=== PATIENT | female | born 1950 | race Caucasian/White ===

== ENCOUNTER 2019-01-09 13:30 | Inpatient (IN) | payer MEDICARE, MEDICAID ==
[~2019-01-09] VITALS: Ht 162.6 cm; Wt 91.2 kg
--- NOTE | ~2019-01-09 | PR ---
[place], [place] PROGRESS NOTE NAME: LEIGH MADDEN UNIT #: [id number] ROOM: 309 DOCTOR: BERTHA BETANCOURT MD BIRTHDATE: [birth year] DOS: 01/14/2019 INTERVAL NOTE CHIEF COMPLAINT: "I am okay." SUMMARY OF THE VISIT: The patient was interviewed as she was resting in a Homa chair. She did open her eyes and make eye contact and engaged in very brief superficial conversation. She voiced no complaints and tended to minimize everything and was rather dismissive. Nurses report she continues to have periods of paranoia and depression. MENTAL STATUS: She is alert and oriented to self, possibly place, but not to time. Mood does seem to be still depressed and still rather paranoid. Memory has gaps. PLAN: To simplify her regimen and to try to lessen the risk of tremors, I will discontinue the Depakote ER and the Invega. I will increase the Cogentin from 0.5 mg twice a day to 1 mg twice a day and substitute the Abilify for the Invega trying to lessen the risk of EPS. We will engage in individual and herbert milieu activity, returning to the least restrictive environment when psychiatrically stable. BERTHA BETANCOURT MD CM:PNTRANS [id number] BERTHA BETANCOURT MD 01/14/19 1123 interface
--- NOTE | ~2019-01-09 | PR ---
[place], [place] PROGRESS NOTE NAME: LEIGH MADDEN UNIT #: [id number] ROOM: 309 DOCTOR: BERTHA BETANCOURT MD BIRTHDATE: [birth year] DOS: 01/17/2019 CHIEF COMPLAINT: "I think I'm doing better, thank you. When can I go?" SUMMARY OF THE VISIT: The patient was interviewed in the dining room. She was sitting in a Homa chair. She smiled brightly as I approached and engaged readily in conversation, reporting that she has noticed that the tremors have become dramatically less. She also feels much better and is brighter and more spontaneous. She convincingly denies sedation, somnolence, or any other medication side effect. MENTAL STATUS: She is alert and oriented with minor time gaps. Mood does seem to be more euthymic. Affect is more appropriate. There is no baron, hypomania or gross psychosis. Short-term memory has mild gaps, otherwise she is intact. PLAN: I will increase her Mysoline from 25 mg at bedtime to 50 mg at bedtime trying to impact positively on the tremor. We will continue to engage in individual and herbert milieu activity, returning to the least restrictive environment when psychiatrically stable. BERTHA BETANCOURT MD CM:PNTRANS [id number] BERTHA BETANCOURT MD 01/17/19 2258 interface
--- NOTE | ~2019-01-09 | PR ---
[place], [place] PROGRESS NOTE NAME: LEIGH MADDEN UNIT #: [id number] ROOM: 309 DOCTOR: BERTHA BETANCOURT MD BIRTHDATE: [birth year] DOS: 01/18/2019 INTERVAL NOTE CHIEF COMPLAINT: "I feel better, but my tremors are not better." SUMMARY OF THE VISIT: The patient was interviewed in the dining area. As I approached, she said good morning honey, how are you. She was much more spontaneous and bright and much more able to converse. She reported that her tremors are not better, but she did seem to be better to me and I did not see significant upper body movement. She does report that her mood is improving and she is less depressed and she is sleeping and eating better. MENTAL STATUS: She is alert and oriented to person, place, approximate to time. Mood does seem to be strongly trending towards euthymia. Affect is much more appropriate. There are no auditory or visual hallucinations, delusions or paranoia. Short-term, intermediate, and long-term memory for the most part are intact. PLAN: I will go ahead and increase the Mysoline from 50 to 100 mg at bedtime. Continue to engage in individual and herbert milieu activity, returning to the least restrictive environment when psychiatrically stable. BERTHA BETANCOURT MD CM:PNTRANS 1 18 BERTHA BETANCOURT MD 01/18/192117 interface
--- NOTE | ~2019-01-09 | PR ---
[place], [place] PROGRESS NOTE NAME: LEIGH MADDEN UNIT #: [id number] ROOM: 309 DOCTOR: BERTHA BETANCOURT MD BIRTHDATE: [birth year] DOS: 01/21/2019 CHIEF COMPLAINT: "I am going home today, no I am going home today." SUMMARY OF THE VISIT: The patient was interviewed in the dining area where she was very adamant about returning back to [place] today. When I told her I did not know if this was possible because transportation might be an issue, she very angrily told me she was planning to leave one way or another. Outwardly prior to me approaching her, she was much calmer and there was no tremor of her upper extremities; however, as I approached her and began to engage her in conversation, the tremors intensify greatly. She is not exhibiting any sedation or somnolence or other side effects from the medications themselves. MENTAL STATUS: She is alert and oriented to person, place, approximate to time. Mood does seem to be more euthymic. Affect is more appropriate. There is no baron, hypomania or psychosis. Short, intermediate, and long-term memory for the most part are intact. PLAN: I will plan to increase her Mysoline from 100 mg at bedtime to 150 mg at bedtime targeting these tremors to see if we can help them dissipate completely. We will explore the possibility of obtaining transportation to [place]. If not, we will finalize transportation for tomorrow. BERTHA BETANCOURT MD CM:PNTRANS [id number] BERTHA BETANCOURT MD 01/21/19 2333 interface
--- NOTE | ~2019-01-09 | PR ---
[place], [place] PROGRESS NOTE NAME: LEIGH MADDEN UNIT #: [id number] ROOM: 309 DOCTOR: GERALD ARIZMENDI CNP BIRTHDATE: [birth year] DOS: 01/12/2019 CHIEF COMPLAINT: "Good." SUMMARY OF THE VISIT: The patient was interviewed as she sat in the dining room. The patient had her head resting on the table. The patient engages minimally in conversation with me, mostly one word answers. The patient does report that she had Sinhala toast and oatmeal, but did not eat the oatmeal. Staff reports that the patient did sleep well last night. She slept for 8 hours. The patient continues to overall displayed depressed mood. MENTAL STATUS EXAMINATION: The patient is alert and oriented. She was cooperative with me. There is no overt baron or hypomania noted. No delusions or paranoia noted. No psychotic symptoms noted. No auditory or visual hallucinations noted. The patient's mood is depressed. Her affect is flat and congruent with mood. PLAN: I will increase the patient's Remeron to 30 mg at bedtime. Plan is for that the Remeron will aid in alleviating depression symptoms. We will continue to encourage the patient to engage in individual and herbert milieu activity. Continue fall and safety precautions. Plan will be to return the patient to the least restrictive environment when she is considered psychiatrically stable. Gerald Arizmendi CNP CM:PNTRANS [phone] GERALD ARIZMENDI CNP 01/12/19 2244 interface
--- NOTE | ~2019-01-09 | PR ---
[place], [place] PROGRESS NOTE NAME: LEIGH MADDEN UNIT #: [id number] ROOM: 309 DOCTOR: GERALD ARIZMENDI CNP BIRTHDATE: [birth year] DOS: 01/13/2019 CHIEF COMPLAINT: "What did you have for breakfast." SUMMARY OF VISIT: The patient was interviewed as she sat in the dining room. The patient was sleeping when I entered; however, she did arouse easily whenever I called her name. The patient continues to have mostly one word answers. However, she did smile at me today and she reported that she feels that her mood is starting to improve. Staff reports that the patient did sleep 7 hours. Her appetite has been good. Taking medications as prescribed. MENTAL STATUS EXAMINATION: The patient is alert and oriented. The patient was pleasant and cooperative with me. No baron or hypomania noted. No delusions or paranoia noted. No psychotic symptoms noted. No auditory or visual hallucinations noted. Mood starting to trend towards euthymia. Affect congruent with mood. PLAN: We will continue the patient's medications as prescribed. The patient seems to be tolerating medications without side effects at this time. We will continue to monitor and support. Continue to encourage the patient to engage in individual and herbert milieu activity. Continue fall and safety precautions. Plan to return the patient to the least restrictive environment when she is considered psychiatrically stable. Gerald Arizmendi CNP CM:PNTRANS [phone] GERALD ARIZMENDI CNP 01/14/19 0031 interface
--- NOTE | ~2019-01-09 | WRIGHTHP ---
[place], [place] PATIENT HISTORY AND PHYSICAL EXAM NAME: LEIGH MADDEN UNIT #: [id number] ROOM: 309 DOCTOR: BERTHA BETANCOURT MD BIRTHDATE: [birth year] DOS: 01/10/2019 INITIAL PSYCHIATRIC EVALUATION CHIEF COMPLAINT: "Yes, I am okay." HISTORY OF PRESENT ILLNESS: This is a 68-year-old white female who is a resident of [facility] in [place], [place]. The patient was recently admitted there and has decompensated greatly with increased depression with poor sleep and appetite, poor ADLs. She also has become increasingly delusional and has been calling out to her brother, who was not present at the time. She has been responding to auditory hallucinations frequently. Complicating matters is recently the patient did fall and hit her head. However, an organic workup was negative. She is admitted now to rule out organic factors, to stabilize on medication and to engage in individual and herbert milieu activity. PAST MEDICAL HISTORY: Remarkable for a history of bipolar disorder, COPD, CVA, falls, debility, hyperlipidemia, hypertension, multiple sclerosis and spinal cord infarction. SOCIAL HISTORY: She is a former cigarette smoker, but does not drink alcohol or use drugs. ALLERGIES: She lists an allergy to SULFACET. STRENGTHS: Good verbal skills. WEAKNESSES: Chronic mental health issues, poor coping skills. MENTAL STATUS: The patient is alert and oriented to self. She was lying on her bed, appearing to be sleeping. She did respond only in one word responses and at no point in time did she ever open her eyes to look at me. She seemed to be somewhat depressed, paranoid. I could not test cognitive functions because of her lack of cooperation. DIAGNOSIS: Major depression, recurrent with psychotic features, rule out bipolar disorder with psychotic features. PLAN: I have discontinued her Risperdal 2 mg twice daily in lieu of Invega 6 mg a day. I have maintained her Depakote. She does have a history of seizure disorder. I have also maintained her p.r.n. hydroxyzine. I have added Remeron 15 mg at bedtime as an antidepressant. We will engage her in individual and herbert milieu activity, returning to the least restrictive environment when psychiatrically stable. [place], [place] PATIENT HISTORY AND PHYSICAL EXAM NAME: LEIGH MADDEN UNIT #: [id number] ROOM: 309 DOCTOR: BERTHA BETANCOURT MD BIRTHDATE: [birth year] BERTHA BETANCOURT MD CM:HISPHYS:PATIENT HISTORY AND PHYSICAL EXAMINATION [id number] BERTHA BETANCOURT MD 01/10/19 1250 interface
--- NOTE | ~2019-01-09 | PR ---
[place], [place] PROGRESS NOTE NAME: LEIGH MADDEN UNIT #: [id number] ROOM: 309 DOCTOR: BERTHA BETANCOURT MD BIRTHDATE: [birth year] DOS: 01/16/2019 CHIEF COMPLAINT: "Oh, how long have I been here." SUMMARY OF THE VISIT: The patient was interviewed in the dining area when I was talking to another patient. I noticed that she was resting comfortably and was not shaking at all. As I approached her, however, the tremors of her upper extremities worsened. Staff notes that this does tend to be a pattern and that it comes and goes. Overall though her mental status has cleared, and she is much more alert and conversant and spontaneous. She looks brighter and she smiles more readily. She reports an improved sleep and improved appetite. MENTAL STATUS: She is alert and oriented to person, place, very approximate to time, however. Mood does seem to be more euthymic. Affect is more appropriate. There is no baron, hypomania or psychosis. Short-term memory still is problematic. PLAN: I will go ahead and add Mysoline 25 mg at bedtime to see if this will impact positively on her tremor. We will engage her in individual and herbert milieu activity, returning to the least restrictive environment when psychiatrically stable. BERTHA BETANCOURT MD CM:PNTRANS 7 BERTHA BETANCOURT MD 01/16/1917 interface
--- NOTE | ~2019-01-09 | PR ---
[place], [place] PROGRESS NOTE NAME: LEIGH MADDEN UNIT #: [id number] ROOM: 309 DOCTOR: BERTHA BETANCOURT MD BIRTHDATE: [birth year] DOS: 01/15/2019 INTERVAL NOTE CHIEF COMPLAINT: "I feel better." Thank you. SUMMARY OF THE VISIT: The patient was interviewed as she was sitting in a Homa chair in the dining room. She had eaten most if not all of her breakfast. She was much more awake and conversant and able to make good eye contact. She still had bilateral upper extremity tremors, but states that she feels better with the new medication changes. MENTAL STATUS: She is alert and oriented to person, place, not time. Mood does seem to be improving. Affect is more appropriate. Speech is more normalized. There is no hypomania or baron. There is no gross psychosis. Short term memory has some gaps, otherwise she is intact. PLAN: I will increase her Cogentin from 1 mg b.i.d. to 1 mg t.i.d., hoping to suppress the tremor. We will monitor and support, engage in individual and herbert milieu activity, returning to the least restrictive environment when psychiatrically stable. BERTHA BETANCOURT MD CM:PNTRANS 4 [phone] BERTHA BETANCOURT MD 01/15/192226 interface
[2019-01-09] MEDS ORDERED: VISTARIL50 MG PO (13:31)
[2019-01-09] MEDS ORDERED: RISPERDAL2 M1 PO (13:32)
[2019-01-09] MEDS ORDERED: BACLOFEN20 M1 PO (13:33)
[2019-01-09] MEDS ORDERED: ASPIRIN81 M1 PO (13:33)
[2019-01-09] MEDS ORDERED: BENZTROPINE ME0.5 MG PO (13:34)
[2019-01-09] MEDS ORDERED: VITAMIN D31000 UNIT PO (13:36)
[2019-01-09] MEDS ORDERED: CLARITIN10 MG PO (13:37)
[2019-01-09] MEDS ORDERED: 'CLONIDINE0.1 MG PO (13:38)
[2019-01-09] MEDS ORDERED: DEPAKOTE SPRIN125 MG PO ×2 (13:39→13:40)
[2019-01-09] MEDS ORDERED: DOCUSATE SODIU100 M2 PO (13:41)
[2019-01-09] MEDS ORDERED: LAMOTRIGINE100 MG PO (13:42)
[2019-01-09] MEDS ORDERED: ZETIA10 MG PO (13:42)
[2019-01-09] MEDS ORDERED: MYRBETRIQ25 M1 PO (13:43)
[2019-01-09] MEDS ORDERED: LOSARTAN POTAS100 M1 PO (13:43)
[2019-01-09] MEDS ORDERED: NORVASC5 MG PO (13:44)
[2019-01-09] MEDS ORDERED: NYSTOP60 GM T (13:46)
[2019-01-09] MEDS ORDERED: OMEGA 3 1,0001 EACH PO (13:47)
[2019-01-09 21:41] VITALS: BP 131/68
--- NOTE | 2019-01-09 21:41 | NUR ---
[facility] 68[facility] under the services of BERTHA Sheriff MD with a diagnosis of MAJOR DEPRESSION RECURRENT WITH PSYCHOTIC FEATURES. Chief complaint is INCREASED DELUSIONS. Patient arrived via wheel chair from [facility] ER. Initial assessment completed. Vital signs taken and recorded. BERTHA SHERIFF MD notified of admission to the unit. Orders received. See assessment for past medical history, medications and allergies. Patient oriented to unit. [facility]. Clothing/patient valuable form completed. ARACELI DAVIS
--- NOTE | 2019-01-09 22:29 | NUR ---
DR CHEATHAM NOTIFIED OF ADMISSION. MED REC READY. HE IS COVERING FOR DR HOPKINS HOSPITALIST
--- NOTE | 2019-01-09 23:08 | NUR ---
ON UNIT TO SEE PATIENT AT THIS TIME, UPDATE PROVIDED. NO NEW ORDERS RECIEVED.
--- NOTE | 2019-01-09 23:56 | NUR ---
PT UNABLE TO PARTICIPATE IN ADMISSION PROCESS, AGITATED UPON AWAKENING. INFORMATION FOR ADMISSION PROVIDED FROM FACILITY. SKIN ASSESSMENT COMPLETE, NO OPEN AREAS OBSERVED. PT HAS "L" SHAPED SCABBING NOTED ON RIGHT CALF APPROX 5CM X 5CM, SCAB ON RIGHT HIP APPROX 1CM X .5CM, MULTIPLE SCABS ON LEFT KNEE AREA AND BRUISING ON BILATERAL LEGS. PER PREVIOUS FACILITY PT HAS HX OF DROPPING LIT CIGARETTES ON SELF DUE TO NOT BEING ABLE TO HOLD THEM. PT ALSO HAS 2+ NON PITTING EDEMA IN LEFT FOOT, 2-3+ PITTING EDEMA IN RIGHT FOOT, NO ERYTHEMA NOTED. PT ASSIST X3, INCONTINENT OF BOWEL AND BLADDER. MEDICATION COMPLIANT WITH MINIMAL DIFFICULTY, REFUSED TO PARTICIPATE IN EDUCATION. PT CURRENTLY LAYING DOWN WITH EYES CLOSED, RESPIRATIONS EASY AND REGULAR, NO SIGNS OR SYMPTOMS OF DISTRESS NOTED.
--- NOTE | 2019-01-10 05:54 | NUR ---
PATIENT OBSERVED ON Q 15 MIN CHECKS TO HAVE SLEPT APPROX 6 HOURS THROUGHOUT THE NIGHT WITH NO AWAKENINGS OR SIGNS AND SYMPTOMS OF DISTRESS NOTED.
[2019-01-10 06:19] LABS: BASO % 0.5 % (0.0-1.0); EOS # 0.2 10*3/uL (0.0-0.4); EOS % 3.1 % (1.0-4.0); HEMATOCRIT 41.6 % (37.0-47.0); LYMPH % 33.1 % (27.0-41.0); MEAN CELL VOLUME 95.2 fl (81.0-99.0); MEAN CORPUSCULAR HGB 29.7 pg (27.0-31.0); MEAN CORPUSCULAR HGB CONC 31.3 g/dl (33.0-37.0); MEAN PLATELET VOLUME 12.7 fl (9.6-12.3); MONO # 0.7 10*3/uL (0.1-1.0); NEUT # 3.2 10*3/uL (2.3-7.9); NEUT % 51.6 % (47.0-73.0); PLATELET COUNT AUTOMATED 117 10*3/uL (130-400); RED BLOOD COUNT 4.37 10*6/uL (4.10-5.10); RED CELL DISTRI WIDTH 15.3 % (0-14.5); WHITE BLOOD COUNT 6.1 10*3/uL (4.8-10.8)
--- NOTE | 2019-01-10 06:34 | NUR ---
PATIENT IRRITABLE THIS AM, REFUSED TO GET OUT OF BED STATING SHE IS STILL TIRED. PT ALSO REFUSED AM MEDICATIONS AFTER X3 ATTEMPTS, WILL NOT PARTICIPATE IN MEDICATION EDCUATION AT THIS TIME. NO SIGNS OR SYMPTOMS OF DISTRESS NOTED.
[2019-01-10 06:47] LABS: ALBUMIN 2.6 gm/dl (3.1-4.5); ALKALINE PHOSPHATASE 78 U/L (45-117); BUN 17 mg/dl (7-24); CHLORIDE 111 mmol/L (98-107); CHOLESTEROL 134 mg/dL (<200); CREATININE 0.81 mg/dL (0.55-1.02); POTASSIUM 3.9 mmol/L (3.5-5.1); SGOT/AST 10 IU/L (3-35); SGPT/ALT 14 U/L (12-78); SODIUM 144 mmol/L (136-145); TOTAL PROTEIN 5.4 gm/dL (6.4-8.2); TRIGLYCERIDES 85 mg/dl (<150); VLDL CHOLESTEROL 17 mg/dL (6-40)
[2019-01-10 06:57] LABS: HDL CHOLESTEROL 50 mg/dl (40-60); LDL CHOLESTEROL 67 mg/dL (9-159)
[2019-01-10 07:30] VITALS: BP 127/68
--- NOTE | 2019-01-10 07:33 | NUR ---
PHYSICAL THERAPY Nursing screen received. PT orders also received. Thank you. Maricruz Dumont,PT
--- NOTE | 2019-01-10 08:15 | NUR ---
Treatment Plan meeting with Dr. Baeza, RN, AT, SW and Violin Repairer. Plan for discharge Next week. Pt. will return to [facility].
--- NOTE | 2019-01-10 08:40 | NUR ---
PHYSICAL THERAPY PAtient in bed, soundly sleeping. PAtient would mumble a few words but unable to speak coherently and keep eyes open or stay awake. Staff aware. Will attempt at a later time or date. Thank you for this referral. Maricruz Dumont,PT
--- NOTE | 2019-01-10 08:49 | NUR ---
Patient in bed and did not get up for breakfast. When asked if she wanted to participate in therapy she shook her head yes but was unable to open her eyes or be alert to cooperate for OT eval. OTR will attempt at a later date. Winter Carias OTR/Fadia
[2019-01-10 10:08] LABS: VITAMIN D, 25-HYDROXY 39.9 ng/mL (30-100)
--- NOTE | 2019-01-10 11:39 | NUR ---
AM GROUP/STRESS REDUCTION PT ATTENDED GROUP AND PARTICIPATED BY LISTENING TO RELAXING MUSIC. PT EXHIBITED NO AGITATION DURING GROUP, WAS PLEASANT AND COOPERATIVE AND REQUESTED SOMETHING TO EAT. PT EXPRESSED NO DELUSIONS DURING GROUP.
--- NOTE | 2019-01-10 11:40 | NUR ---
DR. HOPKINS ON UNIT TO ASSESS PATIENT.
--- NOTE | 2019-01-10 14:19 | NUR ---
Nursing screen received and Occupational Therapy referral received. Thank you. Winter Carias OTR/l
--- NOTE | 2019-01-10 15:33 | NUR ---
PM GROUP PT DID NOT ATTEND AFTERNOON GROUP THERAPY. PT WAS IN BED NAPPING
--- NOTE | 2019-01-10 15:39 | NUR ---
P: DEPRESSED MOOD, FLAT AFFECT, DELUSIONAL THOUGHTS. I: ONE ON ONE TO EXPRESS EMOTIONAL FEELINGS, ENCOURAGE PATIENT TO BE OUT OF ROOM AND PARTICIPATE IN GROUP SESSIONS. R: PATIENT WAS UP IN WHEELCHAIR ALL MORNING UNTIL AFTER LUNCH. PATIENT SLEPT DURING GROUP SESSION. PATIENT IS ALERT AND ORIENTED TO PERSON, AWARE OF BEING IN HOSPITAL, DATE AND SITUATION. PATIENT BELIEVES SHE IS IN [facility]. MOOD IS DEPRESSED WITH FLAT AFFECT AND HOPELESS/HELPLESS. SLOW TO THOUGHT PROCESS DURING INTERVIEW. PATIENT TALKED TO NURSE WITH EYES CLOSED. DENIES ANY HALLUCINATIONS, DELUSIONS, HI/SI OR PAIN. PATIENT REPORTED HAVING SOME CRAZY THOUGHTS THAT GOT HER IN HERE BUT IS NOT HAPPENING NOW. ONLY ONE SINGLE EPISODES. 2 PERSON ASSIST WITH ACTIVITIES OF DAILY LIVING, INCONTINENT OF BOWEL AND BLADDER. 2 PERSON MECHANICAL LIFT FOR TRANSFERS. SET UP FOR MEALS. 1 ASSIST WITH MEALS DUE TO UPPER EXTREMITIES TREMORS. MEDICATION COMPLAINT WITH EDUCATION PROVIDED. Q 15 MINUTE SAFETY CHECKS MAINTAINED P: CONTINUE TO MONITOR FOR MOOD CHANGES, DELUSIONAL THOUGHTS AND GROUP PARTICIPATION. ENCOURAGE PATIENT PATIENT IN GROUP, PROVIDE ONE ON ONE AND REDIRECTION NEEDED.
[2019-01-10 20:00] VITALS: BP 114/97
--- NOTE | 2019-01-11 05:23 | NUR ---
P: WITHDRAWN I: ENCOURAGED PATIENT TO INTERACT WITH STAFF AND PEERS, ENCOURAGED MEDICATION COMPLIANCE. MONITORED BEHAVIORS WITH Q15 MINUTE SAFETY CHECKS. R: PT REMAINED WITHDRAWN AND QUIET P: CONTINUE TO ENCOURAGE MEDICATION COMPLIANCE, INTERACTIONS WITH STAFF AND PEERS, AND CONTINUE TO MONITOR BEHAVIORS WITH Q15 MINUTE SAFETY CHECKS.
--- NOTE | 2019-01-11 05:35 | NUR ---
PT SLEPT APPROXIMATELY 6 HOURS THIS SHIFT. Q15 MINUTE SAFETY CHECKS MAINTAINED.
--- NOTE | 2019-01-11 08:30 | NUR ---
Treatment Plan meeting with Monica CHAHAL, RN, AT, SW and Esthetic Dermatologist. Plan for discharge next week. Pt. will return to [facility].
[2019-01-11 08:51] VITALS: BP 140/74
--- NOTE | 2019-01-11 09:22 | NUR ---
Spoke with Milady at [facility] and Advised of plans to discharge next week. Clinical Updates faxed to [facility] Attn: Milady.
--- NOTE | 2019-01-11 11:30 | NUR ---
DR. HOPKINS ON UNIT TO ASSESS PATIENT.
--- NOTE | 2019-01-11 11:37 | NUR ---
AM GROUP/ART AND MUSIC PT WAS PRESENT FOR MORNING GROUP THERAPY BUT IS UNABLE TO PARTICIPATE AT THIS TIME DUE TO COGNITION AND HAND TREMORS. PT DID ENGAGE IN CONVERSATION WITH THIS HEEL BUILDER MACHINE AND EXPRESSED NO DELUSIONAL IDEATIONS DURING GROUP.
--- NOTE | 2019-01-11 11:38 | NUR ---
PHYSICAL THERAPY Spoke in length with staffing/nurse. PAtient is chornic earl and terminologist care. PAtient with no PT skills/needs. Will D/c PT orders at this time. RecommenD daily ROM with nursing care. Thank you for this referral. Maricruz Dumont,PT
--- NOTE | 2019-01-11 14:08 | NUR ---
Kacie Santacruz was evaluated by occupational therapy on 01/11/19. She has intention tremors of bilateral UE. Her bilateral UE AROM and strength were grossly evaluated secondary to her declining to participate with MMT. Her UE strength and ROM are impaired. She uses weighted silverware at the ECF but declines to attempt self-feeding during her evaluation. Patient has all necessary adaptive equipment at the ECF to complete self-feeding. No further acute OT at this time. Recommend return to ECF when patient is discharged. Sierra Contreras OTR/L
--- NOTE | 2019-01-11 15:34 | NUR ---
PM GROUP/LEISURE INTERESTS PT WAS IN DAYROOM AT START OF GROUP BUT WAS TAKEN TO BE TOILETED AND TO ROOM TO REST.
--- NOTE | 2019-01-11 18:53 | NUR ---
P: DEPRESSED MOOD, INTENTION UPPER BODY TREMORS AT WILL. HAND TREMORS WHILE EATING CHIP AND DROPPING BAG ON FLOOR, INTENTION HAND TREMORS TO FACE. I: ONE ON ONE AND REDIRECTION PROVIDED R: AFTER REDIRECTION, PATIENT'S HAND TREMORS STOPPED. PATIENT IS ALERT TO PERSON, PLACE, AND SITUATION; ABLE TO RECALL IN HOSPITAL, MONTH AND YEAR. PATIENT HAS INTERMITTANT CONFUSION. DENIES ANY HALLUCINATIONS, DELUSION, HI/SI OR PAIN. INTERACTIVE WITH STAFF AND PARTICIPATES IN GROUP SESSION. 1-2 PERSON ASSIST WITH ACTIVITIES OF DAILY LIVING, INCONTINENT OF BOWEL AND BLADDER, SET UP FOR MEALS, WITH ASSIST NEEDED. INTAKES ARE GOOD WITH ADEQUATE FLUIDS. TRANSFERS VIA MECHANICAL LIFT, 2 ASSIST. MEDICATION COMPLAINT WITH EDUCATION PROVIDED. Q 15 MINUTE SAFETY CHECKS MAINTAINED. P: CONTINUE TO MONITOR CONFUSION, TREMORS, MEDICATION COMPLIANCE; PROVIDE ONE ON ONE AND REDIRECTION NEEDED.
[2019-01-11 19:59] VITALS: BP 115/75
--- NOTE | 2019-01-11 21:34 | NUR ---
PT REQUESTED TYLENOL FOR A HEADACHE WITH A PAIN LEVEL OF 8 OUT 10. WHEN PATIENT WAS ASKED IF SHE GETS A LOT OF HEADACHES PT STATED YES. WHEN ASKED WHAT TRIGGERS HER HEADACHES PATIENT STATED STRESS. PT UNABLE TO ELABORATE ON WHAT THE STRESS IS THAT TRIGGERS HEADACHES. PT STATED JUST EVERYTHING. PRN TYLENOL 650 MG GIVEN AT THIS TIME.
--- NOTE | 2019-01-11 22:30 | NUR ---
PRN TYLENOL EFFECTIVE. PT RESTING QUIETLY IN BED AT THIS TIME. WILL CONTINUE TO MONITOR EFFECTIVENESS OF MEDICATION.
--- NOTE | 2019-01-12 04:44 | NUR ---
P: WITHDRAWN I: ENCOURAGED PATIENT TO INTERACT WITH STAFF AND PEERS, ENCOURAGED MEDICATION COMPLIANCE. MONITORED BEHAVIORS WITH Q15 MINUTE SAFETY CHECKS. R: PT REMAINED WITHDRAWN AND QUIET P: CONTINUE TO ENCOURAGE MEDICATION COMPLIANCE, INTERACTIONS WITH STAFF AND PEERS, AND CONTINUE TO MONITOR BEHAVIORS WITH Q15 MINUTE SAFETY CHECKS. SEE [facility] FLOWS[facility]ET FOR SPECIFIC MONITORING.
--- NOTE | 2019-01-12 05:21 | NUR ---
24 HR chart check completed.
--- NOTE | 2019-01-12 05:21 | NUR ---
PT SLEPT APPROXIMATELY 8 HOURS THIS SHIFT. Q15 MINUTE SAFETY CHECKS MAINTAINED.
[2019-01-12 07:33] VITALS: BP 138/82
--- NOTE | 2019-01-12 08:30 | NUR ---
Patient resting quietly with no c/o discomfort. Respirations easy and regular. Vital signs stable. No overt distress. MARIANO HALL
--- NOTE | 2019-01-12 10:00 | NUR ---
DR HOPKINS ON UNIT TO SEE PT
--- NOTE | 2019-01-12 11:45 | NUR ---
AM GROUP/MUSIC/LEISURE SKILLS PT ATTENDED AND PARTICIPATED SPORADICALLY IN DISCUSSION. PT HAD HEAD LAYING ON TABLE MOST OF GROUP. PT SUDDENLY STARTS SHAKING HAND BACK AND FORTH TOWARDS FACE ALMOST HITTING HERSELF, THIS STAFF HAS PT TAKE A DEEP BREATH AND PT STOPPED. PT DID NOT EXPRESS ANY DELUSIONS OR AGITATION AT THIS TIME. PT WILL CONTINUE TO ATTEND AND PARTICIPATE TO BEST OF ABILITY IN FUTURE GROUP SESSIONS.
--- NOTE | 2019-01-12 16:21 | NUR ---
PM GROUP/KELVIN PT ATTENDED AND PARTICIPATED DURING GROUP. PT SPORADICALLY MOVING ARM BACK AND FORTH IN RUBBING MOTION ON TABLE. PT DID NOT EXPRESS ANY DELUSIONS OR AGITATION AT THIS TIME. PT WILL CONTINUE TO ATTEND AND PARTICIPATE IN FUTURE GROUP SESSIONS.
--- NOTE | 2019-01-12 17:04 | NUR ---
P: LACK OF PARTICIPATION OR INTERACTION WITH PEERS OR STAFF, NOT ASSISTING WITH CARE I:ENCOURAGE MILIEU ACTIVITIES, GROUP PARTICIPATION, MEDICATION COMPLIANCE R: PT DID START TO REACT MORE THIS AFTERNOON WITH STAFF AND PEERS, OBSERVING AND KEEPING HEAD OFF OF TABLE, SHE HAS BEEN MEDICATION COMPLIANCE, WHEN ATTEMPTING 1:1 WITH PT SHE WOULD NOT RESPOND WITH MORE THEN A YES OR NO P: CONITNUE TO MONITOR WITH 15 MIN CHECKS AND ENCOURAGE INTERACTION, MEDICATION COMPLIANCE, PT HAS NO SI/HI OR DELUSIONS NOTED AT THIS TIME.
[2019-01-12 20:11] VITALS: BP 107/84
--- NOTE | 2019-01-12 22:00 | NUR ---
Medicated with Tylenol po prn for c/o headache. Will monitor effectiveness.
--- NOTE | 2019-01-12 22:33 | NUR ---
Patient alert and oriented x3. No SI/HI noted. No signs of any hallucinations/delusions noted at this time. Patient withdrawn/isolative when among other patients. Patient compliant with medications without any difficulty. Encouraged patient to participate in activities with other patients. Provided 1:1 with patient for emotional support. Plan to encourage medication compliance and plan to continue to encourage group participation. Plan to continue to provide 1:1 for emotional support. Q 15 minute safety checks continued and maintained. See [facility] flowsheet for further documentation.
--- NOTE | 2019-01-13 00:38 | NUR ---
24 HR chart check completed.
--- NOTE | 2019-01-13 05:29 | NUR ---
Patient slept approx. 7 hours throughout shift. Q 15 minute safety checks continued and maintained.
[2019-01-13 07:35] VITALS: BP 124/72
--- NOTE | 2019-01-13 08:00 | NUR ---
Patient does not want to feed self for breakfast this amRespirations easy and regular. laying head on table, will arouse when spoken to and turn head away from staff continue to encourage pt to be independant at this time. Vital signs stable. No overt distress. MARIANO HALL
--- NOTE | 2019-01-13 11:57 | NUR ---
AM GROUP/MUSIC/LEISURE SKILLS PT ATTENDED BUT SLEPT IN RECLINER ENTIRE TIME TO NOT WAKE UNTIL LUNCH. PT WILL CONTINUW TO ATTEND GROUP AND BE ENCOURAGED TO PARTICIPATE TO BEST OF PT ABILITY.
--- NOTE | 2019-01-13 17:43 | NUR ---
P: WITHDRAWN, NON REACTIVE WITH STAFF, SLEEPING FREQUENTLY I: SPOKE WITH GERALD CEDENO CNP, NEW ORDERS FOR LABS, AND MEDICATIONS ADJUSTMENTS, PT PLACED IN BARBARA CHAIR FOR POSITIONING DUE TO LEANING ON TABLE FREQUENTLY, 1:1 WITH PT TO ASSIST WITH STIMULATION DIRECTLY R: PT MORE ALERT THIS AFTERNOON, SPOKE WITH THIS NURSE JESSICA ABOUT WHAT THE SCHEDULE FOR THE DAY INCLUDED. AT THIS TIME PT TOLERATING WELL P:CONTINUE TO ENGAGE IN MILEU ACTIVITES, ENGAGE PATIENT WITH INTERACTION MONITOR 15 MIN CHECKS
[2019-01-13 19:49] VITALS: BP 127/67
--- NOTE | 2019-01-13 21:43 | NUR ---
SLEEPING IN CHAIR. ANSWERS QUESTIONS BUT NOT INTERESTED IN PROLONGED CONVERSATIONS. MEDICATION COMPLIANT. BILAT PEDAL EDEMA NOTED. PULSES DISTANT BUT PRESENT. REMINDED CLIENT I AM AVAILABLE AT ANYTIME TO TALK. MOVING SELF AROUND IN GERICHAIR. TAKING FLUIDS WELL
--- NOTE | 2019-01-14 02:20 | NUR ---
24 HR chart check completed.
--- NOTE | 2019-01-14 05:47 | NUR ---
INTERMITTENT SLEEP. 7 BROKEN HOURS. CLIENTS MOVING ALL EXTREMETIES. PUTTING LEGS OVER RAILS. DRESSING AND UNDRESSING SELF
[2019-01-14 07:27] VITALS: BP 124/65
--- NOTE | 2019-01-14 07:44 | NUR ---
PT AWAKE, ALERT, RESPS EASY AND EVEN ON ROOM AIR, EATING BREAKFAST IN DINING ROOM WITH PEERS.
--- NOTE | 2019-01-14 08:00 | NUR ---
Treatment Plan meeting with Dr. Baeza, RN, AT, SW and Wound Care Coordinator. Plan for discharge Next week. Pt. will return to [facility].
--- NOTE | 2019-01-14 08:06 | NUR ---
ON UNIT TO SEE PT AT THIS TIME, UPDATE GIVEN.
--- NOTE | 2019-01-14 10:27 | NUR ---
BRETT HEATING AND VENTILATING DRAFTER ON UNIT TO SEE PT AT THIS TIME, UPDATE GIVEN, MADE AWARE OF URINE CULTURE RESULTS, FOSFOMYCIN NOT GIVEN OR ORDERED PER CHART AND PHARMACY. BRETT TO REVIEW AND ENTER NEW ORDERS APPROPRIATE.
--- NOTE | 2019-01-14 11:53 | NUR ---
AM GROUP/EXERCISE PT WAS PRESENT FOR GROUP BUT IS UNABLE TO PARTICIPATE AT THIS TIME. PT WAS RECLINED IN A BARBARA CHAIR SLEEPING FOR MOST OF GROUP.
--- NOTE | 2019-01-14 13:30 | NUR ---
PT'S IN FOR VISITATION, UPDATE GIVEN. ALL QUESTIONS ANSWERED.
--- NOTE | 2019-01-14 14:51 | NUR ---
Met with pt's Bony briefly. Bony shared that he notices some improvement in pt. Discussed pt's possible MS diagnosis. Discharge plan remains for pt to return to [facility].
--- NOTE | 2019-01-14 15:10 | NUR ---
PT SPOKE WITH HER SISTER OMAR ON THE PHONE, OMAR REQUESTED UPDATES FROM NURSING REGARDING PT. PT GAVE VERBAL CONSENT FOR THIS RN TO SPEAK WITH AND UPDATE SISTER.
--- NOTE | 2019-01-14 15:30 | NUR ---
PT SIGNED AUTHORIZATION FOR RELEASE OF INFORMATION ALLOWING THIS RN TO CONTACT [facility]'S NEUROLOGY DEPARTMENT REQUESTING INFORMATION/TEST RESULTS REGARDING RECENT TESTING FOR POSSIBLE MULTIPLE SCLEROSIS DIAGNOSIS WHICH PT'S STATES THEY HAVE NOT YET RECIEVED. FAXED REQUEST SENT TO [facility] PER INSTRUCTIONS RECIEVED FROM [facility]'S MEDICAL RECORDS DEPARTMENT. FAX CONFIRMATION RECIEVED.
--- NOTE | 2019-01-14 15:38 | NUR ---
PM GROUP/LEISURE INTERESTS PT WAS PRESENT FOR GROUP BUT DID NOT PARTICIPATE. PT WAS SLEEPING IN A BARBARA CHAIR AND DID NOT AWAKEN.
--- NOTE | 2019-01-14 16:29 | NUR ---
P- NAPPING INTERMITTENTLY T/O SHIFT. EASILY AROUSABLE VIA VERBAL/TACTILE STIMULI. MEDICATION COMPLIANT WITHOUT DIFFICULTY. SIGNIFICANT TREMOR NOTED TO RIGHT UPPER EXTREMITY AT TIMES, PT WAS ABLE TO TO CONTROL TREMOR TO SIGN NAME. I- ORIENTATION, MOOD AND BEHAVIOR ASSESSED. ASSESSED PT FOR SI/HI, INTENT OR PLAN. ASSESSED PT FOR S/S HALLUCINATIONS, PARANOIA AND/OR DELUSIONS. MEDICATIONS ADMINISTERED PER PHYSICIAN'S ORDERS. ASSISTANCE WITH ADL CARE PROVIDED NEEDED. ENCOURAGED PT TO ATTEND AND PARTICIPATE IN [employer] [facility] GROUPS AND ACTIVITIES. R- PT IS ALERT AND ORIENTED TO PERSON, APPROXIMATE PLACE AND TIME, PT STATED SHE BELIEVED SHE WAS IN "[facility]". PT STATED THE DATE "JANUARY 07, 2019" EASILY REORIENTED, PT STATES "OH YEAH, THAT'S RIGHT, I WAS CLOSE". MOOD APPEARS STABLE THIS SHIFT, AFFECT BLUNTED. SPEECH IS SOFT, COHERENT, ABLE TO MAKE NEEDS KNOWN WITHOUT DIFFICULTY. PT DENIES SI/HI, INTENT OR PLAN. PT DENIES HALLUCINATIONS, NO RESPONSE TO INTERNAL STIMULI NOTED. NO PARANOIA OR DELUSIONS NOTED. PT IS MEDICATION COMPLIANT WITHOUT DIFFICULTY. GRISEL LIFT FOR TRANSFERS, INCONTINENCE CARE PROVIDED BY STAFF. PT IS MED COMPLIANT WITHOUT DIFFICULTY. NO DISTRESS NOTED. P- PLAN TO CONTINUE CURRENT TREATMENT, CONTINUE TO MONITOR MOOD AND BEHAVIORS, PROVIDE APPROPRIATE REORIENTATION, REDIRECTION AND 1:1 NEEDED. CONTINUE TO ENCOURAGE MEDICATION COMPLIANCE WELL GROUP ATTENDANCE AND PARTICIPATION.
--- NOTE | 2019-01-14 17:05 | NUR ---
PRN TYLENOL 650MG PO GIVEN AT THIS TIME PER PT REQUEST FOR C/O GENERALIZED DISCOMFORT, NOT RATED ON PAIN SCALE. UNRELIEVED BY REPOSITIONING/NONPHARMALOGICAL MEASURES. WILL MONITOR FOR MEDICATION EFFECTIVENESS.
--- NOTE | 2019-01-14 18:31 | NUR ---
SHIFT CHART CHECK COMPLETED.
[2019-01-14 20:00] VITALS: BP 132/69
--- NOTE | 2019-01-14 20:38 | NUR ---
EVENING/RELAXTION/AROMATHERAPY PT ATTENDED AND SLEPT HALF OF GROUP THEN WOKE FOR SNACK. PT DID NOT BECOME DELUSIONAL AT THIS TIME. PT WILL ATTEND FUTURE GROUP SESSIONS AND BE ENCOURAGED TO PARTICIPATE TO BEST OF ABILITY.
--- NOTE | 2019-01-14 21:34 | NUR ---
INTERACTIVE WHEN SPOKE TO. MEDICATION COMPLIANT. UP IN GERICHAIR WHILE EATING SNACK. MOVING ALL EXTREMETIES. NO TREMORS NOTED UNTIL I SPOKE TO HER ABOUT MEDICATIONS. TREMORS STOPPED AFTER STAFF WALKED AWAY. CONTINUES TO ASSIST STAFF TO STANDING AND PIVOTING TO BED, CONTINUING TO USE GRISEL
--- NOTE | 2019-01-15 02:49 | NUR ---
24 HR chart check completed.
--- NOTE | 2019-01-15 05:34 | NUR ---
SLEPT WELL PAST 2215PM WITH FEW AWAKENINGS
[2019-01-15 07:22] VITALS: BP 115/62
--- NOTE | 2019-01-15 08:00 | NUR ---
Treatment Plan meeting with Dr. Baeza, RN, AT, SW and Disaster Recovery Analyst. Plan for discharge next week. Dr. Baeza working on Medication Changes.
--- NOTE | 2019-01-15 08:24 | NUR ---
RM AGRAWAL ON UNIT TO SEE PT
[2019-01-15 08:56] VITALS: BP 130/78
--- NOTE | 2019-01-15 10:21 | NUR ---
Received a voicemail msg from pt's requesting a return call to discuss Dr Baeza's findings and treatment plan. This senior technical writer spoke with Dr Baeza during treatment team and then phoned pt's Bony. Explained to Bony the med changes that Dr Baeza has made and the reasoning behind the changes. Informed Bony that the release was sent to [facility] to obtain the results of MS testing but the results have not yet been received.
--- NOTE | 2019-01-15 11:34 | NUR ---
AM GROUP/EXERCISE AND POSITIVITY PT ATTENDED GROUP AND PARTICIPATED TO THE BEST OF HER ABILITY WITH THE EXERCISES. PT EXPRESSED NO DELUSIONAL IDEATIONS DURING GROUP.
--- NOTE | 2019-01-15 15:40 | NUR ---
PM GROUP PT WAS PRESENT FOR AFTERNOON GROUP THERAPY BUT IS UNABLE TO PARTICIPATE DUE TO HAND TREMORS. PT LISTENS AND WILL JOIN IN ON GROUP CONVERSATION. PT DID EXPRESS A DELUSIONAL IDEATION WHILE OUT IN THE [place]ERS THAT WAS WITNESSED BY NURSE.
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
[2019-01-15 20:00] VITALS: BP 119/66
--- NOTE | 2019-01-15 20:45 | NUR ---
PLEASENT AND INTERACTIVE. LARGE SMILE ON FACE. ANSWERS QUESTIONS APPROPRIATE. NO C/O EXCEPT SHE IS READY FOR BED. MEDICATION COMPLIANT BILAT LOWER EXTREMTY EDEMA SHOWS NO CHANGE. WILL CONTINUE TO MONITOR
--- NOTE | 2019-01-16 06:08 | NUR ---
SLEPT WELL PAST 2300
--- NOTE | 2019-01-16 06:09 | NUR ---
24 HR chart check completed.
[2019-01-16 07:43] VITALS: BP 134/70
--- NOTE | 2019-01-16 08:30 | NUR ---
Treatment Plan meeting with Dr. Baeza, RN, AT, SW and Commercial Glazier. Plan for discharge next week with return to [place].
--- NOTE | 2019-01-16 11:36 | NUR ---
AM GROUP/MUSIC THERAPY PT WAS PRESENT FOR MORNING GROUP THERAPY AND PARTICIPATED BY READING ALONG AND LISTENING TO MUSIC LYRICS. PT BECAME TEARFUL AT THE SONG AND WAS ABLE TO EXPRESS HER FEELINGS ABOUT IT. PT EXPRESSED NO DELUSIONAL IDEATIONS DURING GROUP
--- NOTE | 2019-01-16 14:36 | NUR ---
PATIENT IS ALERT TO PERSON, PLACE, SITUATION, ALONG WITH MONTH AND YEAR. ABLE TO VOICE NEEDS. PATIENT STRAIGHT CATHED FOR UA/C&S, TOLERATED WELL. MOOD IS STABLE. DENIES ANY HALLUCINATIONS, DELUSIONS, HI/SI OR PAIN. MEDICATION COMPLAINT WITH EDUCATION PROVIDED. Q 15 MINUTE SAFETY CHECKS. 1 PERSON ASSIST WITH ACTIVITIES OF DAILY LIVING, MIXED CONTINENCE OF BLADDER, CONTINENT OF BOWEL. SET UP FOR MEALS, INTAKES ARE GOODS WITH ADEQUATE FLUIDS. PATIENT ASSISTS WITH DAILY CARE. INTERACTIVE WITH STAFF AND PARTICIPATES IN GROUP SESSIONS. PATIENT STATES TREMORS ARE LESS. CONTINUE TO MONITOR FOR HALLUCINATIONS, DELUSIONS, HI/SI OR PAIN. PROVIDE ONE ON ONE AND REDIRECTION/ORIENTATION NEEDED.
--- NOTE | 2019-01-16 14:57 | NUR ---
Clinical Updates faxed to [facility].
[2019-01-16 14:58] LABS: BILIRUBIN NEGATIVE (NEGATIVE); BLOOD NEGATIVE (NEGATIVE); CLARITY SL CLOUDY (CLEAR); COLOR YELLOW (YELLOW); GLUCOSE NEGATIVE (NEGATIVE); KETONE NEGATIVE (NEGATIVE); LEUKO ESTERASE TRACE (NEGATIVE); NITRITE POSITIVE (NEGATIVE); PH 7.5 (5.0-9.0); SPECIFIC GRAVITY 1.015 (1.005-1.030)
[2019-01-16 15:07] LABS: BACTERIA 4+
--- NOTE | 2019-01-16 15:24 | NUR ---
Shift chart check completed.
--- NOTE | 2019-01-16 15:38 | NUR ---
PM GROUP/WRITING THERAPY PT WAS PRESENT AT THE START OF GROUP AND WAS VERY AGITATED. PT STATED, "HEY, YOU NEED TO GET ME CLEANED UP AND CHANGE MY SHIRT." NURSE WAS NOTIFIED AND PT WAS REMOVED FROM GROUP TO BE SHOWERED AND CHANGED.
[2019-01-16 20:00] VITALS: BP 133/75
--- NOTE | 2019-01-16 21:47 | NUR ---
Patient alert and oriented x3. No SI/HI noted. No signs of any hallucinations/delusions noted at this time. Patient withdrawn/isolative when among other patients. Patient compliant with medications without any difficulty. Encouraged patient to participate in activities with other patients. Provided 1:1 with patient for emotional support. Plan to encourage medication compliance and plan to continue to encourage group participation. Plan to continue to provide 1:1 for emotional support. Q 15 minute safety checks continued and maintained. See [facility] flowsheet for further documentation.
--- NOTE | 2019-01-17 00:11 | NUR ---
24 HR chart check completed.
--- NOTE | 2019-01-17 05:36 | NUR ---
Patient slept approx. 5 1/2 hours with multiple awakenings throughout shift. Q 15 minute safety checks continued and maintained.
[2019-01-17 07:48] VITALS: BP 121/67
[2019-01-17 08:00] VITALS: BP 121/67
--- NOTE | 2019-01-17 10:30 | NUR ---
Treatment Plan meeting with Dr. Baeza, RN, AT, SW and Senior Clinical Study Manager. Plan for discharge next week. Pt. will return to [facility].
--- NOTE | 2019-01-17 11:35 | NUR ---
AM GROUP/EXERCISE PT WAS PRESENT FOR MORNING GROUP THERAPY RECLINED IN A BARBARA CHAIR SLEEPING. PT DID NOT PARTICIPATE IN EXERCISE.
--- NOTE | 2019-01-17 15:27 | NUR ---
PM GROUP/LEISURE INTERESTS PT WAS PRESENT FOR AFTERNOON GROUP AND ASKED TO WATCH A MOVIE. PT SOON FELL ASLEEP AND ASKED IF SHE COULD BE TAKEN TO HER ROOM? NURSE TOOK PT TO NAP. PT EXPRESSED NO DELUSIONAL IDEATIONS DURING GROUP
--- NOTE | 2019-01-17 17:04 | NUR ---
PATIENT IS ALERT TO PERSON, DATE AND SITUATION; ABLE TO VOICE NEEDS. MOOD IS STABLE WITH PLEASANT DEMEANOR. SLIGHT CONFUSION NOTED-SHORT TERM MEMORY DEFICITS. DENIES ANY HALLUCINATIONS, DELUSIONS, HI/SI OR PAIN. PRUNE JUICE PROVIDED FOR COMPLAINTS OF CONSTIPATION WITH EFFECTIVE RESULTS. PATIENT IS INTERACTIVE WITH STAFF AND OTHER PATIENTS. PATIENT UP IN BARBARA CHAIR, RECLINED FOR COMFORT. 1-2 PERSON ASSIST WITH ACTIVITIES OF DAILY LIVING, BOTH CONTINENT AND INCONTINENT OF BOWEL AND BLADDER. SET UP FOR MEALS, INTAKES ARE GOOD WITH ADEQUATE FLUIDS. HAND TREMORS HAVE LESSENED. Q 15 MINUTE SAFETY CHECKS MAINTAINED. MEDICATION COMPLIANT WITH EDUCATION PROVIDED. CONTINENT TO MONITOR FOR HALLUCINATIONS AND PROVIDE ONE ON ONE FOR EMOTIONAL SUPPORT. PATIENT ASSIST WITH ADL'S, IMPROVEMENT NOTED.
[2019-01-17 20:00] VITALS: BP 117/69
--- NOTE | 2019-01-18 01:51 | NUR ---
P: WITHDRAWN TO SELF I: ENCOURAGED PT TO INCREASE INTERACTIONS WITH PEERS AND STAFF. ENCOURAGED MEDICATION COMPLIANCE. EDUCATED ON MEDICATIONS. PROVIDED 1:1 FOR THERAPEUTIC COMMUNICATION. MONITORED PT BEHAVIORS WITH Q15 MINUTE SAFETY CHECKS. R: PT REMAINED WITHDRAWN TO SELF. ONLY SPOKE WHEN SPOKEN TO BY STAFF MEMBER. MEDICATION COMPLAINT WITHOUT DIFFICULTY. VERBALIZED UNDERSTANDING OF MEDICATIONS. PT WOULDNT SPEAK TO THIS NURSE ABOUT HER DAY OR HOW SHE WAS FEELING. P: CONTINUE TO ENCOURAGE MEDICATION COMPLIANCE, INCREASED INTERACTIONS WITH PEERS AND STAFF, PROVIDE 1:1 FOR THERAPEUTIC COMMUNICATION. CONTINUE TO EDUCATE ON CURRENT AND NEW MEDICATIONS. CONTINUE TO MONITOR BEHAVIORS WITH Q15 MINUTE SAFETY CHECKS. SEE [facility] FLOWSHEET FOR SPECIFIC MONITORING.
--- NOTE | 2019-01-18 05:16 | NUR ---
PT SLEPT APPROXIMATELY 7 HOURS THIS SHIFT. Q15 MINUTE SAFETY CHECKS MAINTAINED. SEE [facility] [[email or web address] FLOWSHEET FOR SPECIFIC MONITORING.
[2019-01-18 07:49] VITALS: BP 118/69; BP 130/80
--- NOTE | 2019-01-18 08:03 | NUR ---
PT AWAKE, ALERT, VERBAL AND PLEASANT, EATING BREAKFAST AND INTERACTING WITH PEERS. RESPS EASY AND EVEN ON ROOM AIR. NO DISTRESS NOTED.
--- NOTE | 2019-01-18 08:30 | NUR ---
Treatment Plan meeting with Dr. Baeza, RN, AT, and Grid Molder. Plan for discharge Monday/Monday. Pt. will return to [facility].
--- NOTE | 2019-01-18 11:00 | NUR ---
BRETT CAKE WASHER ON UNIT TO SEE PT AT THIS TIME.
--- NOTE | 2019-01-18 11:48 | NUR ---
AM GROUP/EXERCISE AND ART THERAPY PT WAS LATE TO GROUP AND DID NOT PARTICIPATE IN EXERCISE. PT DID SIT WITH GROUP DURING ART AND SOCIALIZE. PT EXPRESSED NO DELUSIONS DURING GROUP. PT WAS PLEASANT AND ON TOPIC.
--- NOTE | 2019-01-18 13:07 | NUR ---
PRN TYLENOL 650MG PO GIVEN AT THIS TIME PER PT REQUEST FOR C/O HEADACHE, NOT RATED ON PAIN SCALE. WILL MONITOR FOR EFFECTIVENESS OF MEDICATION.
--- NOTE | 2019-01-18 14:04 | NUR ---
Call to [facility]. Left Message for Jaclyn in Admissions to notify of plans to discharge Monday or Monday.
--- NOTE | 2019-01-18 14:56 | NUR ---
Clinical Updates faxed to [facility].
--- NOTE | 2019-01-18 15:34 | NUR ---
PM GROUP PT ATTENDED AND PARTICIPATED IN AFTERNOON GROUP THERAPY BY WATCHING A MOVIE AND SOCIALIZING WITH PEERS. PT EXPRESSED NO PARANOID DELUSIONS DURING GROUP AND WAS FOCUSED AND ON TOPIC.
--- NOTE | 2019-01-18 16:51 | NUR ---
P- STABLE MOOD, APPROPRIATE AFFECT. PT IS CALM, PLEASANT AND COOPERATIVE. NAPS INTERMITTENTLY T/O DAY, EASILY AROUSABLE. TREMORS CONTINUE TO RIGHT UPPER EXTREMITY ALTHOUGH TREMORS HAVE DECRASED IN FREQUENCY AND INTENSITY. I- ORIENTATION, MOOD AND BEHAVIOR ASSESSED. ASSESSED PT FOR SI/HI, INTENT OR PLAN. ASSESSED PT FOR S/S HALLUCINATIONS, PARANOIA AND/OR DELUSIONS. MEDICATIONS ADMINISTERED PER PHYSICIAN'S ORDERS. ASSISTANCE WITH ADL CARE PROVIDED. GRISEL LIFT FOR TRANFERS. ENCOURAGED PT TO ATTEND AND PARTICIPATE IN [employer] [facility] GROUPS AND ACTIVITIES. R- PT IS ALERT AND ORIENTED TO PERSON, APPROXIMATE PLACE AND TIME. RESPS EASY AND EVEN ON ROOM AIR. MOOD IS STABLE, AFFECT APPROPRIATE. SPEECH IS WNL AND COHERENT, ABLE TO MAKE NEEDS KNOWN WITHOUT DIFFICULTY. PT DENIES SI/HI, INTENT OR PLAN. PT DENIES HALLUCINATIONS, NO RESPONSE TO INTERNAL STIMULI NOTED. NO PARANOIA OR DELUSIONS NOTED. PT IS CALM, PLEASANT AND COOPERATIVE. NO AGGRESSIVE BEHAVIORS. NO DISTRESS NOTED. P- PLAN TO CONTINUE CURRENT TREATMENT, CONTINUE TO MONITOR MOOD AND BEHAVIORS, PROVIDE APPROPRIATE REORIENTATION, REDIRECTION AND 1:1 NEEDED. CONTINUE TO ENCOURAGE MEDICATION COMPLIANCE WELL GROUP ATTENDANCE AND PARTICIPATION.
[2019-01-18 18:48] VITALS: BP 110/63
--- NOTE | 2019-01-18 23:44 | NUR ---
A&O TO PERSON, PLACE, AND SITUATION. STABLE MOOD. NO HALLUCINATIONS OR DELUSIONS NOTED. CALM AND INTERACTIVE. MEDICATION COMPLAINT WITHOUT DIFFICULTY. MEDICATION EDUCATION PROVIDED AND PT VERBALIZED UNDERSTANDING. Q15 MINUTE SAFETY CHECKS MAINTAINED. SEE [facility] FLOWSHEET FOR SPECIFIC MONITORING.
--- NOTE | 2019-01-19 05:31 | NUR ---
PT SLEPT APPROXIMATELY 8 HOURS THIS SHIFT. SEE [facility] FLOWSHEET FOR SPECIFIC MONITORING. Q15 MINUTE SAFETY CHECKS MAINTAINED.
[2019-01-19 07:20] VITALS: BP 137/71
--- NOTE | 2019-01-19 08:10 | NUR ---
PT ALERT, PLEASANT, EATING BREAFKAST AT THIS TIME IN THE DINING ROOM. INTERACTIVE. RESPIRATIONS EVEN AND UNLABORED ON ROOM AIR. NO S/S OF DISTRESS NOTED.
--- NOTE | 2019-01-19 10:03 | NUR ---
DR. DE LA CRUZ ON FLOOR TO ASSESS PT, UPDATE PROVIDED.
--- NOTE | 2019-01-19 11:48 | NUR ---
AM GROUP/EXERCISE/MUSIC/COPING SKILLS KELVIN PT ATTENDED AND PARTICIPATED. PT PLEASANT AND ON TASK. PT DID NOT EXPRESS ANY DELUSIONS AT THIS TIME AND WILL CONTINUE TO ATTEND AND PARTICIPATE IN FUTURE GROUP SESSIONS TO BEST OF ABILITY.
--- NOTE | 2019-01-19 12:21 | NUR ---
PT ALERT AND ORIENTED TO PERSON, PLACE, AND SITUATION. MOOD STABLE AND PLEASANT. INTERACTIVE WITH PEERS AND STAFF, LAUGHING AND SMILING. ATTENDING AND PARTICIPATING INTERMITTENTLY IN GROUP THERAPIES. MEDICATION COMPLIANT WITH NO DIFFICULTIES; EDUCATION PROVIDED ON EACH MED. DENIES HALLUCINATIONS, SI/HI, INTENT OR PLAN, OR PAIN. NO S/S OF INTERACTING WITH INTERNAL STIMULI. NO DELUISONAL THOUGHT PROCESS NOTED. EATING AND DRINKING ADEQUATELY. INCONTINENT. ABLE TO VOICE NEEDS. TWO ASSIST WITH CARE/ADLS, GRISEL WITH TRANSFERING; ASSIST WITH CARE/ADLS FREQUENTLY. FREQUENT TURNING WHILE UP IN CHAIR AND IN BED. VITAL SIGNS STABLE. RESPIRATIONS EVEN AND UNLABORED ON ROOM AIR. NO S/S OF DISTRESS NOTED. SEIZURE PRECAUTIONS MAINTAINED DUE TO HISTORY. FALLING STAR PROGRAM MAINTAINED. Q15 MINUTE CHECKS MAINTAINED FOR SAFETY.
--- NOTE | 2019-01-19 14:00 | NUR ---
Shift chart check completed.
--- NOTE | 2019-01-19 14:55 | NUR ---
PM GROUP/MEDITATION/MOVIE PT WENT TO BATHROOM TO NOT RETURN. PT CHOSE TO TAKE AN AFTERNOON NAP.
[2019-01-19 20:00] VITALS: BP 111/70
--- NOTE | 2019-01-20 00:35 | NUR ---
A&O TO PERSON, PLACE, AND SITUATION. STABLE MOOD. NO HALLUCINATIONS OR DELUSIONS NOTED. CALM AND INTERACTIVE. MEDICATION COMPLAINT WITHOUT DIFFICULTY. MEDICATION EDUCATION PROVIDED AND PT VERBALIZED UNDERSTANDING. Q15 MINUTE SAFETY CHECKS MAINTAINED. SEE [facility] FLOWSHEET FOR SPECIFIC MONITORING.
--- NOTE | 2019-01-20 03:45 | NUR ---
24 HR chart check completed.
--- NOTE | 2019-01-20 05:54 | NUR ---
PT SLEPT APPROXIMATELY 7 HOURS THIS SHIFT. Q15 MINUTE SAFETY CHECKS MAINTAINED. SEE [facility] FLOWSHEET FOR SPECIFIC MONITORING.
[2019-01-20 07:52] VITALS: BP 129/70
--- NOTE | 2019-01-20 08:47 | NUR ---
DR. DE LA CRUZ ON UNIT TO ASSESS PATIENT.
--- NOTE | 2019-01-20 09:53 | NUR ---
PATIENT IS ALERT AND ORIENT TO PERSON, TIME AND SITUATION, WITH CONFUSION ON PLACE. MOOD IS STABLE, BRIGHT AFFECT. DENIES ANY HALLUCINATIONS, DELUSIONS, HI/SI OR PAIN. MEDICATION COMPLAINT. INTERACTIVE WITH STAFF. UP IN BARBARA CHAIR FOR COMFORT. 1-2 PERSON ASSIST WITH ACTIVITES OF DAILY LIVING, MIXED CONTINENT WITH BOWEL AND BLADDER. ABLE TO FEED SELF, WITH ASSISTANCE NEEDED. INTAKES ARE GOOD WITH ADEQUATE FLUIDS. PATIENT ASSIST WITH CARE MUCH SHE CAN, IMPROVEMENT NOTED. 2 PERSON WITH TRANSFER USING MECHANICAL LIFT. Q 15 MINUTES SAFETY CHECKS. NO TREMORS NOTED DURING MORNING INTERACTIONS. CONTINUE TO MONITOR FOR HALLUCINATIONS; PROVIDE ONE ON ONE FOR EMOTIONAL SUPPORT NEEDED.
[2019-01-20 19:53] VITALS: BP 127/86
--- NOTE | 2019-01-21 00:42 | NUR ---
PATIENT IS ALEERT AND ORIENTED X3. IS TALKATIVE WITH STAFF AND OTHER PATIENTS BUT ONLY WHEN ADDRESSED FIRST. IS QUIET AND WITHDRAWN OTHERWISE. IS MED COMPLIANT. PROVIDED 1:1 WITH PATIENT FOR EMOTIONAL SUPPORT. PLAN IS TO CONTINUE MED COMPLIANCE AND ENCOURAGE VERBALIZATION OF FEELINGS WITH STAFF. CONTINUE MED COMPLIANCE. SEE [facility] FLOWSHEET FOR FURTHER DOCUMENTATION.
--- NOTE | 2019-01-21 05:38 | NUR ---
PT SLEPT ABOUT 7 HOURS LAST NIGHT.
--- NOTE | 2019-01-21 07:58 | NUR ---
Shift chart check completed.
[2019-01-21 08:00] VITALS: BP 103/66; BP 118/80
--- NOTE | 2019-01-21 09:00 | NUR ---
Treatment Plan meeting with Dr. Baeza, RN, AT, and Legal Assistant. Plan for discharge Today. Pt. to return to [facility]. Call Placed to Patient Bony and Left message concerning discharge and that Patient was requesting that Dr. Baeza Discharge today instead of tommorow. Call Placed to [facility] and spoke with Jaclyn, notified of discharge today. Transportation arranged with [facility] to Transport with pickling machine operator time 12:30 p.m.
--- NOTE | 2019-01-21 09:35 | NUR ---
DR DE LA CRUZ ON UNIT TO ASSESS PT.
--- NOTE | 2019-01-21 11:35 | NUR ---
AM GROUP PT ATTENDED MORNING GROUP THERAPY AND PARTICIPATED BY WATCHING A MOVIE. PT DOZED OFF AND ON THROUGHOUT. PT EXPRESSED NO PARANOID DELUSIONS DURING GROUP.
--- NOTE | 2019-01-21 12:50 | NUR ---
PT OFF UNIT AT THIS TIME WITH SECURITY AND 2 RENTAL BOATS CARETAKER. STABLE MOOD. ALERT TO PERSON, PLACE, AND SITUATION. NO HALLUCINATIONS OR DELUSIONS NOTED. PT CONSUMED 50% OF BREAKFAST AND LUNCH. CALM. INTERACTIVE. PARTICIPATING. MEDICATION COMPLIANT WITHOUT DIFFICULTY. MEDICATION EDUCATION PROVIDED. PT VERBALIZED UNDERSTANDING. PT C/O HEADACHE. PRN TLENOL GIVEN AT 1232. NURSE TO NURSE GIVEN TO RN AT [facility] AT 1243. PT INCONTINENT OF BOWEL AND BLADDER. CONCEPCIÓN CARE PROVIDED. PASSIVE ROM COMPLETED ON LOWER EXTREMITIES. SKIN INTACT. BRUISING REMAINS TO BILATERAL LEGS. SCABS REMAINS TO RIGHT CALF, RIGHT HIP, AND LEFT KNEE. Q15 MINUTE SAFETY CHECKS MAINTAINED. SEE [facility] FLOWSHEET FOR SPECIFIC MONITORING.
--- NOTE | 2019-01-21 14:19 | NUR ---
Discharge Paperwork Faxed to [facility].
--- NOTE | 2019-01-21 14:33 | NUR ---
Pt discharged to [facility] today. Follow-up will be with Dr Baeza, visiting psychiatrist. While at [facility], pt's behaviors improved. Pt was not voicing paranoid delusions. She did engage in conversation with staff and peers when encouraged to do so.
== END 2019-01-21 12:50 | disposition other institution (70) | DRG 885 ==
LOC: 3N 13:30
PROVIDERS: Registered Nurse; ADMIT Psychiatry & Neurology Psychiatry
DX: F33.3 Major depressive disorder, recurrent, severe with psychotic symptoms (principal); E43 Unspecified severe protein-calorie malnutrition; N39.0 Urinary tract infection, site not specified; G35 Multiple sclerosis; N32.81 Overactive bladder; J44.9 Chronic obstructive pulmonary disease, unspecified; F17.200 Nicotine dependence, unspecified, uncomplicated; E78.5 Hyperlipidemia, unspecified; I10 Essential (primary) hypertension; E66.9 Obesity, unspecified; D69.6 Thrombocytopenia, unspecified; Z90.49 Acquired absence of other specified parts of digestive tract; Z98.891 History of uterine scar from previous surgery; Z82.49 Family history of ischemic heart disease and other diseases of the circulatory system; Z79.899 Other long term (current) drug therapy; Z86.73 Personal history of transient ischemic attack (TIA), and cerebral infarction without residual deficits; Z88.2 Allergy status to sulfonamides; Z79.82 Long term (current) use of aspirin

== ENCOUNTER 2019-02-24 11:17 | Inpatient (IN) | payer MEDICARE, MEDICAID ==
[~2019-02-24] VITALS: Ht 162.5 cm; Wt 96.6 kg
--- NOTE | ~2019-02-24 | PR ---
[place], [place] PROGRESS NOTE NAME: LEIGH MADDEN UNIT #: [id number] ROOM: 311 DOCTOR: XAVI ALVAREZ MD BIRTHDATE: [birth year] DOS: 03/05/2019 PSYCHIATRIC PROGRESS NOTE SUBJECTIVE: The patient seen and spoke with the nursing staff. Per staff, the patient is doing better, "back to baseline." Medication compliant, slept well last night. No behavior problems or issues. The patient was pleasant and cooperative. She was in the day area. She reports doing "good." She said that she is sleeping well and her appetite is good. She was not in any acute distress. MENTAL STATUS EXAMINATION: The patient was pleasant and cooperative. She described her mood as "good." Affect was euthymic. Thought process is with confabulation. She denied auditory or visual hallucination. No delusion or paranoia noted. She denied suicidal ideation, intent or plan. She also denied homicidal ideation, intent or plan. PLAN: 1. Continue current medication and care. 2. Continue redirection. 3. Supportive care. 4. Discharge planning. XAVI ALVAREZ MD CM:PNTRANS [phone] XAVI ALVAREZ MD 03/06/198 interface
--- NOTE | ~2019-02-24 | PR ---
[place], [place] PROGRESS NOTE NAME: LEIGH MADDEN UNIT #: [id number] ROOM: 311 DOCTOR: AXVI ALVAREZ MD BIRTHDATE: [birth year] DOS: 03/04/2019 PSYCHIATRIC PROGRESS NOTE SUBJECTIVE: The patient seen and spoke with the nursing staff. Per staff, the patient slept well and continued to have auditory hallucination, but denied when asked. She is taking her medication. No problems or issues. The patient was pleasant and cooperative. She reports doing better. She denied any auditory or visual hallucination. She said the medication is helping her. No other psychotic symptoms noted. She denied depressed mood or hopelessness. She vehemently denied any thoughts of harming herself or anyone else. PLAN: 1. Continue current medication and care. 2. Continue redirection. 3. Supportive care. XAVI ALVAREZ MD CM:PNTRANS [id number] XAVI ALVAREZ MD 03/05/19 0156 interface
--- NOTE | ~2019-02-24 | PR ---
[place], [place] PROGRESS NOTE NAME: LEIGH MADDEN UNIT #: [id number] ROOM: 311 DOCTOR: XAVI ALVAREZ MD BIRTHDATE: [birth year] DOS: 02/28/2019 PSYCHIATRIC PROGRESS NOTE SUBJECTIVE: The patient seen and spoke with nursing staff. Per staff, the patient is doing well. No behavioral problems or issues. Took her medication, but she only slept 3 hours. The patient was pleasant and cooperative. She was in the day area. She said that the voices are gone. Acknowledges that she did not sleep well. She is taking all of her medication regularly. Denied any side effect. MENTAL STATUS EXAMINATION: The patient was pleasant and cooperative. Described her mood as "okay." Affect euthymic. She denied auditory or visual hallucination. No delusion or paranoia noted. She denied suicidal ideation, intent or plan. She also denied homicidal ideation, intent or plan. PLAN: 1. Start her on trazodone 50 mg at night. 2. Continue other medications. 3. Continue redirection. 4. Supportive care. 5. Encourage activities in groups. XAVI ALVAREZ MD CM:PNTAMI [phone] [id number] XAVI ALVAREZ MD 03/01/19 0112 interface
--- NOTE | ~2019-02-24 | PR ---
[place], [place] PROGRESS NOTE NAME: LEIGH MADDEN UNIT #: [id number] ROOM: 311 DOCTOR: GERALD ARIZMENDI CNP BIRTHDATE: [birth year] DOS: 03/03/2019 CHIEF COMPLAINT: "I am doing good." SUMMARY OF THE VISIT: The patient was interviewed as she sat in the dining room in a wheelchair, eating her breakfast. The patient reports that she slept well and that her appetite is good. She reports that she feels happy. Staff reports that the patient has been more alert. She was noted to have hallucinations once yesterday; however, nothing so far today. The patient has been compliant with medications. She did sleep well last night. No behaviors noted by staff. The patient does appear to be more alert and is participating more in her activities of daily living. MENTAL STATUS EXAMINATION: The patient is alert and oriented to person and self. She was pleasant and cooperative with me. No baron or hypomania noted. No delusions or paranoia noted. No psychotic symptoms noted. No auditory or visual hallucinations noted. The patient's mood was calm. Her affect is congruent with mood. No agitation or aggression noted. PLAN: The patient's ammonia level this morning was 16. She has been compliant with medications and appears to be tolerating them without any side effects. They appear to be effective. Plan is to discharge the patient Monday. In the meantime, continue to encourage the patient to engage in individual and herbert milieu activity. Continue fall and safety precautions. Plan is to return the patient to the least restrictive environment once considered psychiatrically stable. Gerald Arizmendi CNP CM:PNTRANS GERALD ARIZMENDI CNP 03/03/1954 interface
--- NOTE | ~2019-02-24 | WRIGHTHP ---
[place], [place] PATIENT HISTORY AND PHYSICAL EXAM NAME: LEIGH MADDEN UNIT #: [id number] ROOM: 311 DOCTOR: BERTHA BETANCOURT MD BIRTHDATE: [birth year] DOS: 02/25/2019 INITIAL PSYCHIATRIC EVALUATION CHIEF COMPLAINT: "I feel okay now, thanks for asking." HISTORY OF PRESENT ILLNESS: This is a 68-year-old white female who is a resident of [facility]. The patient has a lengthy history of bipolar disorder with psychotic features. Most recently, she was making comments at the [facility] that she wanted to commit suicide and no longer wish to live. Additionally, she was responding to internal stimuli, hearing voices telling her to hurt herself. The patient is admitted now to rule out lethality, to stabilize on medication, returning then to [place]. PAST MEDICAL HISTORY: Remarkable for a long history of bipolar disorder, history of COPD, CVA, falls, hyperlipidemia, hypertension, multiple sclerosis, overactive bladder, spinal cord infarction, and thrombocytopenia. SOCIAL HISTORY: The patient is a smoker. She does not use illicit drugs nor does she drink alcohol. ALLERGIES: She lists allergies to SULFACET. STRENGTHS: Good verbal skills, supportive living environment. WEAKNESSES: Chronic mental health issues, poor coping skills. MENTAL STATUS: She is alert and oriented with time gaps. Mood is overwhelmingly depressed with the presence of neurovegetative symptoms. She also endorses significant auditory hallucinations. There is no baron present at this time. Memory does have mild gaps, but for the most part is intact. DIAGNOSIS: Bipolar type 1, depressed. PLAN: I have maintained her Remeron 15 mg at bedtime, added Abilify 10 mg at bedtime, which I will now increase to 15 mg at bedtime to augment the effectiveness of the antidepressant and also to combat psychotic symptoms. I will check a Lamictal level in the a.m. to ensure that it is therapeutic. Her vitamin D level is low at 29.5. I will increase her vitamin D from 1000 IUs daily to 5000 IUs daily. We will engage in individual and herbert milieu activity, returning to the least restrictive environment when psychiatrically stable. [place], [place] PATIENT HISTORY AND PHYSICAL EXAM NAME: LEIGH MADDEN UNIT #: [id number] ROOM: [facility] DOCTOR: BERTHA BETANCOURT MD BIRTHDATE: [birth year] BERTHA BETANCOURT MD CM:HISPHYS:PATIENT HISTORY AND PHYSICAL EXAMINATION 6 9 BERTHA BETACNOURT MD 02/25/19 0939 interface
--- NOTE | ~2019-02-24 | PR ---
[place], [place] PROGRESS NOTE NAME: LEIGH MADDEN UNIT #: [id number] ROOM: 311 DOCTOR: GERALD ARIZMENDI CNP BIRTHDATE: [birth year] DOS: 03/02/2019 CHIEF COMPLAINT: "Who are you honey." SUMMARY OF VISIT: The patient was interviewed as she sat in the dining room, eating her breakfast. Staff reports that the patient did sleep well last night. They did notice some visual hallucinations. The patient denies any auditory or visual hallucinations. She has been taking her medications as prescribed. No overt behaviors noted. MENTAL STATUS EXAMINATION: The patient is alert and oriented to person and self. She was pleasant and cooperative with me. No baron or hypomania noted. No delusions or paranoia noted. No psychotic symptoms noted. No auditory or visual hallucinations noted at this time. The patient's mood was calm. Her affect was congruent with mood. PLAN: We will increase the patient's Abilify to 25 mg at bedtime since she has been exhibiting hallucinations that have been noted by the staff. Hopefully, the increase in the Abilify will cause these symptoms to diminish. We will monitor the patient for side effects. We will continue to monitor for effectiveness of medication. Continue to encourage the patient to engage in individual and herbert milieu activity. Continue fall and safety precautions. Plan is to return the patient to the least restrictive environment when she is considered psychiatrically stable. Gerald Arizmendi CNP CM:PNTRANS [id number] GERALD ARIZMENDI CNP 03/02/19 1243 interface
--- NOTE | ~2019-02-24 | PR ---
[place], [place] [facility]GR[id number] #: [id number] ROOM: 311 DOCTOR: XAVI ALVAREZ MD BIRTHDATE: [birth year] DOS: 02/25/2019 PSYCHIATRIC PROGRESS NOTE HISTORY OF PRESENT ILLNESS: The patient seen and I spoke with staff. Per staff, the patient is doing better, but is still internally stimulated. She is taking her medication. No behavioral problems or issues. Easily redirectable. The patient was pleasant and cooperative. She was in the day area. She was watching TV. She reports doing "good." She reported good sleep and appetite. She said that the medication is helping her. She acknowledges auditory hallucination, but mentioned that they are not command type. She did not express any other problems or concerns. MENTAL STATUS EXAMINATION: The patient was pleasant and cooperative. She described her mood as "better." Affect was euthymic. Thought process goal directed. No flight of ideas, loosening of association. She reports auditory hallucinations, not command type. Denied visual hallucination or any other psychotic symptoms. She denies suicidal ideation, intent or plan. She also denied homicidal ideation, intent or plan. PLAN: 1. Continue current medication. 2. Continue redirection. 3. Supportive care. 4. Encourage activities in groups. XAVI ALVAREZ MD CM:PNTRANS 22 04 XAVI ALVAREZ MD 02/26/192203 interface
--- NOTE | ~2019-02-24 | PR ---
[place], [place] PROGRESS NOTE NAME: LEIGH MADDEN UNIT #: [id number] ROOM: 311 DOCTOR: XAVI ALVAREZ MD BIRTHDATE: [birth year] DOS: 02/27/2019 SUBJECTIVE: The patient seen and spoke with nursing staff. Per staff, the patient is taking her medication regularly. No p.r.n. No behavioral problems or issues. Per nursing, the patient wanted to go home. The patient was pleasant and cooperative. She was in the dining area. She told me that she wants to go home. She said that her mood is good. She acknowledges that she still hear some voices, but says "they are okay." She is taking her medication regularly and denied any side effect. MENTAL STATUS EXAMINATION: The patient was pleasant, verbal, cooperative. Described her mood as "good." Affect was euthymic. Thought process goal directed. No flight of ideas, loosening of association. She reports auditory hallucination, denied any visual hallucination. No other overt delusion or paranoia noted. She denied suicidal ideation, intent or plan. She also denied homicidal ideation, intent or plan. PLAN: 1. Continue current medications and care. 2. Continue redirection. 3. Supportive care. XAVI ALVAREZ MD CM:PNTRANS 1831 XAVI ALVAREZ MD 02/28/194 interface
--- NOTE | ~2019-02-24 | PR ---
[place], [place] PROGRESS NOTE NAME: LEIGH MADDEN UNIT #: [id number] ROOM: 311 DOCTOR: XAVI ALVAREZ MD BIRTHDATE: [birth year] DOS: 03/01/2019 PSYCHIATRIC PROGRESS NOTE SUBJECTIVE: The patient seen and spoke with the staff. Per staff, the patient has been denying any auditory or visual hallucination, but per family, she was hearing voices. She also demanded to go home when her came to see her. She slept well last night with trazodone. The patient was in the dining area in a chair. She reports doing well. She kept on focusing on going home. She tried to minimize the auditory hallucination situation, but seems like she was responding to stimuli. She is taking her medication regularly and did not have any side effect from the medication. MENTAL STATUS EXAMINATION: The patient was pleasant and cooperative. She described her mood as "fine." Affect was somewhat constricted. Thought process goal directed. No flight of ideas, loosening of association. She denied auditory hallucination, but seems responding to stimuli. Denied any visual hallucination. No delusion or paranoia noted. She denied suicidal ideation, intent or plan. She also denied homicidal ideation, intent or plan. PLAN: 1. Continue current medication and care. 2. Continue redirection and supportive care. 3. Encourage activity and groups. XAVI ALVAREZ MD CM:PNTRANS [phone] XAVI ALVAREZ MD 03/02/194 interface
[~2019-02-24 11:17] MED LIST: 'CLONIDINE0.1 MG PO; ASPIRIN81 M1 PO; BACLOFEN20 M1 PO; BENZTROPINE ME0.5 MG PO; CLARITIN10 MG PO; DEPAKOTE SPRIN125 MG PO; DOCUSATE SODIU100 M2 PO; LAMOTRIGINE100 MG PO; LOSARTAN POTAS100 M1 PO; MYRBETRIQ25 M1 PO; NORVASC5 MG PO; NYSTOP60 GM T; OMEGA 3 1,0001 EACH PO; RISPERDAL2 M1 PO; VISTARIL50 MG PO; VITAMIN D31000 UNIT PO; ZETIA10 MG PO
[2019-02-24] MEDS ORDERED: REMERON15 M2 PO (11:23)
--- NOTE | 2019-02-24 13:45 | NUR ---
SPOKE WITH DR. LOAIZA AT [phone] RE: PT ADMISSIONA AND BP READINGS. PER DR. LOAIZA PLACE CONSULT UNDER DR. LOAIZA.
[2019-02-24 13:48] VITALS: BP 200/118
[2019-02-24 13:49] VITALS: BP 200/18
--- NOTE | 2019-02-24 14:00 | NUR ---
DR TINSLEY CALLED AND ADVISED TO GIVE PT COZAAR 100 MG NOW AND RECEHCK BP IN 1 HOUR. NO FURTHER ORDERS AT THIS TIME.
--- NOTE | 2019-02-24 14:34 | NUR ---
LEIGH MADDEN a 68 year old F admitted via stretcher from [facility] as a emergency 72 hr. hold admission. Arrived on unit at 1327 . ALLERGIES: SULFA . Vital signs are: 97.3-72-19 200/118. The client DID NOT SIGN the following forms with stated understanding: Authorization For The Release of Medical Information, Clothing List, Consent to Voluntary Admission and Hospitalization, Consent and Release Forms/Receipt of Rights, Acknowledgement of Advance Directive Information, Behavioral Health Consent Form, and Informed Consent of Medications. Admitted under the services of Dr. ASIA GRAY,[facility]. A search was conducted and hazardous articles were PT PINK SLIPPED TO UNIT. PT REFUSED TO PARTICIPATE IN U ADMISSION, SUICIDE RISK SCREEN AND GERIATRIC DEPRESSION SCREEN. removed. Client was oriented to the unit. KEIRA FOUNTAIN
[2019-02-24 15:24] VITALS: BP 170/108
--- NOTE | 2019-02-24 17:31 | NUR ---
PT ALERT TO PERSON, PLACE(KNOWS SHE IS IN THE HOSPITAL) AND TIME. PT CLAM. PT OBSERVED TO BE RESPONDING TO UNSEEN OTHERS THROUGHOUT THE SHIFT. NO SUICIDAL THOUGHTS OR BEHAVIORS NOTED THIS SHIFT. PT CONTINUES TO REFUSE SKIN ASSESSMENT. PT UP TO GERICHAIR D/T INABILITY TO BEAR WEIGHT, REQUIRES A GRISEL LIFT FOR TRANSFERS. PT INCONTINENT OF BOWEL AND BLADDER, CARE PROVIDED NEEDED. PLAN IS TO PRESENT REALITY, PROVIDE EMOTIONAL SUPPORT AND 1:1 FOR PT TO VOICE FEELINGS, ENCOURAGE MED COMPLIANCE, MONITOR PT BEHAVIORS ON Q15 MIN SAFETY CHECKS.
[2019-02-24 19:49] VITALS: BP 138/97
--- NOTE | 2019-02-24 22:45 | NUR ---
Patient alert to person,place,and time. No signs of any SI/HI at this time. Patient seen several times talking to unseen others. Patient compliant with medications without any difficulty. Attempted to provide 1:1 with patient for emotional support but continues to talk to unseen others. Plan to continue to encourage medication compliance and to continue to provide 1:1 for emotional support. Q 15 minute safety checks continued and maintained. See [facility] flowsheet for further documentation.
--- NOTE | 2019-02-24 23:34 | NUR ---
Patient had call light on. Staff entered room. Patient verbally threatening to staff saying " you will turn me and change me or I will turn you in ". Staff x2 with all interactions with patient at all times due to past accusatory behaviors.
--- NOTE | 2019-02-25 00:22 | NUR ---
24 HR chart check completed.
--- NOTE | 2019-02-25 05:22 | NUR ---
Patient slept approx. 7 hours throughout shift with a few awakenings. Q 15 minute safety checks continued and maintained.
[2019-02-25 07:04] LABS: BASO % 0.6 % (0.0-1.0); EOS # 0.1 10*3/uL (0.0-0.4); EOS % 2.3 % (1.0-4.0); HEMATOCRIT 44.1 % (37.0-47.0); HEMOGLOBIN 14.1 g/dl (12.0-16.0); LYMPH # 1.9 10*3/uL (1.3-4.4); LYMPH % 36.7 % (27.0-41.0); MEAN CELL VOLUME 95.2 fl (81.0-99.0); MEAN CORPUSCULAR HGB 30.5 pg (27.0-31.0); MEAN PLATELET VOLUME 12.4 fl (9.6-12.3); MONO # 0.6 10*3/uL (0.1-1.0); NEUT # 2.5 10*3/uL (2.3-7.9); NEUT % 48.2 % (47.0-73.0); PLATELET COUNT AUTOMATED 158 10*3/uL (130-400); RED BLOOD COUNT 4.63 10*6/uL (4.10-5.10); RED CELL DISTRI WIDTH 15.1 % (0-14.5); WHITE BLOOD COUNT 5.2 10*3/uL (4.8-10.8)
[2019-02-25 07:29] LABS: ALBUMIN 3.2 gm/dl (3.1-4.5); ALKALINE PHOSPHATASE 115 U/L (45-117); BUN 18 mg/dl (7-24); CHLORIDE 107 mmol/L (98-107); CHOLESTEROL 192 mg/dL (<200); CREATININE 0.87 mg/dL (0.55-1.02); HDL CHOLESTEROL 56 mg/dl (40-60); LDL CHOLESTEROL 117 mg/dL (9-159); POTASSIUM 3.8 mmol/L (3.5-5.1); SGOT/AST 15 IU/L (3-35); SGPT/ALT 19 U/L (12-78); SODIUM 140 mmol/L (136-145); TOTAL PROTEIN 6.5 gm/dL (6.4-8.2); TRIGLYCERIDES 93 mg/dl (<150); VLDL CHOLESTEROL 19 mg/dL (6-40)
[2019-02-25 07:36] VITALS: BP 109/82
[2019-02-25 07:50] LABS: VITAMIN D, 25-HYDROXY 29.5 ng/mL (30-100)
--- NOTE | 2019-02-25 08:00 | NUR ---
Treatment Plan meeting with Dr. Baeza, RN, AT, SW and [employer]. Plan for discharge Next week. Pt. Came to [facility] from [facility]. Will reach out to facility to discuss discharge Planning.
--- NOTE | 2019-02-25 08:34 | NUR ---
DR. LOAIZA CALLED FOR UPDATE ON PT BP, ADVISED OF BP READING 109/82, ADSVISED THAT PER NURSING JUDGEMENT WE WERE HOLDING BP MED THIS AM, AND PT IS ASYMPTOMATIC. [facility].
--- NOTE | 2019-02-25 09:44 | NUR ---
DR. LOAIZA ON UNIT TO ASSESS PT, UPDATE PROVIDED.
--- NOTE | 2019-02-25 11:30 | NUR ---
Spoke with Jaclyn Radiologist at [facility]. Pt. is Short Term at facility and family is undecided on Long-Term Placement at this time. Advised Jaclyn of Plans to discharge Next week. Clinical Updates faxed to facility .
--- NOTE | 2019-02-25 11:58 | NUR ---
AM GROUP PT WAS PRESENT FOR MORNING GROUP THERAPY RECLINED IN A BARBARA CHAIR SLEEPING. PT DID NOT AWAKE DURING GROUP
--- NOTE | 2019-02-25 12:26 | NUR ---
P- PT EXPERIENCING AUDITORY/VISUAL HALLUCINATIONS, STAFF OBSERVED PT TALKING TO UNSEEN OTHERS, EYE DOMINIC NOTED I- PRESENT REALITY, PROVIDE RE-ORIENTATION R- PT ALERT TO PERSON, KNOWS SHE IS IN THE HOSPITAL, AND TIME. CONFUSION AND SHORT TERM MEMORY DEFICITS NOTED AT TIMES. RE-ORIENTATION AND PRESENTATION OF REALTIY INEFFECTIVE, PT CONTINUES TO RESPOND TO UNSEEN OTHERS. PT MED COMPLIANT WITHOUT DIFFICULTY. PT UP TO A GERICHAIR, REQUIRES A GRISEL LIFT FOR TRANSFERS DUE TO INABILITY TO BEAR WEIGHT. PT INCONTINENT OF BOWEL AND BLADDER. P- MONITOR PT BEHAVIORS ON Q15 MIN SAFETY CHECKS, ENCOURAGE MED COMPLIANCE, PROVIDE EMOTIONAL SUPPORT AND 1:1 FOR PT TO VOICE FEELINGS, CONTINUE TO PRESENT REALITY AND PROVIDE RE-ORIENTATION.
--- NOTE | 2019-02-25 15:47 | NUR ---
PM GROUP/ART AND MUSIC PT ATTENDED AFTERNOON GROUP AND PARTICIPATED BY COLORING AND LISTENING TO MUSIC. PT EXPRESSED NO A.V. HALLUCINATIONS OR AGITATION DURING GROUP.
[2019-02-25 16:41] VITALS: BP 125/65
--- NOTE | 2019-02-25 20:36 | NUR ---
EVENING/MUSIC/BIRDHOUSES PT ATTENDED AND PARTICIPATED IN ALL GROUP ACTIVITY'S. PT PLEASANT AND ON TASK WITH NO A.V. HALLUCINATIONS OR AGITATION EXPRESSED. PT WILL CONTINUE TO BE ENCOURAGED TO ATTEND AN DPARTICIPATE IN FUTURE GROUP SESSIONS.
--- NOTE | 2019-02-25 20:45 | NUR ---
P-CONFUSION--AGGRESSIVE I--REORIENT TO PLACE AND TIME. DISCUSSED MEDICATIONS PRIOR TO GIVING THEM TO HER. STATES SHE HAD A GOOD DAY. STARTED LAUGHING WHEN ASKED WHERE SHE WAS AND DATE. EMOTIONAL SUPPORT PROVIDED R--IT WAS OK TODAY. I AM TIRED. MEDICATION COMPLIANT. MOVING AROUND IN CHAIR P--MONITOR FOR CHANGES IN BEHAVIOR/MOOD. EMOTIONAL SUPPORT.
--- NOTE | 2019-02-25 21:13 | NUR ---
TYLENOL GIVEN FOR C/O 01/30 HEADACHE. CLIENT REQUESTING NICOTINE PATCH WILL CHECK INTO CLIENTS CHART NO NOTES OF SMOKING FOUND
--- NOTE | 2019-02-25 21:21 | NUR ---
TALKED TO DR BAHENA. ADALGISA CRENSHAW. [place]STATIN ORDERED.
--- NOTE | 2019-02-25 21:33 | NUR ---
CLIENT IS A SMOKER. SMOKING INTERVENTION COMPLETED. WILL PASS ON TO GET ORDERED
--- NOTE | 2019-02-26 05:15 | NUR ---
24 HR chart check completed.
--- NOTE | 2019-02-26 05:27 | NUR ---
SLEPT PAST 2315PM. SLEEP INTERUPTED. APPROX 6.5 HOURS
--- NOTE | 2019-02-26 08:00 | NUR ---
Treatment Plan meeting with Dr. Toscano, RN, AT, SW and [employer] Diagnostic Support Specialist. Plan for discharge next week. Pt. will return to [facility].
[2019-02-26 08:05] VITALS: BP 101/65
--- NOTE | 2019-02-26 12:03 | NUR ---
AM GROUP/HORSESLEWISES PT WAS PRESENT FOR MORNING GROUP THERAPY AND PARTICIPATED BY OBSERVING THE GAME AND HELPING TO KEEP SCORE. PT WAS ENGAGED AND ALERT. PT EXPRESSED NO A.V. HALLUCINATIONS DURING GROUP
--- NOTE | 2019-02-26 13:27 | NUR ---
P: PT OBSERVED TO BE TALKING TO UNSEEN OTHERS, EYE DARTING NOTED. I: ENCOURAGE PT TO VOICE HALLUCINATIONS AND PRESENT REALTIY, PROVIDED EMOTIONAL SUPPORT AND 1:l FOR PT TO VOICE FEELINGS, PROVIDE MED EDUCATION R: PT UNRECEPTIVE TO PRESENTATION OF REALITY, WILL NOT ELABORTAE ON WHAT SHE IS HEARING OR SEEING. PT IS ALERT TO PERSON, KNOWS SHE IS IN THE HOSPITAL, AND TIME. PT MED COMPLIANT WITHOUT DIFFICULTY, PT CAN BE DEMANDING AT TIMES. PT UP TO A GERICHAIR REQUIRES A GRISEL LIFT FOR TRANSFERS. PT CONTINENT OF BOWEL AND BLADDER, EPISODES OF INCONTINENCE NOTED, CARE PROVIDED NEEDED. P: MONITOR PT BEHAVIORS ON Q15 MIN SAFETY CHECKS, ENCOURAGE MED COMPLIANCE, PROVIDE EMOTIONAL SUPPORT AND 1:1 FOR PT TO VOICE FEELINGS, ENCOURAGE PT TO VOICE HALLUCINATIONS TO STAFF AND PRESENT REALITY
--- NOTE | 2019-02-26 13:56 | NUR ---
PHYSICAL THERAPY Physical therapy evaluation attempted. Patient is in a Group Session at this time. Will try again at a later date. Thank you. Marianna Florez,PT,DPT.
--- NOTE | 2019-02-26 14:10 | NUR ---
Patient not available as she is in group session. Winter Carias OTR/l
--- NOTE | 2019-02-26 15:40 | NUR ---
PM GROUP/LEISURE INTERESTS PT ATTENDED AFTERNOON GROUP THERAPY AND PARTICIPATED BY COLORING WITH COLORED PENCILS. PT EXPRESSED NO A. V. HALLUCINATIONS DURING GROUP. PT ENGAGED IN APPROPRIATE CONVERSATION WITH PEERS AND STAFF. PT WILL CONTINUE TO ATTEND AND PARTICIPATE IN GROUP THERAPY
--- NOTE | 2019-02-26 15:44 | NUR ---
Brief family meeting with pt's Bony. Bony spoke of pt's behaviors since her last [facility] stay. He also stated that he now realizes that he can no longer care for pt at home and is working with [facility] to transition pt to LTC.
--- NOTE | 2019-02-26 18:15 | NUR ---
PT C/O HEADACHE 01/30. PT MEDICATED WITH TYLENOL 650 MG PO PRN PER ORDERS.
[2019-02-26 20:00] VITALS: BP 113/57
--- NOTE | 2019-02-26 21:00 | NUR ---
TYLENOL GIVEN EARLIER EFFECTIVE
--- NOTE | 2019-02-26 21:36 | NUR ---
P---AGGITATION/CONFUSION I--DISCUSSED CURRENT EVENING MEDICATIONS. ASKED IF NICOTINE HELPED. DISCUSSED TODAYS EVENTS. OFFERED EMOTIONAL SUPPORT. ORIENTED TO SELF AND DATE R--THE NICOTINE PATCH REALLY HELPED. I HAD A GOOD DAY. NOTHING EXCITING. DENIES ANY ISSUES AT THIS TIME. STATE FEELS GOOD. MEDICATION COMPLIANT P-MONITOR FOR SAFETY Q 15 MINS AND PRN. MONITOR FOR BEHAVIOR AND MOOD CHANGES. EMOTIONAL SUPPORT PROVIDED.
--- NOTE | 2019-02-26 21:45 | NUR ---
CURRENTLY LAYING QUIET IN BED
--- NOTE | 2019-02-27 03:21 | NUR ---
PT AWAKE AND ANGRY. CALLED TO ROOM. MENTAL HEALTH WORKERS IN PROGRESS OF CHANGING CLIENT DEPENDS. CLIENT STATES SHE WANTS TO GO HOME NOW BECAUSE SHE WAS BROUGHT HERE AGAINST HER WILL. REDIRECTED THAT SHE HAS BEEN HERE SINCE THE FOURTH TO GET HER MEDICATIONS ADJUSTED. SHE DEMANDED A PHONE NOW OR SHE WOULD CALL THE TIMEKEEPING SUPERVISOR DOWN ON MY HEAD. SHE THEN REFUSED TO SPEAK OR ANSWER ANY QUESTIONS. INFORMED HER THE DOCTOR WOULD BE HERE THIS MORNING AND SHE CAN DISCUSS HER ISSUES WITH HIM. WILL CONTINUE TO MONITOR
--- NOTE | 2019-02-27 05:31 | NUR ---
24 HR chart check completed.
--- NOTE | 2019-02-27 05:57 | NUR ---
SLEPT WELL PAST 2215PM TILL 3AM. SLEPT INTERMITTENTLY 5 HOURS. NUMEROUS AWAKINGS AFTER 3AM WANTING TO GET UP. REDIRECTED TO TIME AND EMOTIONAL SUPPORT GIVEN
--- NOTE | 2019-02-27 07:58 | NUR ---
PT AWAKE, ALERT. VERBAL AND PLEASANT. FEEDING SELF BREAKFAST AT THIS TIME. RESPS EASY AND EVEN ON ROOM AIR. NO DISTRESS NOTED.
[2019-02-27 08:10] VITALS: BP 142/84
--- NOTE | 2019-02-27 09:18 | NUR ---
PHYSICAL THERAPY Physical therapy screen complete. Patient requires chronic Wilmre lift for increased safety with transfers. Recommend daily LE ROM with nursing and discharge to LTC facility. Thank you. aMrianna Florez,PT,DPT.
--- NOTE | 2019-02-27 09:31 | NUR ---
Occupational Therapy evaluation completed on 3 with full eval to follow. Precautions include fall risk,,earl lift, tremors BUE, impaired cognition, high complexity level 53958 via chart review, testing and evalaution.Patient admits to using weighted utensils and w/c at LTC facility as well as ambulating with LLE AFO brace ( where pT has been earl lift for since last admission to [facility]). Her memory and insight are impaired. Recommend no further OT at this time, earl for transfers and return to LTC upon d/c at prior level of function. Winter Carias OTR/L
--- NOTE | 2019-02-27 10:06 | NUR ---
AND TEAM ON UNIT TO SEE PT AT THIS TIME.
--- NOTE | 2019-02-27 10:30 | NUR ---
Discharge Plan per Dr. Toscnao this a.m. is for Monday with Return to [facility].
--- NOTE | 2019-02-27 10:39 | NUR ---
ON UNIT TO SEE PT AT THIS TIME, UPDATE GIVEN.
--- NOTE | 2019-02-27 11:42 | NUR ---
AM GROUP/EXERCISE AND PARACHUTE PT ATTENDED MORNING GROUP THERAPY AND PARTICIPATED BY OBSERVING AND LAUGHING. PT WAS FOCUSED ON "GETTING OUT OF HERE" AND REPEATEDLY ASKED, "WHERE IS THE DOCTOR? HE NEEDS TO SIGN MY PAPERS SO I CAN GO HOME TODAY!" PT EXPRESSED NO A.V. HALLUCINATIONS DURING GROUP
--- NOTE | 2019-02-27 14:10 | NUR ---
PRN TYLENOL 650MG PO GIVEN AT THIS TIME PER PT REQUEST FOR C/O HEADACHE NOT RATED ON PAIN SCALE. WILL MONITOR FOR MEDICATION EFFECTIVENESS.
--- NOTE | 2019-02-27 14:59 | NUR ---
Met with pt this AM to discuss her admission status. Educated pt about signing in voluntary vs the probate process through the court, as Dr Toscano voiced that this process was to begin for pt. Answered all of pt's questions. Per pt's request, attempted to reach her by phone but was unable to do so. Pt then decided that she would sign the voluntary admission form. Pt was pleasant with this check writer salesperson throughout this process. No inappropriate behavior nor voiced delusions/hallucinations were noted in pt during interaction. When asked by this check writer salesperson, pt denies suicidal ideations.
--- NOTE | 2019-02-27 15:30 | NUR ---
TYLENOL EFFECTIVE. PT VOICES NO FURTHER COMPLAINTS OF HEADACHE PAIN AT THIS TIME.
--- NOTE | 2019-02-27 15:47 | NUR ---
PM GROUP/LEISURE INTERESTS PT ATTENDED GROUP AND PARTICIPATED BY FINISHING HER BIRDHOUSE. PT WAS SOCIABLE AND PLEASANT. PT EXPRESSED NO A.V. HALLUCINATIONS DURING GROUP.
--- NOTE | 2019-02-27 16:38 | NUR ---
P- MILDLY CONFUSED, ST MEMORY GAPS. MOOD APPEARS STABLE. AFFECT APPROPRIATE. PT DENIES SI/HI, INTENT OR PLAN. PT DENIES HALLUCINATIONS. PT DENIES EVER HAVING HALLUCINATIONS TELLING HER TO HARM HERSELF. I- ORIENTATION, MOOD AND BEHAVIOR ASSESSED. ASSESSED PT FOR SI/HI, INTENT OR PLAN. ASSESSED PT FOR S/S HALLUCINATIONS, PARANOIA AND/OR DELUSIONS. MEDICATIONS ADMINISTERED PER PHYSICIAN'S ORDERS. ASSISTANCE WITH ADL CARE PROVIDED NEEDED. ENCOURAGED PT TO ATTEND AND PARTICIPATE IN [employer] [facility] GROUPS AND ACTIVITIES. R- PT IS ALERT AND ORIENTED TO PERSON, STATES SHE IS IN THE HOSPITAL, UNABLE TO STATE WHICH ONE. ORIENTED TO YEAR. APPEARS CONFUSED TO SITUATION. PT DENIES EVER CLAIMING SHE WISHED TO HARM HERSELF OR REPORTING THAT SHE WAS HEARING VOICES TELLING HER TO HARM HERSELF. MOOD APPEARS STABLE WITH APPROPRIATE AFFECT. PT SMILING AND INTERACTING APPROPRIATELY WITH THIS RN, OTHER STAFF AND PEERS. PT DENIES SI/HI, INTENT OR PLAN. PT DENIES HALLUCINATIONS, NO RESPONSE TO INTERNAL STIMULI NOTED. NO PARANOIA OR DELUSIONS NOTED. PT IS MEDICATION COMPLIANT WITHOUT DIFFICULTY. COMPLIANT WITH HANDS ON CARE, NO AGGRESSIVE BEHAVIORS NOTED. NO DISTRESS NOTED. PT ATTENDS AND PARTICIPATES IN GROUPS AND ACTIVITIES. P- PLAN TO CONTINUE CURRENT TREATMENT, CONTINUE TO MONITOR MOOD AND BEHAVIORS, PROVIDE APPROPRIATE REORIENTATION, REDIRECTION AND 1:1 NEEDED. CONTINUE TO ENCOURAGE MEDICATION COMPLIANCE WELL GROUP ATTENDANCE AND PARTICIPATION.
--- NOTE | 2019-02-27 18:13 | NUR ---
SHIFT CHART CHECK COMPLETED.
[2019-02-27 19:17] VITALS: BP 124/76
--- NOTE | 2019-02-27 21:20 | NUR ---
NO ADVERSE MOOD OR BEHAVIORS NOTED THIS SHIFT. PT ALERT TO PERSON AND TIME, UNSURE OF PLACE. REORIENTATION EFFECTIVE. MOOD STABLE, PLEASANT, INTERACTIVE. DENIES HALLUCINATIONS; NO S/S OF INTERACTING WITH INTERNAL STIMULI. NO DELUSIONAL THOUGHT PROCESS NOTED. DENIES SI/HI, INTENT OR PLAN, OR PAIN. NO S/S OF DISTRESS NOTED. RESPS EVEN AND UNLABORED ON ROOM AIR. ATE HS SNACK, DRANK ADEQUATELY. MEDICATION COMPLIANT. PT STATED "I AM JUST READY TO GET OUT OF HERE, I SHOULDNT HAVE BEEN HERE IN THE FIRST PLACE". PT IS A GRISEL, 2 ASSIST WITH TRANSFERING/ADLS/CARE/REPOSITION FOR COMFORT AND FREQUENTLY. PT ABLE TO SHIFT WEIGHT FOR COMFORT, ENCOURAGED TO DO SO. ABLE TO VOICE NEEDS. FALLING STAR PROGRAM IN PLACE. Q15 MINUTE CHECKS MAINTAINED FOR SAFETY.
--- NOTE | 2019-02-27 22:32 | NUR ---
24 HR chart check completed.
--- NOTE | 2019-02-28 06:04 | NUR ---
PT MONITORED ON Q15 MINUTE CHECKS THROUGHOUT THE NIGHT, NOTED TO HAVE SLEPT APPROXIMATELY 2.5 HOURS INTERMITTENTLY.
[2019-02-28 07:47] VITALS: BP 143/76
--- NOTE | 2019-02-28 10:30 | NUR ---
Discharge Plan has been changed. Plan to discharge patient next week. Pt. will return to [facility].
--- NOTE | 2019-02-28 11:45 | NUR ---
AM GROUP PT ATTENDED AND PARTICIPATED IN MORNING GROUP THERAPY BY COLORING AND SOCIALIZING. PT WAS ON TASK AND PLEASANT. PT EXPRESSED NO A. V. HALLUCINATIONS DURING GROUP.
--- NOTE | 2019-02-28 15:37 | NUR ---
PM GROUP/SOCIAL INTERACTIONS PT WAS PRESENT AT THE START OF GROUP AND ASKED TO BE ASSISTED TO THE RESTROOM. PT WAS TAKEN AND DID NOT RETURN.
--- NOTE | 2019-02-28 16:53 | NUR ---
PT VISITING WITH FAMILY WHEN FAMILY NOTIFIED THIS NURSE THAT PT WAS SPEAKING TO UNSEEN OTHERS, STATES "GO GET HER ANNE" PT ENCOURAGED TO VERBALIZE INTERNAL THOUGHT PROCESS. PT PROVIDED 1:1 FOR EMOTIONAL SUPPORT. PT DENIES HALLUCINATIONS OR DELUSIONS. STATES "NO, I TOLD YOU, I DON'T. I TOLD THEM THAT ANNE HAS BEEN IN TO VISIT ME". EYE CONTACT MINIMAL DURING ASSESSMENT, PT STARING OUT OF WINDOW, DELAYED RESPONSE TIME TO VERBAL CUES. NO OTHER SS OF ATTENDING TO INTERNAL STIMULI AT THIS TIME WILL CONTINUE TO ASSESS PT FOR SI/HI, HALLUCINATIONS AND DELUSIONS. WILL CONTINUE TO ENCOURAGE CONTINUED MEDICATION COMPLIANCE. Q15 MIN MONITORING PER POLICY
[2019-02-28 20:00] VITALS: BP 127/90
--- NOTE | 2019-02-28 22:27 | NUR ---
NO ADVERSE MOODS OR BEHAVIORS NOTED THIS SHIFT. PT ALERT TO SELF AND APPROXIMATE PLACE AND TIME. ST/LT MEMORY DEFICITS NOTED. MOOD STABLE. DENIES HALLUCINATIONS, SI/HI, OR PAIN. PT STATES THAT SHE FEELS JUST FINE TODAY. NO S/S OF INTERACTING WITH INTERNAL STIMULI. NO DELUSIONAL THOUGHT PROCESS NOTED. MAINTAINS EYE CONTACT WHILE TALKING, SMILING WITH CONVERSATION. NO S/S OF DISTRESS NOTED. RESPS EVEN AND UNLABORED ON ROOM AIR. ATE HS SNACK, DRANK ADEQUATELY. ABLE TO VOICE NEEDS. MEDICATION COMPLIANT. UTILIZE WHEELCHAIR DUE TO UNSTEADY GAIT. 2 ASSIST WITH GRISEL FOR TRANSFER. ENCOURAGE TO SHIFT WEIGHT FREQUENTLY, TWO ASSIST WITH SHIFTING WEIGHT FREQUENTLY. INCONTINENT OF URINE. FALLING STAR PROGRAM IN PLACE. Q15 MINUTE CHECKS MAINTAINED FOR SAFETY.
--- NOTE | 2019-03-01 05:15 | NUR ---
PT MONITORED ON Q15 MINUTE CHECKS THROUGHOUT THE NIGHT. PT NOTED TO HAVE SLEPT APPROXIMATELY 6 HOURS UNINTERRUPTED.
[2019-03-01 07:24] VITALS: BP 148/73
--- NOTE | 2019-03-01 07:53 | NUR ---
PT AWAKE, ALERT, RESPS EASY AND EVEN ON ROOM AIR. STAFF ASSISTING PT WITH HYGIENE CARE/TOLIETING NEEDS. NO DISTRESS NOTED.
--- NOTE | 2019-03-01 10:25 | NUR ---
AND TEAM ON UNIT TO SEE PT AT THIS TIME.
--- NOTE | 2019-03-01 11:19 | NUR ---
P- MILDLY CONFUSED, ST/LT MEMORY GAPS. MOOD APPEARS DEPRESSED WITH FLAT AFFECT. PT APPEARS GUARDED. I- ORIENTATION, MOOD AND BEHAVIOR ASSESSED. ASSESSED PT FOR SI/HI, INTENT OR PLAN. ASSESSED PT FOR S/S HALLUCINATIONS, PARANOIA AND/OR DELUSIONS. MEDICATIONS ADMINISTERED PER PHYSICIAN'S ORDERS. ASSISTANCE WITH ADL CARE PROVIDED, GRISEL LIFT FOR TRANSFERS. ENCOURAGED PT TO ATTEND AND PARTICIPATE IN [employer] [facility] GROUPS AND ACTIVITIES. R- PT IS ALERT AND ORIENTED TO PERSON, APPROXIMATE PLACE, STATES SHE IS IN THE HOSPITAL BUT UNABLE TO STATE WHICH ONE. MILDY CONFUSED. ST/LT MEMORY GAPS NOTED. PT DENIES SI/HI, INTENT OR PLAN. PT DENIES HALLUCINATIONS, NO RESPONSE TO INTERNAL STIMULI NOTED. MOOD APPEARS DEPRESSED WITH FLAT AFFECT. PT APPEARS GUARDED, PROVIDES SHORT ANSWERS TO QUESTIONS. PT IS MEDICATION COMPLIANT WITHOUT DIFFICULTY. RELIANT ON STAFF FOR ASSISTANCE WITH ADL CARE, GRISEL LIFT FOR TRANSFERS. NO AGGRESSIVE BEHAVIORS NOTED. NO DISTRESS NOTED. P- PLAN TO CONTINUE CURRENT TREATMENT, CONTINUE TO MONITOR MOOD AND BEHAVIORS, PROVIDE APPROPRIATE REORIENTATION, REDIRECTION AND 1:1 NEEDED. CONTINUE TO ENCOURAGE MEDICATION COMPLIANCE WELL GROUP ATTENDANCE AND PARTICIPATION.
--- NOTE | 2019-03-01 11:34 | NUR ---
AM GROUP/EXERCISE PT WAS PRESENT FOR MORNING GROUP THERAPY RECLINED IN A BARBARA CHAIR. PT STATED AT THE START OF GROUP THAT SHE MISSED BREAKFAST AND WANTED A SNACK. PT CONSUMED SNACK IN ADDITION TO A BREAKFAST TRAY THAT WAS BROUGHT IN. PT WAS NOTED TO BE TALKING TO HERSELF AND BECAME TEARFUL, WHEN QUESTIONED, "WHAT'S WRONG?" PT STOPPED AND SAID, "OH, NOTHING" PT WAS OBSERVED TO BE DOING THIS SEVERAL TIMES DURING GROUP THERAPY
--- NOTE | 2019-03-01 15:35 | NUR ---
ON UNIT TO SEE PT AT THIS TIME, UPDATE GIVEN.
--- NOTE | 2019-03-01 15:35 | NUR ---
ON UNIT TO SEE PT AT THIS TIME.
--- NOTE | 2019-03-01 15:38 | NUR ---
PM GROUP PT ATTENDED AFTERNOON GROUP THERAPY AND PARTICIPATED BY GETTING A MANICURE. WHEN FINISHED, PT FELL ASLEEP RECLINED IN A BARBARA CHAIR. PT EXPRESSED NO A. V. HALLUCINATIONS DURING GROUP
--- NOTE | 2019-03-01 15:38 | NUR ---
Treatment Plan meeting with Dr. Toscano, RN, SW and Welding Foreman. Plan for Discharge Next week. Pt. will return to [place].
--- NOTE | 2019-03-01 15:49 | NUR ---
Spoke with Jaclyn from [facility]. Notified of Plans to discharge Next week. Clinical Updates faxed to Facility.
[2019-03-01 20:00] VITALS: BP 127/70
--- NOTE | 2019-03-01 23:12 | NUR ---
24 HR chart check completed.
--- NOTE | 2019-03-02 02:50 | NUR ---
P- ALERT TO PERSON AND KNOWS THAT SHE IS IN A HOSPITAL. CONFUSION AND ST/LT MEMORY DEFICITS NOTED. MOOD LABILE. AUDITORY AND VISUAL HALLUCINATIONS. ISOLATIVE TO SELF. DELAYED RESPONSE WHEN TALKING WITH PT, MINIMAL EYE CONTACT. I- REORIENT FREQUENTLY WHEN CONFUSION IS NOTED. ASSESS MOOD, ORIENTATION, HALLUCINATIONS, DELUSIONS, SI/HI, OR PAIN. PROVIDE MEDICATIONS ON TIME WITH EDUCATION ON EACH. ASSESS/MONITOR HALLUCINATINOS FOR COMMAND HALLUCINATIONS. ENCOURAGE CONVERSATION WITH PT. 1:1 INTERACTION WITH EMOTIONAL SUPPORT AND VENTILATION OF FEELINGS PROVIDED. 2 ASSIST WITH GRISEL PROVIDED WHEN TRANSFERING. 2 ASSIST WITH ADLS AND CARE. TURN AND REPOSITION PT FREQUENTLY AND FOR COMFORT. R- REMAINS AT BASELINE CONFUSION, EVEN WITH REORIENTATION PROVIDED. MOOD REMAINS LABILE. 1:1 INTERACTION INEFFECTIVE, PT WILL CONVERSE WITH STAFF WHEN SPOKEN TO FIRST, WILL NOT HOLD UP AN ENTIRE CONVERSATION. MINIMAL EYE CONTACT AND DELAYED REPONSE. PT LOOKING IN ANOTHER DIRECTION AND WHEN SPEAKING PT WILL GO "OH", LOOK IN THE STAFFS DIRECTION AND THEN RESPOND TO STAFF. PT DENIES HALLUCINATIONS, SI/HI OR PAIN. ATE HS SNACK. MED COMPLIANT. NO DELUSIONAL THOUGHT PROCESS NOTED. NO S/S OF DISTRESS NOTED. RESPS EVEN AND UNLABORED ON ROOM AIR. NOTED THAT PT WAS WHISPERING TO HERSELF AND PATTING THE TABLE NEXT TO HER SNACK. PT STATED "OKAY BABY, IT IS NOW BED TIME, YOU GET SOME REST NOW", THEN PATTED NEXT TO HER SNACK ON THE TABLE AT THIS TIME. WHEN ASSESSING HALLUCINATIONS, PT QUICKLY DENIED ANY HALLUCINATIONS, SEEING ANYTHING OR HEARING ANYTHING, DENIED SEEING A BABY. ONCE STAFF WALKED AWAY, NOTED PT TO CONTINUE WHISPERING AND GESTURING TO UNSEEN OBJECTS. INCONTINENT OF BLADDER. P- REORIENT FREQUENTLY WHEN CONFUSION IS NOTED. 1:1 INTERACTION PROVIDED WHEN NECESSARY. PROVIDE MEDICATIONS ON TIME WITH EDUCTION ON EACH. ASSESS MOOD, ORIENTATION, HALLUCINATIONS, DELUSIONS, SI/HI OR PAIN. MONITOR/ASSESS HALLUCINATIONS AND ASSESS FOR COMMAND HALLUCINATIONS. 2 ASSIST WITH GRISEL FOR TRANSFER, ADLS, AND CARE. TURN AND ROTATE POSITIONS FREQUENTLY AND FOR COMFORT. ENCOURAGE CONVERSATION. FALLING STAR PROGRAM IN PLACE. Q15 MINUTE CHECKS MAINTAINED FOR SAFETY.
--- NOTE | 2019-03-02 05:14 | NUR ---
PT MONITORED ON Q15 MINUTE CHECKS THROUGHOUT THE NIGHT. NOTED PT HAVE SLEPT APPROXIMATELY 7 HOURS UNINTERRUPTED.
--- NOTE | 2019-03-02 08:05 | NUR ---
PT AWAKE AND ALERT, RESPS EASY AND EVEN ON ROOM AIR. PT FEEDING SELF BREAKFAST IN DINING ROOM WITH PEERS. NO DISTRESS NOTED. Q15 MIN SAFETY CHECKS CONTINUE. LEXUS HOME ENERGY RATER ON UNIT TO SEE PT AT THIS TIME, UPDATE GIVEN.
[2019-03-02 08:12] VITALS: BP 122/84
--- NOTE | 2019-03-02 08:30 | NUR ---
ON UNIT TO SEE PT AT THIS TIME.
--- NOTE | 2019-03-02 11:15 | NUR ---
RECIEVED CALL FROM PT'S SANTIAGO HERBERT REQUESTING UPDATES. PT GAVE PERMISSION FOR THIS NURSE TO SPEAK WITH AND RELEASE INFORMATION REGARDING TREATMENT TO PT'S SANTIAGO HERBERT. UPDATES PROVIDED. ALL QUESTIONS ANSWERED.
--- NOTE | 2019-03-02 12:30 | NUR ---
RECIEVED CALL THIS AFTERNOON FROM PT'S SISTER OMAR REQUESTING UPDATES. PT GAVE THIS NURSE PERMISSION TO UPDATE AND RELEASE INFORMATION REGARDING HER TREATMENT TO PT'S SISTER. UPDATE PROVIDED. QUESTIONS ANSWERED. SISTER VOICED THAT PT USUALLY SITS IN A WHEELCHAIR AT LONG-TERM AND SELF PROPELS AROUND AND WONDERED IF THAT WAS A POSSIBILITY HERE. MADE AWARE WE CAN ATTEMPT THIS HERE LONG IT IS SAFE FOR PT AND STAFF D/T GRISEL LIFT. SISTER VOICED UNDERSTANDING.
--- NOTE | 2019-03-02 16:00 | NUR ---
PM GROUP/LEISURE SKILLS PT ATTENDED AND PARTICIPATED IN GROUP. PT DID NOT EXPRESS ANY A.V. HALLUCINATIONS AT THIS TIME AND WILL CONTINUE TO ATTEND AND PARTICIPATE IN FUTURE GROUP SESSIONS.
--- NOTE | 2019-03-02 16:50 | NUR ---
PT IN BED AT THIS TIME FOR HYGIENE CARE AND COLLECTION OF URINE SAMPLE. ASSISTED OUT OF BED VIA GRISEL LIFT FOR DINNER. OFFERED TO PT TO SIT IN REGULAR WHEELCHAIR INSTEAD OF GERICHAIR PER CONVERSATION WITH SISTER. PT DECLINED, STATES SHE PREFERS THE GERICHAIR IT RECLINES.
[2019-03-02 16:52] LABS: BILIRUBIN NEGATIVE (NEGATIVE); BLOOD NEGATIVE (NEGATIVE); CLARITY SL CLOUDY (CLEAR); COLOR YELLOW (YELLOW); GLUCOSE NEGATIVE (NEGATIVE); KETONE NEGATIVE (NEGATIVE); LEUKO ESTERASE 1+ (NEGATIVE); NITRITE NEGATIVE (NEGATIVE); PH 6.5 (5.0-9.0); SPECIFIC GRAVITY <= 1.005 (1.005-1.030); UROBILINOGEN 0.2 E.U./dl (0.2-1.0)
[2019-03-02 16:59] LABS: BACTERIA 4+
--- NOTE | 2019-03-02 18:20 | NUR ---
P- MILD CONFUSION. ST MEMORY GAPS. PT CONTINUES TO BE NOTED BY STAFF WITH POSSIBLE RESPONSE TO INTERNAL AUDITORY STIMULI ALTHOUGH SHE DENIES SENSORY DISTURBANCES WHEN ASKED BY STAFF. PT NOTED AT TIMES WITH DELAYED RESPONSES, MINIMAL EYE CONTACT AND SEEN WHISPERING TO UNSEEN OTHERS. I- ORIENTATION, MOOD AND BEHAVIOR ASSESSED. ASSESSED PT FOR SI/HI, INTENT OR PLAN. ASSESSED PT FOR S/S HALLUCINATIONS, PARANOIA AND/OR DELUSIONS. MEDICATIONS ADMINISTERED PER PHYSICIAN'S ORDERS. ASSISTANCE WITH ADL CARE PROVIDED NEEDED. GRISEL LIFT FOR TRANSFERS. APPROPRIATE REORIENTATION, REDIRECTION AND 1:1 PROVIDED NEEDED. ENCOURAGED PT TO ATTEND AND PARTICIPATE IN [employer] [facility] GROUPS AND ACTIVITIES. R- PT IS ALERT AND ORIENTED TO PERSON, APPROXIMATE PLACE AND TIME. STATES SHE IS IN A HOSPITAL BUT UNABLE TO STATE WHICH ONE. MOOD APPEARS TO BE STABLE, AFFECT IS BLUNTED. SPEECH IS COHERENT, ABLE TO ANSWER QUESTIONS APPROPRIATELY AND MAKE NEEDS KNOWN WITHOUT DIFFICULTY. DELAYED RESPONSES NOTED AT TIMES. MINIMAL EYE CONTACT AT TIMES. PT DENIES SI/HI, INTENT OR PLAN. PT DENIES HALLUCINATIONS, HOWEVER; NOTED ABOVE EVIDENCE OF POSSIBLE INTERNAL AUDITORY STIMULI HAS BEEN OBSERVED AT TIMES BY STAFF T/O SHIFT. PT IS MEDICATION COMPLIANT WITHOUT DIFFICULTY. NO AGGRESSIVE BEHAVIORS DISPLAYED. NO DISTRESS NOTED. P- PLAN TO CONTINUE CURRENT TREATMENT, CONTINUE TO MONITOR MOOD AND BEHAVIORS, PROVIDE APPROPRIATE REORIENTATION, REDIRECTION AND 1:1 NEEDED. CONTINUE TO ENCOURAGE MEDICATION COMPLIANCE WELL GROUP ATTENDANCE AND PARTICIPATION.
--- NOTE | 2019-03-02 18:56 | NUR ---
SHIFT CHART CHECK COMPLETED.
[2019-03-02 19:38] VITALS: BP 132/78
--- NOTE | 2019-03-02 20:02 | NUR ---
P--HALLUCINATIONS I--REVIEWED FAMILY REQUEST THAT SHE BE IN A WHEELCHAIR AND NOT A BARBARA CHAIR. DISCUSSED EVENING MEDICATIONS AND DAYS ACTIVITIES. ENCOURAGED CLIENT TO THINK ABOUT SITTING IN WHEELCHAIR FOR AT LEAST A LITTLE BIT EVERYDAY. REORIENTED TO PLACE DATE AND TIME R--I'M NOT SITTING IN A WHEELCHAIR. I CAN'T GET COMFORTABLE, IN THIS CHAIR AT LEAST I CAN LAY BACK AND REST. THE DAY WAS FINE. I WATCHED MOVIES.
--- NOTE | 2019-03-03 03:45 | NUR ---
24 HR chart check completed.
--- NOTE | 2019-03-03 06:32 | NUR ---
SLEPT WELL PAST 2200PM
[2019-03-03 06:55] LABS: ALBUMIN 3.2 gm/dl (3.1-4.5); ALKALINE PHOSPHATASE 125 U/L (45-117); BUN 21 mg/dl (7-24); CHLORIDE 107 mmol/L (98-107); CREATININE 0.93 mg/dL (0.55-1.02); POTASSIUM 4.3 mmol/L (3.5-5.1); SGOT/AST 16 IU/L (3-35); SGPT/ALT 22 U/L (12-78); SODIUM 139 mmol/L (136-145); TOTAL PROTEIN 6.3 gm/dL (6.4-8.2)
--- NOTE | 2019-03-03 07:35 | NUR ---
ON UNIT TO SEE PT AT THIS TIME, MADE AWARE OF URINALYSIS RESULT.
[2019-03-03 08:00] VITALS: BP 126/80
--- NOTE | 2019-03-03 08:29 | NUR ---
LEXUS METAL SLITTER ON UNIT TO SEE PT AT THIS TIME. UPDATE GIVEN.
--- NOTE | 2019-03-03 14:22 | NUR ---
P- MILD CONFUSION AND SHORT TERM MEMORY GAPS. MOOD APPEARS STABLE WITH APPROPRIATE AFFECT. PT DENIES HALLUCINATIONS, CONTINUES WITH DELAYED RESPONSES TO SOME QUESTIONS ASKED BY STAFF. NO AGGRESSIVE BEHAVIORS. PT NOTED WITH POSITIVE PEER AND STAFF INTERACTIONS, ENJOYING PLAYING CARDS AND BOARD GAMES WITH PEERS/STAFF THIS AFTERNOON. I- ORIENTATION, MOOD AND BEHAVIOR ASSESSED. ASSESSED PT FOR SI/HI, INTENT OR PLAN. ASSESSED PT FOR S/S HALLUCINATIONS, PARANOIA AND DELUSIONS. MEDICATIONS ADMINISTERED PER PHYSICIAN'S ORDERS. ASSISTANCE WITH ADL CARE PROVIDED NEEDED. GRISEL LIFT FOR TRANFERS. ENCOURAGED PT TO ATTEND AND PARTICIPATE IN [employer] [facility] GROUPS AND ACTIVITIES. R- PT IS ALERT AND ORIENTED TO PERSON, APPROXIMATE PLACE AND TIME. MILD CONFUSION, STATES SHE IS IN THE HOSPITAL BUT UNABLE TO STATE WHICH ONE. ST MEMORY GAPS NOTED. RESPS EASY AND EVEN ON ROOM AIR. MOOD APPEARS STABLE THIS SHIFT WITH APPROPRIATE AFFECT. SPEECH IS WNL AND COHERENT, ABLE TO MAKE NEEDS KNOWN WITHOUT DIFFICULTY. PT DENIES SI/HI, INTENT OR PLAN. PT DENIES HALLUCINATIONS, CONTINUES WITH DELAYED RESPONSES AT TIMES, ESPECIALLY IN RESPONSE TO QUESTIONS BY STAFF REGARDING THE PRESENCE OF HALLUCINATIONS. NO WHISPERING TO UNSEEN OTHERS NOTED. NO PARANOIA OR DELUSIONS NOTED. PT IS CALM AND COOPERATIVE. POSITIVE INTERACTIONS NOTED WITH STAFF AND PEERS. NO AGGRESSIVE BEHAVIORS. PT IS MEDICATION COMPLIANT WITHOUT DIFFICULTY. NO DISTRESS NOTED. P- PLAN TO CONTINUE CURRENT TREATMENT, CONTINUE TO MONITOR MOOD AND BEHAVIORS, PROVIDE APPROPRIATE REORIENTATION, REDIRECTION AND 1:1 NEEDED. CONTINUE TO ENCOURAGE MEDICATION COMPLIANCE WELL GROUP ATTENDANCE AND PARTICIPATION.
--- NOTE | 2019-03-03 17:36 | NUR ---
SHIFT CHART CHECK COMPLETED.
[2019-03-03 19:36] VITALS: BP 119/78
--- NOTE | 2019-03-03 21:26 | NUR ---
P--CONFUSION I--ORIENTED TO PLACE AND TIME. DISCUSSED DAYS EVENTS. OFFERED EMOTIONAL SUPPORT. PRAISED HER FOR INTERACTING WITH STAFF AND PEERS SO WELL TODAY. DISCUSSED EVENING MEDICATIONS R--ORIENTED TO SELF AND PLACE. FLAT AFFECT. INTERMITTENT EYE CONTACT DURING TALKING. PERIODS OF EYE DARTING NOTED BUT DENIES HALLUCINATIONS. P--WILL CONTINUE TO MONITOR FOR CHANGES IN MOOD/BEHAVIOR. MONITOR Q 15 MINS AND PRN FOR SAFETY.
--- NOTE | 2019-03-04 05:02 | NUR ---
TYLENOL GIVEN FOR C/O BILAT LEG PAIN 01/30
--- NOTE | 2019-03-04 05:07 | NUR ---
24 HR chart check completed.
--- NOTE | 2019-03-04 05:39 | NUR ---
SLEPT FAIR. HEARD HER TALKING TO SOMEONE ABOUT GETTING THE BABY. NOT UPSET OR ANXIOUS JUST HAVING A ONE SIDED CONVERSATION. UNSURE IF SHE IS RESPONDING TO INTERNAL STIMULI OR MISTAKING ROOMMATE FOR LENY. EYES CLOSED, APPEARS TYLENOL EFFECTIVE
[2019-03-04 07:52] VITALS: BP 119/71
--- NOTE | 2019-03-04 10:36 | NUR ---
KATY AGRAWAL NP ON UNIT AT THIS TIME TO ASSESS PT.
--- NOTE | 2019-03-04 11:18 | NUR ---
Clinical updates faxed to [place] Attn: Jaclyn.
--- NOTE | 2019-03-04 11:21 | NUR ---
P- ALERT TO PERSON AND APPROXIMATE PLACE, KNOWS THAT SHE IS IN THE HOSPITAL. CONFUSION AND ST/LT MEMORY DEFICITS NOTED. MOOD HOPELESS/HELPESS, PLESANT. NOTED INTERACTING WITH INTERNAL STIMULI. I- REORIENT FREQUENTLY WHEN CONFUSION IS NOTED. 1:1 INTERACTION WITH EMOTIONAL SUPPORT, VENTILATION OF FEELINGS, AND SOCIALIZATION PROVIDED. ASSESS MOOD, ORIENTATION, HALLUCINATIONS, DELUSIONS, SI/HI OR PAIN. MONITOR FOR COMMAND HALLUCINATIONS. PROVIDE MEDICATIONS ON TIME WITH EDUCATION ON EACH. ENCOURAGE TO ATTEND/PARTICIPATE IN GROUP THERAPIES FOR SOCIALIZTION AND EMOTIONAL SUPPORT. ENCOURAGE TO INTERACT WITH PEERS AND STAFF. 2 ASSIST WITH TRANSFER, GRISEL, AND SHIFTING WEIGHT FREQUENTLY. R- REMAINS AT BASELINE CONFUSION EVEN WITH REORIENTATION PROVIDED. MEDICATION COMPLIANT. PT NOTED TO BE WHISPERING TO UNSEEN OTHER, ONLY AUDBILE WORD HEARD WAS "BABY". PT DENIES HALLUCINATIONS, SI/HI OR PAIN. PT DENIES SAYING ANYTHING ABOUT A "BABY" AND REFUSES TO ELLABORATE. NO S/S OF DISTRESS NOTED. RESPS EVEN AND UNLABORED ON ROOM AIR. PT ATTENDING IN GROUP THERAPY. ATE BREAKFAST. PT PLESANT WITH CONVERSATION. PT STATED "I JUST REALLY WANT TO GO HOME". UTILIZING WHEELCHAIR DUE TO UNSTEADY GAIT. ABLE TO VOICE NEEDS. P- REORIENT FREQUENTLY WHEN CONFUSION IS NOTED. 1:1 INTERACTION WITH EMTIONAL SUPPORT PROVIDED WHEN NECESSARY. PROVIDE MEDICATIONS ON TIME WITH EDUCATION ON EACH. MONITOR HALLUCINATIONS, ASSESS FOR COMMAND. ASSESS MOOD, ORIENTATION, HALLUCINATIONS, DELUSIONS, SI/HI OR PAIN EVERY SHIFT. FALLING STAR PROGRAM IN PLACE. 2 ASSIST WITH TRANSFER, GRISEL, SHIFT WEIGHT FREQUENTLY. Q15 MINUTE CHECKS MAINTAINED FOR SAFETY.
--- NOTE | 2019-03-04 11:45 | NUR ---
AM GROUP PT ATTENDED AND PARTICIPATED IN ALL GROUP ACTIVITES. PT WAS QUIET AND ON TASK. PT EXPRESSED NO A. V. HALLUCINATIONS DURING GROUP. PT WAS ENGAGED IN THE PROJECT AND MET THE OBJECTIVES OF THE WORK.
--- NOTE | 2019-03-04 11:50 | NUR ---
Shift chart check completed.
--- NOTE | 2019-03-04 15:27 | NUR ---
Pt was very pleasant today when interacting with this typewriter tester. Pt was smiling and appropriate in conversation. No hallucinations/delusions noted during interaction.
--- NOTE | 2019-03-04 15:40 | NUR ---
PM GROUP/ART AND MUSIC PT ATTENDED AFTERNOON GROUP THERAPY AND PARTICIPATED BY WORKING ON A PAINTING. PT WAS QUIET AND ON TASK. PT EXPRESSED NO A. V. HALLUCINATIONS DURING GROUP THERAPY.
[2019-03-04 20:23] VITALS: BP 128/89
--- NOTE | 2019-03-04 20:39 | NUR ---
EVENING/RELAXTION TECHNIQUES/LEISURE PT ATTENDED BUT ONLY PARTICIPATED BY FINISHING ART PROJECT AND LISTENING TO MUSIC. PT WILL CONTINUE TO ATTEND AN DPARTICIPATE [facility] SESSIONS. PT DID NOT EXPRESS ANUY A.V. HALLUCNITAIONS AT THIS TIME.
--- NOTE | 2019-03-05 02:14 | NUR ---
NO ADVERSE BEHAVIORS NOTED. PT ALERT TO PERSON AND PLACE WITH CONFUSION. MOOD STABLE, HOPELESS/HELPLESS AT TIMES. PT CALM, PLEASANT, AND INTERACTIVE. PT ABLE TO MAKE NEEDS KNOWN, COMPLIANT WITH HOC. PT SLOW TO PROCESS DURING 1:1, SPEECH SOFT, STATED SHE WAS DOING OKAY TODAY WITH NO COMPLAINTS. ALSO WHEN SPEAKING TO THIS NURSE PT WHISPERED THE WORD "AYAZ", WHEN QUESTIONED IF SHE IS HAVING POSSIBLE HALLUCINATIONS PT DENIED IT AND STATED SHE JUST WANTED TO SAY HER DAUGHTERS NAME. PT ALSO DENIES SI/HI, NO PARANOIA/DELUSIONS OBSERVED. PT MEDICATION COMPLIANT WITHOUT DIFFICULTY, EDUCATION PROVIDED. NO PHYSICAL COMPLAINTS VOICED. PT CURRENTLY LAYING DOWN WITH EYES CLOSED. RESPIRATIONS EASY AND REGULAR, NO SIGNS OR SYMPTOMS OF DISTRESS NOTED. PLAN IS TO CONTINUE TO MONITOR MOOD AND BEHAVIORS. PROVIDE 1:1 FOR VENTILATION OF FEELINGS WITH EMOTIONAL SUPPORT NEEDED. ENCOURAGE MEDICATION COMPLIANCE AND EDUCATE. MAINTAIN Q 15 MIN CHECKS.
--- NOTE | 2019-03-05 03:28 | NUR ---
24 HOUR CHART CHECK COMPLETED.
--- NOTE | 2019-03-05 05:27 | NUR ---
PATIENT OBSERVED ON Q 15 MIN CHECKS TO HAVE SLEPT APPROX 2 HOURS THROUGHOUT THE NIGHT WITH MULTIPLE AWAKENINGS NOTED OF PATIENT LAYING QUIETLY IN BED WITH EYES OPEN. NO SIGNS OR SYMPTOMS OF DISTRESS NOTED.
[2019-03-05 08:00] VITALS: BP 124/85
--- NOTE | 2019-03-05 11:10 | NUR ---
Telephone Conference Call with Dr. Toscano, RN, and Pet Caretaker. Plan for discharge Monday. Pt. will return to [place]. Call Placed to facility and spoke with Jaclyn. Notified of plans to discharge Monday.
--- NOTE | 2019-03-05 11:43 | NUR ---
AM GROUP PT DID NOT ATTEND MORNING GROUP THERAPY. PT WAS IN BED RESTING.
--- NOTE | 2019-03-05 15:21 | NUR ---
Spoke with pt's Bony and provided update of pt's status. Informed Bony that pt is scheduled to discharge tomorrow.
[2019-03-05] MEDS ORDERED: TRAZODONE50 MG PO (19:00)
[2019-03-05] MEDS ORDERED: ABILIFY20 MG PO (19:00)
[2019-03-05] MEDS ORDERED: ABILIFY5 MG PO (19:00)
[2019-03-05] MEDS ORDERED: MIRTAZAPINE30 M2 PO (19:00)
[2019-03-05 21:42] VITALS: BP 133/81
--- NOTE | 2019-03-06 01:07 | NUR ---
NO ADVERSE BEHAVIORS NOTED. PT ALERT TO PERSON AND PLACE WITH CONFUSION. MOOD STABLE, HOPELESS/HELPLESS AT TIMES. PT CALM, PLEASANT, AND INTERACTIVE. PT ABLE TO MAKE NEEDS KNOWN, COMPLIANT WITH HOC. PT SLOW TO PROCESS DURING 1:1, SPEECH SOFT, STATED SHE WAS DOING OKAY TODAY AND READY FOR BED. PT DENIES SI/HI AND HALLUCINATIONS, NO NOTED RESPONDING TO INTERNAL STIMULI. NO PARANOIA/DELUSIONS OBSERVED. PT MEDICATION COMPLIANT WITHOUT DIFFICULTY, EDUCATION PROVIDED. NO PHYSICAL COMPLAINTS VOICED. PT CURRENTLY LAYING DOWN WITH EYES CLOSED. RESPIRATIONS EASY AND REGULAR, NO SIGNS OR SYMPTOMS OF DISTRESS NOTED. PLAN IS TO CONTINUE TO MONITOR MOOD AND BEHAVIORS. PROVIDE 1:1 FOR VENTILATION OF FEELINGS WITH EMOTIONAL SUPPORT NEEDED. ENCOURAGE MEDICATION COMPLIANCE AND EDUCATE. MAINTAIN Q 15 MIN CHECKS.
--- NOTE | 2019-03-06 03:03 | NUR ---
24 HOUR CHART CHECK COMPLETED.
--- NOTE | 2019-03-06 05:55 | NUR ---
PATIENT OBSERVED ON Q 15 MIN CHECKS TO HAVE SLEPT APPROX 6 HOURS WITH NO AWAKENINGS OR SIGNS AND SYMPTOMS OF DISTRESS NOTED.
--- NOTE | 2019-03-06 06:37 | NUR ---
PATIENT RECIEVED PRN TYLENOL 650MG PO REQUESTED AT 0635 FOR C/O ALL OVER LEG PAIN WITH A RATING OF 9/10. NO OTHER PHYSICAL COMPLAINTS NOTED AT THIS TIME.
--- NOTE | 2019-03-06 08:00 | NUR ---
PT AWAKE, ALERT, RESPS EASY AND EVEN ON ROOM AIR. FEEDING SELF BREAKFAST IN DINING ROOM AT THIS TIME. NO DISTRESS NOTED.
--- NOTE | 2019-03-06 08:00 | NUR ---
Treatment Plan meeting was held with RN, AT, SW and Pediatric Ophthalmologist. Plan for discharge today. Dr. Toscano gave Verbal Order Yesterday that patient was stable and can discharge with return to [facility]. Transportation set up with [facility] to transport with milk pickup driver time 2:00 p.m. Pt. will receive Mental Health Follow up at facility 1 x month or PRN and Primary Care Follow up at facility 1 x month or PRN. Family Notified of discharge today.
[2019-03-06 08:06] VITALS: BP 107/68
--- NOTE | 2019-03-06 09:40 | NUR ---
SPOKE WITH KATY GUAN RE: PT DISCHARGE FOR TODAY AND MEDICAL MEDS NEEDING COMPLETED, NO FURTHER ORDERS AT THIS TIME.
--- NOTE | 2019-03-06 10:38 | NUR ---
[employer] RESOURCES GENERALIST ON UNIT TO SEE PT AT THIS TIME.
--- NOTE | 2019-03-06 10:49 | NUR ---
Met with pt this AM. Discussed her discharge. Pt stated that she is feeling "good and ready to go." Discussed pt's meeting her at the . Notified pt's Bony of pt's discharge time of 14:00. Bony expressed gratitude for pt's care while at [facility] and stated that he is thrilled with her improvement.
--- NOTE | 2019-03-06 10:52 | NUR ---
Patient discharging today to [facility]. Follow-up will be with Dr Baeza, visiting psychiatrist. While at [facility], pt's mood improved. Pt's auditory hallucinations also lessened. Pt did participate in programming and was pleasant and cooperative.
--- NOTE | 2019-03-06 11:45 | NUR ---
AM GROUP PT ATTENDED MORNING GROUP THERAPY AND PARTICIPATED BY FINISHING A PAINTING AND COLORING. PT EXPRESSED NO A.V. HALLUNCINATIONS DURING GROUP. PT IS SET TO BE DISCHARGED FROM THE UNIT THIS AFTERNOON
--- NOTE | 2019-03-06 12:36 | NUR ---
P- MILD CONFUSION, STATES SHE IS IN THE HOSPITAL, UNABLE TO STATE WHICH ONE. MILD MEMORY GAPS. PLEASANT AND COOPERATIVE. PT REPORTS MOOD "REALLY HAPPY TODAY" BECAUSE SHE GETS TO GO HOME TODAY. PT CONTINUES WITH DELAYED RESPONSES AT TIMES DURING CONVERSATION. I- ORIENATION, MOOD AND BEHAVIORS ASSESSED. ASSESSED PT FOR SI/HI, INTENT OR PLAN. ASSESSED PT FOR S/S HALLUCINATIONS, PARANOIA OR DELUSIONS NOTED. MEDICATIONS ADMINISTERED PER PHYSICIAN'S ORDERS. ASSISTANCE WITH ADL CARE PROVIDED NEEDED. ENCOURAGED PT TO ATTEND AND PARTICIPATE IN [employer] GROUPS AND ACTIVITIES. R- PT IS ALERT AND ORIENTED TO PERSON, APPROXIMATE PLACE AND TIME. MILD ST MEMORY GAPS. RESPS EASY AND EVEN ON ROOM AIR. MOOD APPEARS STABLE, AFFECT IS APPROPRIATE. PT SMILES APPROPRIATELY. SPEECH REMAINS DELAYED AT TIMES, HOWEVER, PT PROVIDES APPROPRIATE RESPONSES. PT DENIES SI/HI, INTENT OR PLAN. PT DENIES HALLUCINATIONS, NO RESPONSE TO INTERNAL STIMULI NOTED. NO PARANOIA OR DELUSIONS NOTED. PT IS CALM, PLEASANT AND COOPERATIVE. INTERACTIVE WITH STAFF AND PEERS. PT IS MEDICATION COMPLIANT WITHOUT DIFFICULTY. NO AGGRESSIVE BEHAVIORS. NO DISTRESS NOTED. P- PLAN TO CONTINUE CURRENT TREATMENT, CONTINUE TO MONITOR MOOD AND BEHAVIORS; PROVIDE APPROPRIATE REORIENTATION, REDIRECTION AND 1:1 NEEDED. CONTINUE TO ENCOURAGE MEDICATION COMPLIANCE WELL GROUP ATTENDANCE AND PARTICIPATION.
--- NOTE | 2019-03-06 13:15 | NUR ---
NURSE TO NURSE REPORT GIVEN TO CLINT AT [facility].
--- NOTE | 2019-03-06 13:45 | NUR ---
Discharge Paperwork Faxed to [facility] Attn: Jaclyn.
--- NOTE | 2019-03-06 14:39 | NUR ---
PT DISCHARGED AT THIS TIME BACK TO [facility] WITH 2 SOLAR PANEL INSTALLATION SUPERVISOR. ALL DISCHARGE INSTRUCTIONS WERE REVIEWED WITH THE PT PRIOR TO DISCHARGE WITH PT'S STATED UNDERSTANDING OF ALL, COPIES OF DISCHARGE INSTRUCTIONS PROVIDED FOR FACILITY. ALL PERSONAL BELONGINGS WERE SENT WITH THE PT. PT LEFT THE UNIT IN STABLE CONDITION AT 1439 WITH MOLDER HELPER PRESENT.
== END 2019-03-06 14:39 | disposition other institution (70) | DRG 885 ==
LOC: 3N 11:17
PROVIDERS: Nurse Practitioner Women's Health; ADMIT Psychiatry & Neurology Psychiatry
DX: F31.9 Bipolar disorder, unspecified (principal); F17.210 Nicotine dependence, cigarettes, uncomplicated; J44.9 Chronic obstructive pulmonary disease, unspecified; E78.5 Hyperlipidemia, unspecified; I10 Essential (primary) hypertension; G35 Multiple sclerosis; F25.0 Schizoaffective disorder, bipolar type; R45.89 Other symptoms and signs involving emotional state; R26.2 Difficulty in walking, not elsewhere classified; Z90.49 Acquired absence of other specified parts of digestive tract; Z86.73 Personal history of transient ischemic attack (TIA), and cerebral infarction without residual deficits; Z91.81 History of falling; Z88.2 Allergy status to sulfonamides; Z82.49 Family history of ischemic heart disease and other diseases of the circulatory system; Z79.82 Long term (current) use of aspirin; Z79.899 Other long term (current) drug therapy

== ENCOUNTER 2019-07-26 15:42 | Inpatient (IN) | payer MEDICARE, MEDICAID ==
[~2019-07-26] VITALS: Ht 162.6 cm; Wt 90.9 kg
[~2019-07-26 15:42] MED LIST changes: +ABILIFY20 MG PO; +ABILIFY5 MG PO; +MIRTAZAPINE30 M2 PO; +REMERON15 M2 PO; +TRAZODONE50 MG PO
[2019-07-26] MEDS ORDERED: INVEGA SUSTENN156 MG IM (15:52)
[2019-07-26] MEDS ORDERED: IBUPROFEN600 MG PO (15:55)
[2019-07-26] MEDS ORDERED: CLONIDINE HCL0.1 MG PO (15:58)
[2019-07-26] MEDS ORDERED: BIOFREEZE118 ML T (16:16)
[2019-07-26] MEDS ORDERED: DULCOLAX STOOL100 MG PO (16:17)
[2019-07-26] MEDS ORDERED: ZETIA10 MG PO (16:18)
[2019-07-26] MEDS ORDERED: HYDR25T PO (16:19)
[2019-07-26] MEDS ORDERED: CYCLOBENZAPRINE10 MG PO (16:22)
[2019-07-26] MEDS ORDERED: MYRBETRIQ25 M1 PO (16:24)
[2019-07-26 17:37] VITALS: BP 110/83
[2019-07-26 17:55] VITALS: BP 110/83
--- NOTE | 2019-07-26 18:14 | NUR ---
LEIGH MADDEN a 68 year old F admitted via wheel chair from the ADMITTING as a voluntary admission. Arrived on unit at 1730. ALLERGIES: SULFA ATB. Vital signs are: [id number] 110/83. The POA gave verbal consent for the following forms with stated understanding: Authorization For The Release of Medical Information, Clothing List, Consent to Voluntary Admission and Hospitalization, Consent and Release Forms/Receipt of Rights, Acknowledgement of Advance Directive Information, Behavioral Health Consent Form, and Informed Consent of Medications. Admitted under the services of Dr. ASIA GRAY,[facility]. A search was conducted and hazardous articles were removed. Client was oriented to the unit. OLEGARIO PLASENCIA
--- NOTE | 2019-07-26 18:15 | NUR ---
PT REFUSED TO PARTICIPATE. ALERT TO PERSON WITH CONFUSION NOTED. NO HALLUCINATIONS OR DELUSIONS NOTED AT THIS TIME. DURING SKIN ASSESSMENT 3 SCARS NOTED TO RIGHT HIP, BILATERAL HEELS SOFT AND BLANCHABLE, A RASH WAS NOTED TO TOP OF LEFT FOOT AND LATERAL FOOT, AND DROP FOOT NOTED TO LEFT FOOT. PEN WAS REMOVED FROM PT IN ER. PT CAME IN WITH HER OWN WHEELCHAIR.
[2019-07-26 19:50] VITALS: BP 105/70
[2019-07-26 21:30] VITALS: BP 112/68
--- NOTE | 2019-07-26 22:20 | NUR ---
DR BAHENA ON UNIT TO SEE PATIENT. DR BAHENA UPDATED ABOUT PATIENT WITH SOFT HEELS, BUT HEELS ARE BLANCHABLE. DR BAHENA TO ORDER HEEL PROTECTORS FOR PATIENT
--- NOTE | 2019-07-26 22:55 | NUR ---
SUPERVISOR PLEATING UPDATED ABOUT ADMISSION, TIME ON FLOOR, AND ADMITTING DIAGNOSIS
--- NOTE | 2019-07-26 23:32 | NUR ---
24 HR chart check completed.
--- NOTE | 2019-07-27 05:59 | NUR ---
PATIENT SLEPT 6 HOURS OF INTERRUPTED SLEEP THROUGHOUT SHIFT. Q 15 MINUTE CHECKS MAINTAINED. P-CONFUSION, DEMANDING,IRRITABLE I-REDIRECTION WITH 1:1 THERAPEUTIC INTERVENTIONS AND PRESENT REALITY. EDUCATE AND ENCOURAGE MEDICATION COMPLIANCE R-PATIENT MEDICATION COMPLIANT. PATIENT ABLE TO MAKE NEEDS KNOWN THROUGHOUT SHIFT. PATIENT ATTEMPTING TO CLIMB OUT OF BED WITHOUT ASSISTANCE. PATIENT STATING TO NURSING STAFF "I'M LEAVING THIS HOSPITAL AND I DON'T CARE IF I CRAWL OUT". PATIENT REDIRECTED AND IN GERICHAIR FOR SAFETY. PATIENT PROVIDED FLUID AND NOURISHMENT AT HS. PATIENT DEMANDING WITH NURSING STAFF THROUGHOUT SHIFT. P-CONTINUE TO ENCOURAGE MEDICATION COMPLIANCE, CONTINUE TO PRESENT REALITY, ENCOURAGE GROUP THERAPY WHILE AWAKE
[2019-07-27 06:50] LABS: BASO % 0.4 % (0.0-1.0); EOS # 0.2 10*3/uL (0.0-0.4); HEMATOCRIT 44.9 % (37.0-47.0); HEMOGLOBIN 14.3 g/dl (12.0-16.0); LYMPH # 2.2 10*3/uL (1.3-4.4); LYMPH % 28.8 % (27.0-41.0); MEAN CELL VOLUME 91.1 fl (81.0-99.0); MEAN CORPUSCULAR HGB CONC 31.8 g/dl (33.0-37.0); MEAN PLATELET VOLUME 13.5 fl (9.6-12.3); MONO # 0.8 10*3/uL (0.1-1.0); MONO % 10.7 % (3.0-9.0); NEUT # 4.4 10*3/uL (2.3-7.9); NEUT % 56.7 % (47.0-73.0); PLATELET COUNT AUTOMATED 127 10*3/uL (130-400); RED BLOOD COUNT 4.93 10*6/uL (4.10-5.10); RED CELL DISTRI WIDTH 14.4 % (0-14.5); WHITE BLOOD COUNT 7.8 10*3/uL (4.8-10.8)
[2019-07-27 06:55] LABS: ALBUMIN 3.2 gm/dl (3.1-4.5); ALKALINE PHOSPHATASE 89 U/L (45-117); BUN 32 mg/dl (7-24); CHLORIDE 107 mmol/L (98-107); CHOLESTEROL 151 mg/dL (<200); CREATININE 1.06 mg/dL (0.55-1.02); HDL CHOLESTEROL 43 mg/dl (40-60); LDL CHOLESTEROL 75 mg/dL (9-159); SGOT/AST 15 IU/L (3-35); SGPT/ALT 22 U/L (12-78); SODIUM 140 mmol/L (136-145); TOTAL PROTEIN 6.4 gm/dL (6.4-8.2); TRIGLYCERIDES 167 mg/dl (<150); VLDL CHOLESTEROL 33 mg/dL (6-40)
[2019-07-27 07:30] VITALS: BP 116/78
[2019-07-27 07:35] LABS: VITAMIN D, 25-HYDROXY 27.5 ng/mL (30-100)
--- NOTE | 2019-07-27 07:55 | NUR ---
DR. TINSLEY NOTIFIED OF POTASSIUM LEVEL.
--- NOTE | 2019-07-27 09:18 | NUR ---
DR. MOYA ON UNIT TO ASSESS PT, UPDATE PROVIDED.
--- NOTE | 2019-07-27 11:51 | NUR ---
P: PT IRRITABLE AND DEMANDING WITH STAFF. PT PREOCCUPIED AND RESISITIVE WITH MEDS. PT ISOLATIVE TO SELF I: PROVIDE EMOTIONAL SUPPORT AND 1:1 FOR PT TO VOICE FEELINGS, ENCOURAGE MED COMPLIANCE AND PROVIDE MED EDUCATION. ENCOURAGE GROUP PARTICIPATION AND SOCIALIZATION R: PT ALERT TO PERSON, PLACE AND TIME. PT MED COMPLIANT WITH ENCOURAGEMENT. PT CALM. PT UP TO A GERICHAIR AND REQUIRES A GRISEL LIFT FOR TRANSFERS. PT INCONTINENT OF BOWEL AND BLADDER, CARE PROVIDED NEEDED. PT PARTICIPATED IN GROUP FOR ABOUT HALF THE TIME. P: PROVIDE EMOTIONAL SUPPORT AND 1:1 FOR PT TO VOICE FEELINGS, ENCOURAGE MED COMPLIANCE AND PROVIDE MED EDUCATION, ENCOURAGE GROUP PARTICIPATION AND SOCIALIZATION, MONITOR PT BEHAVIORS ON Q15 MIN SAFETY CHECKS.
--- NOTE | 2019-07-27 11:56 | NUR ---
AM GROUP/EXERCISE/MUSIC/BINGO PT IN ATTENDANCE AND PARTICIPATED HALF WAY THROUGH GROUP. FIRST HALF PT SLEEPING, BUT AWOKE AND ASKED TO PLAY BINGO RIGHT AWAY. PT REMAINED PLEASANT AND ON TASK AT THIS TIME. PT WILL CONTINUE TO ATTEND AND PARTICIPATE IN FUTURE GROUP SESSIONS.
--- NOTE | 2019-07-27 14:08 | NUR ---
PSYCHOSOCIAL HX COMPLETED THIS DATE.
--- NOTE | 2019-07-27 15:45 | NUR ---
PM GROUP/MUSICAL/CRAFT PT ATENDED AND PARETICIPATED IN ALL GROUP ACTIVITY. PT KEPT TO SELF WITH NO AGITATION EXPRESSED AT THIS TIME. PT WILL CONTINUE TO ATTEND AND PARTICIPATE IN FUTURE GROUP SESSIONS.
[2019-07-27 16:23] VITALS: BP 110/80
[2019-07-27 19:14] LABS: BILIRUBIN NEGATIVE (NEGATIVE); BLOOD NEGATIVE (NEGATIVE); CLARITY CLEAR (CLEAR); COLOR YELLOW (YELLOW); GLUCOSE NEGATIVE (NEGATIVE); KETONE NEGATIVE (NEGATIVE); LEUKO ESTERASE NEGATIVE (NEGATIVE); NITRITE NEGATIVE (NEGATIVE); SPECIFIC GRAVITY 1.025 (1.005-1.030); UROBILINOGEN 0.2 E.U./dl (0.2-1.0)
[2019-07-27 19:27] LABS: BACTERIA 3+; HYALINE CAST 0-2
[2019-07-27 19:37] VITALS: BP 144/80
--- NOTE | 2019-07-28 00:49 | NUR ---
P: DELUSIONAL, SOMATIC, FLIGHT OF IDEAS, POOR SAFETY AWARENESS I: REDIRECT PT NEEDED, DISCUSS REALITY WITH PT IN REFERENCE TO SOMATIC SYMPTOMS, SUCH PT USED CALL LIGHT STATING "MY LEG IS BROKEN AND YOU DO NOTHING" UPON ENTERNG ROOM PT HAS FOOT PULLED UP TO HER BREAST AND IS EXAMINING HER TOES, PT STATED THAT HER LEG HURT FROM BEING BROKEN, ENCOURAGED HER TO RELEASE FOOT AND RELAX EVALUATE ROM, NO BRUISING OR VISUAL ABNORMALITIES NOTED . PT THROWING HER LEGS OUT OF BED, STAFF REPOSITIONED, R: PT CONTINUED TO ATTEMPT TO AMBULATE EVEN THOUGH PT DOES NOT BEAR WEIGHT AND USES GRISEL, PT GOTTEN UP TO CHAIR. PT ALSO CONTINUED TO ACUSE STAFF OF IGNORING BROKEN LIMBS, POISONING HER WATER, PT REQUESTING FREQUENTLY TO BE UP IN CHAIR AN REFUSING TO RETURN TO BED AT THIS TIME. PT IS UP IN LOUNGE P: CONTINUE TO REDIRECT AND REORIENT NEEDED. PT MEDICATION COMPLIANT,
--- NOTE | 2019-07-28 03:39 | NUR ---
PT REMAINS IN GERICHAIR PER REQUEST. OFFERED SEVERAL TIMES TO PLACE PT IN BED AND WAS REFUSED. PT HAS BEEN FALLING ASLEEP BUT AWAKENS HERSELF AFTER A FEW MINUTES
[2019-07-28 07:42] VITALS: BP 136/73
--- NOTE | 2019-07-28 10:56 | NUR ---
DR. MOYA ON UNIT TO ASSESS PT, UPDATE PROVIDED.
--- NOTE | 2019-07-28 11:00 | NUR ---
DR. MOYA UPDATED ON LABS WHEN ON UNIT TO ASSESS PATIENT.
--- NOTE | 2019-07-28 12:25 | NUR ---
AM GROUP/EXERCISE/MUSIC TRIVIA/ART PT ATTENDED AND PARTICIPATED IN ALL GROUP ACTIVITY. PT ASKED FOR A DRINK BUT STATES "WHAT DID YOU PUT IN THIS, THERE IS SOMETHING IN THIS!" THIS STAFF EXPLAINS IT IS JUST GINGERALE, BUT PT INSISTS THERE IS SOMETHING ELSE IN THE DRINK. PT OFFERED OTHER DRINKS BUT JUST CHOSE NOT TO DRINK AT ALL AT THIS TIME.PT ALSO PREOCCUPIED WITH SHOWER BUT EASILY REDIRECTED TO TASK AT HAND. PT WILL CONTINUE TO ATTEND AN DPARTICIPATE IN FUTURE GROUP SESSIONS.
--- NOTE | 2019-07-28 13:43 | NUR ---
PT: PT HAS BEEN CONFUSED AND ARGUMENTIVE AT TIMES WITH STAFF. PT WAS AGITATED WITH STAFF, SHE STATED "SOMEONE IS POISING MY FOOD AND DRINKS." I: PT HAS BEEN 1;1 WITH EDUCATION ON THE IMPORTANCE OF HER MEDS, PT WAS REOEIENTED AND PROVIDED SPACE NEEDED. R: PT TOOK ALL HER MEDICATION AND CONT. TO HAVE INTERMITTENT CONFUSION. PT IS ORIENTENTED TO PERSON AND TIME. IRRITABLE WITH STAFF AT TIMES. PT DENIES ANY HALLUCINATIONS, DELUSIONS, HI/SI OR PAIN. RESPONDING TO INTERNAL STIMULI; CONTINUING TO HAVE PARANOID THOUGHTS, STATING "SOMEONE IS POISING HER FOOD AND DRINKS." PATIENT INTERACTIVE WITH STAFF AND PARTICIPATED IN GROUP SESSION. MOBILITY DEVICES INCLUDE GRISEL LIFT, INCONTIENT, CONTINENT WITH CARES. SET UP FOR MEALS, INTAKES ARE GOOD WITH ADEQUATE FLUIDS. P: CONTINUE TO MONITOR FOR HALLUCINAITONS/DELUSIONS, MOOD AND MEDICATION COMPLAINCE. PROVIDE REORIENTATION, ONE ON ONE WITH ENCOURAGE TO TAKE MEDICATIONS. WILL CONT. TO MONITOR Q 15 MIN. CHECKS PER POLICY FOR SAFETY. I
--- NOTE | 2019-07-28 17:45 | NUR ---
Shift chart check completed.
[2019-07-28 20:00] VITALS: BP 132/76
--- NOTE | 2019-07-28 21:57 | NUR ---
P-CONFUSION, DEMANDING,IRRITABLE I-REDIRECTION WITH 1:1 THERAPEUTIC INTERVENTIONS AND PRESENT REALITY. EDUCATE AND ENCOURAGE MEDICATION COMPLIANCE R-PATIENT MEDICATION COMPLIANT WITH DIFFICULTY. PATIENT ABLE TO MAKE NEEDS KNOWN THROUGHOUT SHIFT. PATIENT PROVIDED FLUID AND NOURISHMENT AT HS. PATIENT DEMANDING WITH NURSING STAFF THROUGHOUT SHIFT. PATIENT TRANSFERRED VIA GRISEL LIFT AND ASSIST X 2. PATIENT WITH OCCASSIONAL HAND TREMORS WHEN ATTEMPTING TO DRINK FLUIDS. PATIENT WITH BILATERAL HEEL PROTECTORS. P-CONTINUE TO ENCOURAGE MEDICATION COMPLIANCE, CONTINUE TO PRESENT REALITY, ENCOURAGE GROUP THERAPY WHILE AWAKE
--- NOTE | 2019-07-29 06:09 | NUR ---
PATIENT SLEPT 5 HOURS OF INTERRUPTED SLEEP THROUGHOUT SHIFT. Q 15 MINUTE CHECKS MAINTAINED. 24 HR chart check completed.
[2019-07-29 07:52] VITALS: BP 131/74
--- NOTE | 2019-07-29 08:17 | NUR ---
Nursing screen received and Occupational Therapy referral received. Thank you. iWnter Carias OTR/L
--- NOTE | 2019-07-29 08:19 | NUR ---
PHYSICAL THERAPY Screen received as well as orders for PT will follow, thank you Linda Dowell PT
--- NOTE | 2019-07-29 09:07 | NUR ---
Treatment Plan meeting was held with Dr. Baeza, FELA Pathak RN, AT and Vp Talent Management. Plan for discharge Monday Next week. Pt. will return to [facility] at discharge.
--- NOTE | 2019-07-29 09:34 | NUR ---
Spoke with Alee in Admissions at [facility]. [facility] and will return at discharge. Clinical Updates faxed to facility [phone].
--- NOTE | 2019-07-29 11:36 | NUR ---
AM GROUP PT WAS PRESENT FOR MORNING GROUP THERAPY SITTING AT A TABLE WITH PEERS. PT CHOSE NOT TO WORK ON A PAPER SHE HAD PREVIOUSLY WORKED ON STATING, "THIS ISN'T MINE" AND "SOMEONE MESSED THIS ALL UP" PT KEPT ASKING, "CAN YOU PUSH ME AWAY FROM THE TABLE SO I CAN BRUSH MY TEETH." ALTHOUGH CONFUSED, PT EXHIBITED NO AGITATION AND WAS EASILY REDIRECTED.
--- NOTE | 2019-07-29 12:38 | NUR ---
P: CONFUSED, ARGUMENTIVE, WITH MEDICATION TODAY. PT WAS ARGUING WITH STAFF THAT SHE DID NOT LIKE HER FOOD AT LUNCH TIME. DURING MED PASS SHE STATED "I WANT A SHOT I DONT WANT MY PILLS." I: PT HAS BEEN 1:1 WITH EDUCATION ON THE IMPORTANTANE OF HER MEDICATIONS. PT WAS REORIENTANTED AND GIVEN TIME TO TAKE ALL HER MEDICATIONS. R: PT TOOK ALL HER MEDICATION WITH LOTS OF ENCOURAGEMENT. PT'S IS STILL BEING ARGUMENTITIVE WITH STAFF IS DINNING AREA. PT REMAINS CONFUSED, MEMORY DEFICITS, SHE IS ALERT AND ORIENTED TO SELF. PT IS IRRITABLE AND DEMANDING WITH STAFF. DENIES ANY HALLUCINATIONS/DELUSIONS, HI/SI OR PAIN. NO VOICED STATEMENT OF HI/SI, OR RESPONDING TO INTERNAL STIMULI. MOBILITY DEVICES NEEDED ARE A HOYE LIFT, PT IS INCONTINENT. PT HAS PARTICIPATED IN GROUP SESSIONS, SET UP FOR MEALS,INTAKE IS GOOD WITH ADEQUATE FLUIDS. P: PROVIDE REORIENTATION, 1:1 WITH MUCH ENCOURAGEMENT TO TAKE MEDICATIONS. CONTINUE TO MONITOR FOR SIGNS OF HALLUCINAITIONS/DELUSIONS, WILL CONT. TO MONITOR Q 15 MIN. CHECKS PER POLICY FOR SAFETY. I: R: P:
--- NOTE | 2019-07-29 15:34 | NUR ---
PM GROUP PT WAS PRESENT FOR AFTERNOON GROUP THERAPY RECLINED IN A BARBARA CHAIR SLEEPING. PT DID NOT WAKE DURING GROUP.
[2019-07-29 19:12] VITALS: BP 125/75
--- NOTE | 2019-07-29 20:27 | NUR ---
EVENING GROUP PT DID NOT ATTEND GROUP DUE TO SLEEPING IN BED AT THIS TIME. PT WILL CONTINUE TO BE ENCOURAGED TO ATTEND AND PARTICIPATE IN FUTURE GROUP SESSIONS.
--- NOTE | 2019-07-29 21:53 | NUR ---
P---DEPRESSION, BEHAVIORS, IRRITABILITY, ARGUMENTATIVE I--REVIEWED ALL MEDICATIONS AND PROVIDED THEM. ATTEMPTED TO DO 1:1 WITHOUT SUCCESS. REDIRECTED TO TIME AND PLACE. EMOTIONAL SUPPORT PROVIDED. R--YOU'RE NEW, WHAT ARE THOSE MEDICATIONS. NO I'M NOT TALKING WITH YOU. ATTEMPTED TO SPIT OUT MEDICATIONS BUT DID SWALLOW AFTER MUCH ENCOURAGEMENT. REFUSED TO GET UP FOR SNACK. TAKING PO FLUIDS P--MONITOR FOR CHANGES IN BEHAVIOR/MOOD AND SAFETY. REDIRECT WHEN NEEDED, EMOTIONAL SUPPORT WHEN NEEDED.
--- NOTE | 2019-07-30 05:40 | NUR ---
HAS BEEN AWAKE ALL NIGHT. WAS LAYED DOWN AFTER DINNER LAST NIGHT AND SHE REFUSED TO GET UP FOR SNACK. SLEPT LESS THAN 1 HOUR 24 HR chart check completed.
--- NOTE | 2019-07-30 05:55 | NUR ---
UP DRESSED, AM CARE COMPLETED. IN DININGROOM
[2019-07-30 07:50] VITALS: BP 135/79
--- NOTE | 2019-07-30 08:15 | NUR ---
Treatment Plan meeting was held with Dr. Baeza, FLEA Pathak, RN, AT, CALENDER WORKER HELPER-S and Md Physician Dermatologist in attendance. Plan for discharge Monday. Pt. will return to [facility] at discharge.
--- NOTE | 2019-07-30 10:45 | NUR ---
ZETIA 10MG NOT SCANNING. STATING IT IS NOT ON THE PATIENTS EMAR. CONTACTED PHARMACY TO CORRECT THE ISSUE. NOT CORRECTED AT THIS TIME. MEDICATION MANUALLY MARKED AND GIVEN TO PATIENT. DIRECTOR MADE AWARE.
--- NOTE | 2019-07-30 11:20 | NUR ---
Occupational therapy orders received and OT evaluation completed in full on floor three. Per chart review and discussion with patient, patient is dependent of dressing, toileting, bathing, and transfers at baseline. Patient is able to complete light grooming tasks and don/doff socks with modified independence. At baseline, patient uses weighted utensils secondary to her bilateral UE tremor. OT trialed red, foam built up utensils with the patient and patient demonstrated a good understanding of utensil edu and use. Nursing edu on utensils, and the two foam encapsulator were given to the nursing staff for future meals. No further OT indicated at this time. Thank you for the referral. Lona Zaarte, OTR/L
--- NOTE | 2019-07-30 11:31 | NUR ---
AM GROUP/EXERCISE AND GAMES PT DID NOT ATTEND MORNING GROUP THERAPY. PT WAS IN BED RESTING.
--- NOTE | 2019-07-30 15:30 | NUR ---
PM GROUP/KELVIN PT ATTENDED AND PARTICIPATED IN AFTERNOON GROUP THERAPY. PT WAS FOCUSED AND ON TASK. PT EXPRESSED NO DELUSIONAL IDEATIONS NOR EXHIBITED ANY AGITATION WHILE IN GROUP
--- NOTE | 2019-07-30 17:54 | NUR ---
MEDICATION COMPLIANT. ALERT TO PERSON. NO ADVERSE MOODS OR BEHAVIORS NOTED. CLARIFIED INVEGA ORDER. PT IS TO RECEIVE INVEGS 156 MG IM ON 08-15-19. BEHAVIORS MONITORED WITH Q15 MINUTE SAFETY CHECKS. SEE [facility] FLOWSHEET FOR SPECIFIC MONITORING.
[2019-07-30 20:00] VITALS: BP 110/67
--- NOTE | 2019-07-30 21:24 | NUR ---
UP IN BARBARA CHAIR IN DININGROOM. INTERACTING WELL WITH PEERS. SNACK PROVIDED. MEDICATIONS REVIEWED PRIOR TO GIVING. MEDICATION COMPLIANT. MOVES SELF AROUND IN THE CHAIR. LEGS UP. STATES HAD A GOOD BUSY DAY PLAYING GAMES. DENIES ANY ISSUES AT THIS TIME. EMOTIONAL SUPPORT PROVIDED. WILL CONTINUE TO MONITOR FOR CHANGES IN MOOD/BEHAVIOR. MONITOR Q15 MINUTES AND PRN THROUGH OUT SHIFT.
--- NOTE | 2019-07-31 02:05 | NUR ---
24 HR chart check completed.
[2019-07-31 08:14] VITALS: BP 123/77
--- NOTE | 2019-07-31 08:15 | NUR ---
Treatment Plan meeting was held with Dr. Baeza, FELA Pathak, RN, AT, MAKEUP ARTISTRY INSTRUCTOR-S and Frame Nailer in attendance. Plan for discharge Monday. Pt. will return to [facility] at Discharge.
--- NOTE | 2019-07-31 11:34 | NUR ---
AM GROUP PT ATTENDED AND PARTICIPATED IN ALL MORNING GROUP ACTIVITIES. PT WAS QUIET AND ON TASK. PT EXPRESSED NO DELUSIONAL IDEATIONS NOR EXHIBITED ANY AGITATION WHILE IN GROUP
--- NOTE | 2019-07-31 15:34 | NUR ---
PM GROUP/TRUDI FREDERICK PT ATTENDED AND PARTICIPATED IN ALL AFTERNOON GROUP THERAPY. PT WAS QUIET AND ON TASK. PT EXPRESSED NO DELUSIONS WHILE IN GROUP.
--- NOTE | 2019-07-31 19:55 | NUR ---
PATIENT IS ALERT TO PERSON, PLACE, TIME AND SITUATION;ABLE TO VOICE NEEDS. MEMORY DEFICITS NOTED. MOOD IS STABLE. DENIES ANY HALLUCINATIONS, DELUSIONS,HI/SI OR PAIN. MEDICAITON COMPLAINT WITHOUT DIFFICULTY. Q 15 MINUTE SAFETY CHECKS MAINTAINED. 2 PERSON ASSIST WITH ACTIVITIES OF DAILY LIVING, INCONTINENT OF BOWEL AND BLADDER. SET UP FOR MEALS, INTAKES ARE GOOD WITH ADEQUATE FLUIDS. INTERACTIVE WITH STAFF AND OTHER PATIENTS. PARTICIPATES IN GROUP SESSION. CONTINUE TO MONTIOR FOR AGGRESSION AND MEDICAITON COMPLAINCE; PROVIDE ONE ON ONE AND REDIRECTION NEEDED.
[2019-07-31 20:00] VITALS: BP 120/76
--- NOTE | 2019-07-31 21:56 | NUR ---
PT STATES SHE IS FEELING BETTER, BUT THAT SHE IS READY TO "GET OUT OF HERE". PT ENCOURAGED TO EXPRESS FEELINGS, EMOTIONAL SUPPORT, 1:1. STATES "I DON'T KNOW, I FEEL BETTER I GUESS. I AM READY TO GO AND I WANT TO TALK TO ONE OF MY CHILDREN TOMORROW ON THE PHONE". PT EDUCATED ON MEDICATIONS, COMPLIANT WITH EXCEPTION OF ROZEREM WHICH PT STATES SHE DOES NOT WANT TO TAKE. PT ENCOURAGED TO TAKE WITHOUT SUCCESS. WILL CONTINUE TO ENCOURAGE MEDICATION COMPLIANCE. WILL CONTINUE TO ENCOURAGE PT TO VERBALIZE THOUGHTS AND FEELINGS. WILL PROVIDE EMOTIONAL SUPPORT APPROPRIATE. WILL CONTINUE Q15 MIN MONITORING PER POLICY FOR SAFETY.
--- NOTE | 2019-07-31 22:17 | NUR ---
MILK OF MAGNESIA GIVEN AT THIS TIME PER ORDER FOR CONSTIPATION. BOWEL SOUNDS ACTIVE X 4. ABDOMEN SOFT, NONTENDER.
--- NOTE | 2019-08-01 07:16 | NUR ---
PT SLEPT 6 HOURS INTERRUPTED
[2019-08-01 07:37] VITALS: BP 111/60
--- NOTE | 2019-08-01 08:15 | NUR ---
Treatment Plan meeting was held with Dr. Baeza, RN, AT, PROFESSIONAL ADVISOR-S and Bankruptcy Attorney in attendance. Plan for discharge Monday. Pt. will return to [facility] at discharge.
--- NOTE | 2019-08-01 11:38 | NUR ---
AM GROUP AM GROUP WAS SHORT DUE TO NEW PT ASSESSMENTS. PT WAS PRESENT AND WAS WATCHING A MOVIE QUIETLY.
--- NOTE | 2019-08-01 14:30 | NUR ---
PHYSICAL THERAPY Yoselin completed moderate level of complexity 61130 eval only at this time pt has a LLE brace which is at her facility she is only able to stand/pivot be weightbearing with it on. Recomend cont earl lift to chair for OOB daily ROM of LE with care. Please see yoselin for full assessment. Linda Dowell PT
--- NOTE | 2019-08-01 15:42 | NUR ---
PM GROUP PT ATTENDED AFTERNOON GROUP THERAPY AND PARTICIPATED BY READING A MAGAZINE AND LISTENING TO MUSIC. PT EXPRESSED NO DELUSIONAL IDEATIONS WHILE IN GROUP.
[2019-08-01 20:10] VITALS: BP 118/58
[2019-08-01 21:02] VITALS: BP 128/84
--- NOTE | 2019-08-02 02:14 | NUR ---
NO ADVERSE BEHAVIORS NOTED. PT ALERT TO PERSON, CONFUSED. PT CALM, COOPERATIVE, ISOLATIVE TO SELF. PT MEDICATION COMPLIANT WITHOUT DIFFICULTY, UNABLE TO EDUCATE DUE TO COGNITION. PT DENIES SI/HI AND HALLUCINATIONS. NO NOTED RESPONDING TO INTERNAL STIMULI. NO PARANOIA/DELUSIONS NOTED. PT RECEIVED PRN TYLENOL 650MG AT 2220 FOR C/O BACK PAIN WITH A RATING OF 10/10, PRN EFFECTIVE PER PATIENT. PT ALSO RECEIVED PRN MOM 30ML AT 2345 DUE TO LAST BM NOTED ON 07/25/19, BOWEL SOUNDS X4, MONITORING FOR EFFECTIVENESS. NO OTHER PHYSICAL COMPLAINTS NOTED. PT COMPLIANT WITH HOC, ABLE TO VOICE NEEDS, INCONTINENT OF BOWEL AND BLADDER. PT RESTING QUIETLY WITH EYES CLOSED, RESPIRATIONS EASY AND REGULAR, NO SIGNS OR SYMPTOMS OF DISTRESS NOTED. PLAN IS TO CONTINUE TO MONITOR MOODS AND BEHAVIORS. PROVIDE 1:1 WITH THERAPEUTIC INTERVENTIONS. ENCOURAGE MEDICATION COMPLIANCE AND EDUCATE. MAINTAIN Q 15 MIN CHECKS.
--- NOTE | 2019-08-02 05:39 | NUR ---
24 HOUR CHART CHECK COMPLETED.
--- NOTE | 2019-08-02 06:05 | NUR ---
PATIENT SLEPT APPROX 2 HOURS INTERRUPTED THIS SHIFT.
[2019-08-02 08:00] VITALS: BP 140/82
--- NOTE | 2019-08-02 08:15 | NUR ---
Treatment Plan meeting was held with FELA Pathak, RN, AT, CURRICULUM DEVELOPMENT COORDINATOR-S and Plate Painter in attendance. Plan for discharge Monday. Pt. to return to [facility].
--- NOTE | 2019-08-02 10:28 | NUR ---
ON UNIT TO SEE PT AT THIS TIME.
--- NOTE | 2019-08-02 11:45 | NUR ---
AM GROUP PT DID NOT ATTEND MORNING GROUP THERAPY. PT WAS IN BED RESTING.
--- NOTE | 2019-08-02 15:37 | NUR ---
PM GROUP/MOVIE PT DID NOT ATTEND AFTERNOON GROUP THERAPY. PT WAS IN BED RESTING.
--- NOTE | 2019-08-02 16:39 | NUR ---
NO ADVERSE MOODS OR BEHAVIORS THIS SHIFT. PT IS ALERT AND ORIENTED X3. MILD MEMORY GAPS NOTED. RESPS EASY AND EVEN ON ROOM AIR. MOOD APPEAR STABLE WITH APPROPRIATE AFFECT. SPEECH IS SLOW, COHERENT, ABLE TO MAKE NEEDS KNOWN WITHOUT DIFFICULTY. PT DENIES SI/HI, INTENT OR PLAN. PT DENIES HALLUCINATIONS, NO RESPONSE TO INTERNAL STIMULI NOTED. NO PARANOIA OR DELUSIONS NOTED. PT IS CALM AND COOPERATIVE. NO AGGRESSIVE BEHAVIORS DISPLAYED. PT MED COMPLIANT THIS AM WITH EXCEPTION OF COLACE. PT STATES SHE DOESN'T NEED IT. PT STATES HER BOWELS HAVEN'T MOVED YET BUT SHE FEELS THEY ARE GOING TO. PT REQUESTED AND WAS GIVEN PRUNE JUICE THIS AFTERNOON. PT IS PASSING GAS. +BSX4. WILL CONT TO MONITOR. NO DISTRESS NOTED. PLAN TO CONTINUE CURRENT TREATMENT, CONTINUE TO MONITOR MOOD AND BEHAVIORS, PROVIDE APPROPRIATE REORIENTATION, REDIRECTION AND 1:1 NEEDED. CONTINUE TO ENCOURAGE MEDICATION COMPLIANCE WELL GROUP ATTENDANCE AND PARTICIPATION.
--- NOTE | 2019-08-02 18:57 | NUR ---
PRN TYLENOL 650MG PO GIVEN AT THIS TIME PER PT REQUEST FOR C/O BACK PAIN RATED LEVEL 10/10 ON PAIN SCALE. PT STATES "OH HONEY, I HAVE A PINCHED NERVE". WILL MONITOR FOR MEDICATION EFFECTIVENESS.
[2019-08-02 20:00] VITALS: BP 146/84
--- NOTE | 2019-08-02 21:21 | NUR ---
Patient alert to self with confusion noted. Memory deficits noted. Patient denies SI/HI at this time. No overt signs of responding to internal stimuli noted. Patient isolative to self in diningroom. Mood calm and cooperative at this time. Patient compliant with HS medications without any difficulty. Patient pleasant and cooperative with HOC. Provided 1:1 for therapeutic communication and emotional support. Redirected/reoriented when needed/appropriate. Plan to continue to encourage medication compliance and continue to provide emotional support. Continue to redirect/reorient when needed/appropriate. Also continue to monitor moods/behaviors. Q 15 minute safety checks continued and maintained. See [facility] flowsheet for further documentation.
--- NOTE | 2019-08-03 00:29 | NUR ---
24 HR chart check completed.
--- NOTE | 2019-08-03 05:52 | NUR ---
Patient slept approx. 5 hours throughout shift with a few awakenings. Q 15 minute safety checks continued and maintained.
[2019-08-03 07:25] LABS: ALBUMIN 3.2 gm/dl (3.1-4.5); ALKALINE PHOSPHATASE 125 U/L (45-117); BUN 32 mg/dl (7-24); CHLORIDE 107 mmol/L (98-107); CREATININE 0.93 mg/dL (0.55-1.02); POTASSIUM 4.4 mmol/L (3.5-5.1); SGOT/AST 15 IU/L (3-35); SGPT/ALT 22 U/L (12-78); SODIUM 139 mmol/L (136-145); TOTAL PROTEIN 6.5 gm/dL (6.4-8.2)
[2019-08-03 07:57] VITALS: BP 135/82
--- NOTE | 2019-08-03 10:00 | NUR ---
[facility] TO SEE PT AT THIS TIME, UPDATE GIVEN.
--- NOTE | 2019-08-03 11:54 | NUR ---
RETAIL CLIENT SOLUTIONS ANALYST FROM [facility] ON UNIT TO SEE PT AT THIS TIME.
--- NOTE | 2019-08-03 12:03 | NUR ---
NO ADVERSE MOODS OR BEHAVIORS THUS FAR IN THE SHIFT. PT IS ALERT AND ORIENTED X3. MILD MEMORY GAPS NOTED. RESPS EASY AND EVEN ON ROOM AIR. MOOD APPEARS STABLE WITH APPROPRIATE AFFECT. SPEECH IS SLOW, COHERENT, ABLE TO MAKE NEEDS KNOWN WITHOUT DIFFICULTY. PT DENIES SI/HI, INTENT OR PLAN. PT DENIES HALLUCINATIONS, NO RESPONSE TO INTERNAL STIMULI NOTED. NO PARANOIA OR DELUSIONS NOTED. PT IS CALM AND COOPERATIVE. NO AGGRESSIVE BEHAVIORS DISPLAYED. PT STATES SHE IS FEELING "MUCH BETTER" THAN SHE WAS UPON ADMISSION. NO DISTRESS NOTED. PLAN TO CONTINUE CURRENT TREATMENT, CONTINUE TO MONITOR MOOD AND BEHAVIORS, PROVIDE APPROPRIATE REORIENTATION, REDIRECTION AND 1:1 NEEDED. CONTINUE TO ENCOURAGE MEDICATION COMPLIANCE WELL GROUP ATTENDANCE AND PARTICIPATION.
--- NOTE | 2019-08-03 12:09 | NUR ---
AM GROUP/LEISURE SKILLS PT IN ATTENDANCE AND PARTICIPATED TO BEST OF ABILITY. PT RELAXING LISTENING TO COUNTRY MUSIC. PT PLEASANT ENTIRE GROUP WITH NO AGITATION, DELUSIONS, OR CONFUSION EXPRESSED AT THIS TIME. PT WILL CONTINEU TO ATTEND AND PARTICIPATE IN FUTURE GROUP ACTIVITY'S TO BEST OF PT ABILITY.
--- NOTE | 2019-08-03 15:49 | NUR ---
PM GROUP/BINGO! PT ATTENDED AND PARTICIPATED IN GROUP WITH NO DELSUIONS OR AGITATION EXPRESSED. PT WILL CONTINUE TO ATTEND AN DPARTICIPATE IN FUTURE GROUP SESSIONS.
[2019-08-03 20:00] VITALS: BP 122/83
--- NOTE | 2019-08-03 20:38 | NUR ---
24 HR chart check completed.
--- NOTE | 2019-08-03 23:16 | NUR ---
PT SAT QUIETLY IN THE DINING ROOM IN A WHEELCHAIR THIS EVENING KEEPING TO HERSELF. ALERT & ORIENTED TO PERSON, PLACE & TIME. LIMITED CONVERSATION BUT APPROPRIATE. ATE SNACK. COMPLIANT WITH MEDICATIONS. DID REFUSE COLACE. 2 STAFF ASSISTS TO BED.
--- NOTE | 2019-08-04 06:06 | NUR ---
PT SLEPT FROM [id number]. NAPPING INTERMITTENTLY THROUGHOUT THE NIGHT. HAS C/O BACK PAIN & REQUESTED TYLENOL. RATED PAIN 10/10. WHEN PT WAS OFFERED TYLENOL IN A CUP, SHE STATED, "THAT DOESNT LOOK LIKE TYLENOL. I DON'T WANT IT. I'M GONNA THINK ABOUT IT". PT DROWSY AT THIS TIME & STATED THIS WITH HER CLOSED.
[2019-08-04 07:56] VITALS: BP 131/82
--- NOTE | 2019-08-04 10:08 | NUR ---
DR. LOAIZA ON UNIT TO ASSESS PATIENT.
--- NOTE | 2019-08-04 14:15 | NUR ---
P: RAISING HAND IN AIR IN DINING ROOM. SELF PROPELLING IN HALLWAY YELLING OUT FOR GERALD. PATIENT DENIES ANY HALLUCINATIONS OR DELUSIONS. I: ONE ON ONE AND REDIRECTION PROVIDED. R: EFFECTIVE. PATIENT IS ALERT TO PERSON, PLACE, TIME AND SITUATION WITH INTERMITTANT CONFUSION. MOOD IS STABLE, CALM DEMEANOR. DENIES ANY HALLUCINATIONS, DELUSIONS, HI/SI OR PAIN. RESPONDING TO INTERNAL STIMULI. MEDICATION COMPLIANT. Q 15 MINUTE SAFETY CHECKS MAINTAINED. 2 PERSON ASSIST WITH ACTIVITIES OF DAILY LIVING, CONTINENT OF BOWEL AND BLADDER WITH INCONTINENT EPISODES NOTED. SET UP FOR MEALS. INTAKES ARE GOOD WITH ADEQUATE FLUIDS. INTEREACTIVE WITH STAFF. P: CONTINUE TO MONITOR MOOD, EXIT SEEKING AND MEDICATION COMPLAINCE. PROVIDE ONE ON ONE AND REDIRECTION NEEDED.
--- NOTE | 2019-08-04 16:44 | NUR ---
Shift chart check completed.
--- NOTE | 2019-08-04 19:26 | NUR ---
24 HR chart check completed.
[2019-08-04 19:58] VITALS: BP 130/86
--- NOTE | 2019-08-04 21:52 | NUR ---
P-CONFUSED, DELUSIONAL, PARANOID, NON COMPLIANT WITH MEDICATIONS I-SELF PROPELLED IN A WHEEL CHAIR SLOWLY FROM DINING ROOM & THROUGHOUT THE HALLWAY. HAS KEPT TO HERSELF. ALERT TO PERSON, PLACE & TIME WITH MEMORY DEFICITS. STATED SHE FEELS GOOD BUT IS INCONGRUENT WITH APPEARANCE OF SAD FACIES WITH FLAT AFFECT. HAS VOICED SOME GRANDIOSE & PARANOID DELUSIONS THIS EVENING & IS UNRECEPTIVE TO PRESENTATION OF REALITY. IS VERY HESITANT & LIMITED WITH VERBAL RESPONSES. WHEELED PAST RED LINE IN HALLWAY & HAD TO BE REDIRECTED X2. REMINDED THAT SHE IS NOT TO GO PAST THE RED LINE & SHE STATED, "I KNOW BUT I HAVE TO GET AN OPERATION". ......"I'M .......HAD TO HAVE MY TUBES REATTACHED". HAS REFUSED ALL HS MEDICATIONS. LATER ASK MILIEU FOR HER MEDS & WAS REMINDED THAT SHE HAD ALREADY REFUSED ONCE BUT [facility]U WOULD INFORM RN AGAIN. PT STATED, "SHE PUT ARSENIC IN IT". RN OFFERED MEDS AGAIN & PT AGAIN REFUSED. REFUSED SNACK. 2 STAFF ASSISTS TO BED. P-CONTINUE TO MONITOR & PROVIDE PHYSICAL ASSISTANCE & EMOTIONAL SUPPORT NEEDED.
--- NOTE | 2019-08-05 05:55 | NUR ---
PT HAS RESTED IN BED ALL NIGHT LONG WITHOUT SLEEPING.
[2019-08-05 07:48] VITALS: BP 138/71
--- NOTE | 2019-08-05 08:15 | NUR ---
Treatment Plan meeting was held with Dr. Baeza, FELA Pathak, RN, AT, ASSOCIATION EXECUTIVE-S and Dry Folder Cloth in attendance. Plan for discharge Monday/Monday with return to [facility].
--- NOTE | 2019-08-05 10:58 | NUR ---
When walking into [facility] earlier, met pt in her wheelchair at the door. Pt stated, "You can't come in this door." Attempted to redirect pt away from the door. Pt did not want to move. Pt then tried to open the door. Pt stated that her people were outside of the door and that she had to get to them. Informed pt that this teletypewriter installer was just outside of door and there were not people out there. Confirmed to pt that this teletypewriter installer would let pt know when her family arrived. Pt appeared satisfied and turned herself away from the door and began propelling herself down the moon toward the nurse's station.
--- NOTE | 2019-08-05 11:48 | NUR ---
AM GROUP PT WAS PRESENT FOR MORNING GROUP THERAPY BUT WAS UNABLE TO PARTICIPATE. PT SAT AT TABLE WITH PEERS WITH WORK IN FRONT OF HER BUT SAT AND STARED, WAS NOTED TO BE SPEAKING TO UNSEEN OTHERS AND UNAWARE OF WHAT WAS GOING ON AROUND HER. PT WAS NOTED TO HAVE HAND TREMORS ALSO.
--- NOTE | 2019-08-05 15:38 | NUR ---
PM GROUP PT WAS PRESENT FOR AFTERNOON GROUP THERAPY BUT WAS UNABLE TO PARTICIPATE DUE TO COGNITIVE IMPAIRMENT. PT WAS EXHIBITING VISUAL HALLUCINATIONS.
--- NOTE | 2019-08-05 19:34 | NUR ---
P: REFUSING MEDICAITONS, VOICING PARANOID THOUGHTS, STATING "THAT IS RAT POISON", ATTEMPTING TO EXIT SEEK. SELF PROPELING TO DOOR WAY TRYING TO OPEN THE DOOR. IRRITABLE MOOD. I: ONE ON ONE, REDIRECTION AND ORIENTATION PROVIDED. R: EFFECTIVE WITH EXIT SEEKING. PATIENT CONTINUES TO REFUSE MEDICAITON WITH MUCH ENCOURAGEMENT AND EDUCATION PROVIDED. MOOD IS IRRITABLE AND ANGRY. RESPONDING TO INTERNAL STIMULI. PATIENT IS ALERT TO PERSON WITH CONFUSION; ABLE TO VOICE NEED. Q 15 MINUTE SAFETY CHECKS MAINTAINED. 2 PERSON ASSIST WITH ACTIVITIES OF DAILY LIVING, INCONTINENT OF BOWEL AND BLADDER. SET UP FOR MEALS, INTAKES ARE GOOD WITH ADEQUATE FLUIDS. INTERACTIVE WITH STAFF AND PARTICIPATES IN GROUP SESSION. P: CONITNUE TO MONITOR FOR HALLUCINATIONS, DELLUSIONS, AGGRESSION AND MEDICATION COMPLIANCE. PROVIDE ONE ON ONE, REDIRECTION/ORIENTATION AND ENCOURAGE PATIENT TO TAKE MEDICATIONS.
[2019-08-05 19:53] VITALS: BP 142/73
--- NOTE | 2019-08-05 20:50 | NUR ---
EVENING/LEISURE SKILLS PT RESTING AT THIS TIME IN BED.
--- NOTE | 2019-08-05 23:30 | NUR ---
24 HR chart check completed.
--- NOTE | 2019-08-06 00:30 | NUR ---
P-CONFUSED, NON COMPLIANT WITH MEDICATIONS I-PT HAS BEEN LAYING IN BED SINCE THE ONSET OF THE SHIFT. CONFUSED WITH INCREASED THOUGHT BLOCKING THAN PREVIOUS NIGHT. ALERT TO PERSON ONLY & IS VERY HESITANT & LIMITED WITH VERBAL RESPONSES. MEMORY DEFICITS. SAD FACIES WITH FLAT AFFECT. DOES MAKE EYE CONTACT WITH A STARING GAZE. NO DELUSIONS VOICED. DID NOT RESPOND VERBALLY WHEN QUESTIONED ABOUT SENSORY DISTURBANCE BUT AUDITORY HALLUCINATIONS ARE SUSPECTED BY BEHAVIORS. APPEARANCE IS DISHELVED. REFUSED SNACK, FLUIDS & HS MEDICATIONS. 2 STAFF ASSISTS TO BED. INCONTINENT OF URINE. NOTED TO HAVE MILD TO MODERATE HAND TREMORS INTERMITTENTLY. P-CONTINUE TO MONITOR & PROVIDE PHYSICAL ASSISTANCE & EMOTIONAL SUPPORT NEEDED.
--- NOTE | 2019-08-06 06:39 | NUR ---
PT SLEPT FROM [id number]
[2019-08-06 08:00] VITALS: BP 120/81
--- NOTE | 2019-08-06 08:00 | NUR ---
Treatment Plan meeting was held with Dr. Baeza, FELA Pathak, RN, AT, RESEARCH & ANALYTICS MANAGER-S and School Athletic Director in attendance. Plan for discharge Monday with return to [place].
--- NOTE | 2019-08-06 08:46 | NUR ---
ON UNIT TO SEE PT AT THIS TIME. MADE AWARE PT REFUSING MEDS.
--- NOTE | 2019-08-06 08:48 | NUR ---
AND JEWEL PMHNP-BC ON UNIT TO SEE PT AT THIS TIME. UPDATE GIVEN.
--- NOTE | 2019-08-06 11:06 | NUR ---
Left a voicemail message for pt's /[facility] requesting a return call.
--- NOTE | 2019-08-06 11:37 | NUR ---
AM GROUP PT DID NOT ATTEND MORNING GROUP THERAPY. PT WAS IN BED RESTING.
--- NOTE | 2019-08-06 15:38 | NUR ---
PM GROUP PT WAS PRESENT FOR AFTERNOON GROUP THERAPY BUT IS UNABLE TO PARTICIPATE AT THIS TIME DUE TO COGNITIVE IMPAIRMENT. PT ASKED AT ONE TIME, "HONEY, CAN I GO TO BED IN THE DINOSAUR?"
--- NOTE | 2019-08-06 18:52 | NUR ---
P- CONFUSION, SLOW PROCESSING I- ORIENTATION, MOOD AND BEHAVIOR ASSESSED. ASSESSED PT FOR SI/HI, INTENT OR PLAN. ASSESSED PT FOR S/S HALLUCINATIONS, PARANOIA AND/OR DELUSIONS. MEDICATIONS ADMINISTERED PER PHYSICIAN'S ORDERS. ASSISTANCE WITH ADL CARE PROVIDED NEEDED. ENCOURAGED PT TO ATTEND AND PARTICIPATE IN [employer] MILIEU GROUPS AND ACTIVITIES. R- PT IS ALERT AND ORIENTED TO PERSON, APPROXIMATE PLACE AND TIME. CONFUSION NOTED. RESPS EASY AND EVEN ON ROOM AIR. MEMORY GAPS NOTED. MOOD STABLE THIS SHIFT, AFFECT FLAT. SPEECH IS SLOW, COHERENT, SLOW PROCESSING NOTED. PT IS ABLE TO MAKE NEEDS KNOWN WITHOUT DIFFICULTY. PT DENIES SI/HI, INTENT OR PLAN. PT DENIES HALLUCINATIONS, NO RESPONSE TO INTERNAL STIMULI NOTED. NO PARANOID DELUSIONS VOICED. NO HALLUCINATIONS NOTED. MED COMPLIANT THIS DATE WITHOUT DIFFICULTY. NO DISTRESS NOTED. P- PLAN TO CONTINUE CURRENT TREATMENT, CONTINUE TO MONITOR MOOD AND BEHAVIORS, PROVIDE APPROPRIATE REORIENTATION, REDIRECTION AND 1:1 NEEDED. CONTINUE TO ENCOURAGE MED COMPLIANCE WELL GROUP ATTENDANCE AND PARTICIPATION.
[2019-08-06 20:00] VITALS: BP 111/81
--- NOTE | 2019-08-06 20:39 | NUR ---
EVENING/BINGO PT ATTENDED AND PARTICIPATED IN GROUP PLAYING Toutiao. PT WOULD FALL ASLEEP TO SOON WAKE UP AND RE JOIN ACTIVITY. PT EXPRESSED NO HALLUCINATIONS OR DELUSIONS AND WILL CONTINEU TO ATTEND AND PARTICIPATE IN FUTURE GROUP SESSIONS TO BEST OF PT ABILITY.
--- NOTE | 2019-08-06 21:00 | NUR ---
24 HR chart check completed.
--- NOTE | 2019-08-07 00:32 | NUR ---
P-DEPRESSED, MEMORY DEFICITS I-ASSESS ORIENTATION, ENCOURAGE VENTILATION OF FEELINGS. ADMINISTER MEDICATIONS, MONITOR SLEEP R-PT SAT IN THE DINING ROOM IN A BARBARA CHAIR QUIETLY WATCHING TV. ATE SNACK INDEPENDENTLY. ALERT TO PERSON, PLACE. AWARE OF HER SURROUNDINGS. MORE CO-OPERATIVE. SPEECH HAS IMPROVED. ANSWERING QUESTIONS. RECEIVED A SHOWER WITH 2 STAFF ASSISTS. NO DELUSIONS VOICED. INCONTINENT OF URINE. NOTED TO HAVE MILD TO MODERATE HAND TREMORS INTERMITTENTLY. COMPLIANT TAKING MEDICATIONS WHOLE P-CONTINUE TO MONITOR & PROVIDE PHYSICAL ASSISTANCE & EMOTIONAL SUPPORT NEEDED.
--- NOTE | 2019-08-07 05:52 | NUR ---
PT HAS SLEPT PAST 2300. WAS SHOWERED BEFORE GOING TO BED.
[2019-08-07 08:00] VITALS: BP 108/51
--- NOTE | 2019-08-07 08:00 | NUR ---
Treatment Plan Meeting was held with Dr. Baeza, FELA Pathak, RN, AT, BLENDING TECHNICIAN-S and Stuffer in attendance. Plan for discharge . Pt. will return to [facility].
--- NOTE | 2019-08-07 08:47 | NUR ---
AND JEWEL PMHNP-BC ON UNIT TO SEE PT AT THIS TIME. UPDATE GIVEN.
--- NOTE | 2019-08-07 08:47 | NUR ---
ON UNIT TO SEE PT AT THIS TIME. UPDATE GIVEN.
--- NOTE | 2019-08-07 11:57 | NUR ---
AM GROUP PT ATTENDED MORNING GROUP THERAPY AND PARTICIPATED IN ALL ACTIVITIES. PT EXPRESSED NO HALLUCINATIONS WHILE IN GROUP. PT WAS QUIET AND ON TASK.
--- NOTE | 2019-08-07 13:44 | NUR ---
BLUE GEL EXTERNAL ANALGESIC CREAM APPLIED PER PT REQUEST FOR C/O BACK PAIN. WILL MONITOR FOR MED EFFECTIVENESS.
--- NOTE | 2019-08-07 15:58 | NUR ---
Clinical Updates faxed to [facility] Attn: Alee [phone]. Provided with updates and discussed plan to discharge .
--- NOTE | 2019-08-07 16:13 | NUR ---
P- CONFUSION, SLOW PROCESSING I- ORIENTATION, MOOD AND BEHAVIOR ASSESSED. ASSESSED PT FOR SI/HI, INTENT OR PLAN. ASSESSED PT FOR S/S HALLUCINATIONS, PARANOIA AND/OR DELUSIONS. MEDICATIONS ADMINISTERED PER PHYSICIAN'S ORDERS. ASSISTANCE WITH ADL CARE PROVIDED NEEDED. ENCOURAGED PT TO ATTEND AND PARTICIPATE IN ARMSTRONG MILIEU GROUPS AND ACTIVITIES. R- PT IS ALERT AND ORIENTED TO PERSON, APPROXIMATE PLACE AND TIME. CONFUSION NOTED. RESPS EASY AND EVEN ON ROOM AIR. MEMORY GAPS NOTED. MOOD STABLE THIS SHIFT, AFFECT FLAT. SPEECH IS SLOW, COHERENT, SLOW PROCESSING NOTED. PT IS ABLE TO MAKE NEEDS KNOWN WITHOUT DIFFICULTY. PT DENIES SI/HI, INTENT OR PLAN. PT DENIES HALLUCINATIONS, NO RESPONSE TO INTERNAL STIMULI NOTED. NO PARANOIA OR DELUSIONAL THOUGHTS VOICED. NO HALLUCINATIONS NOTED. MED COMPLIANT THIS DATE WITHOUT DIFFICULTY. NO DISTRESS NOTED. P- PLAN TO CONTINUE CURRENT TREATMENT, CONTINUE TO MONITOR MOOD AND BEHAVIORS, PROVIDE APPROPRIATE REORIENTATION, REDIRECTION AND 1:1 NEEDED. CONTINUE TO ENCOURAGE MED COMPLIANCE WELL GROUP ATTENDANCE AND PARTICIPATION.
[2019-08-07 19:35] VITALS: BP 110/62
--- NOTE | 2019-08-07 22:00 | NUR ---
MORE INTERACTIVE. TALKING ON PHONE AND TO PEERS AT TABLE. NO C/O. BILAT LOWER LEG EDEMA REMAINS UNCHANGED. ABLE TO MOVE ALL EXTREMETIES WITHOUT ASSISTANCE. NO S/S OF RESPONDING TO INTERNAL STIMULI. NO OUTBURST. DENIES DEPRESSIVE FEELINGS. WILL CONTINUE TO MONITOR FOR CHANGES IN MOOD/BEHAVIOR. WILL MONITOR SAFETY Q 15 MINUTES AND PRN
--- NOTE | 2019-08-08 01:52 | NUR ---
24 HR chart check completed.
--- NOTE | 2019-08-08 06:36 | NUR ---
SLEPT OVER 8 HOURS. MOVED SELF IN BED
[2019-08-08 08:00] VITALS: BP 105/68
--- NOTE | 2019-08-08 08:45 | NUR ---
DR BENITEZ ON UNIT TO ASSESS PT, ADVISED THAT PT IS SCHEDULED FOR DISCHARGE TODAY AND MEDICAL MEDS NEED COMPLETED.
--- NOTE | 2019-08-08 09:00 | NUR ---
Treatment Plan meeting was held with Dr. Aryan RN and [employer]. Plan for discharge today with return to [facility].
--- NOTE | 2019-08-08 09:30 | NUR ---
Spoke with Pt. who is her POA via telephone and notified of discharge today and greens picker time 11:30 via [facility].
[2019-08-08] MEDS ORDERED: PALIPERIDONE ER3 MG PO (10:35)
[2019-08-08] MEDS ORDERED: MIRTAZAPINE15 M2 PO (10:35)
[2019-08-08] MEDS ORDERED: TRIHEXYPHENIDYL2 M3 PO (10:35)
[2019-08-08] MEDS ORDERED: INVEGA SUSTENN234 MG IM (10:35)
[2019-08-08] MEDS ORDERED: EXELON13.3 MG/21 T (10:35)
--- NOTE | 2019-08-08 11:18 | NUR ---
NURSE TO NURSE REPORT GIVEN TO "CLINT" AT [facility].
--- NOTE | 2019-08-08 11:35 | NUR ---
PT DISCHARGED OFF UNIT AT THIS TIME VIA AMBULANCE STRETCHER. TWO AMBULANCE ATTENDANTS AND SECURITY PRESENT. STIFF STRAW HAT WASHER SIGNED FOR RECEIPT OF LOCKBOX ITEMS. PT WEARING GLASSES AND UPPER DENTURES. ALL BELONGINGS AND PAPERWORK SENT WITH PT AT THIS TIME. PT ALERT, SMILING, SAYING GOODBYE TO PEERS AND STAFF.
--- NOTE | 2019-08-08 11:42 | NUR ---
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 PT WAS ENGAGED AND CONTRIBUTED WITH RELAVANCE AND WAS ON TOPIC. PT EXPRESSED NO HALLUCINATIONS OR DELUSIONS WHILE IN GROUP. PT IS SET TO BE DISCHARGED FROM THE UNIT TODAY.
== END 2019-08-08 11:36 | disposition other institution (70) | DRG 885 ==
LOC: 3N 15:42
PROVIDERS: Nurse Practitioner Women's Health; ADMIT Psychiatry & Neurology Psychiatry
DX: F25.9 Schizoaffective disorder, unspecified (principal); J44.9 Chronic obstructive pulmonary disease, unspecified; F03.90 Unspecified dementia, unspecified severity, without behavioral disturbance, psychotic disturbance, mood disturbance, and anxiety; I10 Essential (primary) hypertension; F41.9 Anxiety disorder, unspecified; F17.210 Nicotine dependence, cigarettes, uncomplicated; E78.5 Hyperlipidemia, unspecified; G35 Multiple sclerosis; N32.81 Overactive bladder; D69.6 Thrombocytopenia, unspecified; E87.6 Hypokalemia; R73.9 Hyperglycemia, unspecified; R26.2 Difficulty in walking, not elsewhere classified; Z90.49 Acquired absence of other specified parts of digestive tract; Z79.899 Other long term (current) drug therapy; Z82.49 Family history of ischemic heart disease and other diseases of the circulatory system; Z88.8 Allergy status to other drugs, medicaments and biological substances; Z86.73 Personal history of transient ischemic attack (TIA), and cerebral infarction without residual deficits

== ENCOUNTER 2019-12-10 15:39 | Inpatient (IN) | payer MEDICARE, OTHER, MEDICAID ==
[~2019-12-10] VITALS: Ht 162.5 cm; Wt 94.0 kg
[~2019-12-10 15:39] MED LIST changes: +BIOFREEZE118 ML T; +CLONIDINE HCL0.1 MG PO; +CYCLOBENZAPRINE10 MG PO; +DULCOLAX STOOL100 MG PO; +EXELON13.3 MG/21 T; +HYDR25T PO; +IBUPROFEN600 MG PO; +INVEGA SUSTENN156 MG IM; +INVEGA SUSTENN234 MG IM; +MIRTAZAPINE15 M2 PO; +PALIPERIDONE ER3 MG PO; +TRIHEXYPHENIDYL2 M3 PO
[2019-12-10] MEDS ORDERED: ELIQUIS2.5 M1 PO (16:37)
[2019-12-10] MEDS ORDERED: MUCINEX ER600 MG PO (16:39)
[2019-12-10] MEDS ORDERED: RISPERDAL1 M1 PO (16:40)
[2019-12-10] MEDS ORDERED: TRAMADOL HCL50 MG PO (16:42)
[2019-12-10] MEDS ORDERED: SENNA8.6 MG PO (16:42)
[2019-12-10] MEDS ORDERED: VITAMIN D3125 MCG PO (16:49)
[2019-12-10] MEDS ORDERED: INVEGA SUSTENN234 MG IM (17:00)
--- NOTE | 2019-12-10 20:10 | NUR ---
LEIGH MADDEN a 68 year old F admitted via stretcher from the ADMITTING as a voluntary admission. Arrived on unit at 2010PM. ALLERGIES: SULFA ABX PER FACILITY. Vital signs are: 97.3-72-16 126/58. GUARDIAN GAVE VERBAL PERMISSION FOR ALL THE FOLLOWING forms with stated understanding: Authorization For The Release of Medical Information, Clothing List, Consent to Voluntary Admission and Hospitalization, Consent and Release Forms/Receipt of Rights, Acknowledgement of Advance Directive Information, Behavioral Health Consent Form, and Informed Consent of Medications. Admitted under the services of Dr. ASIA GRAY,[facility]. A search was conducted and hazardous articles were removed. ATTEMPTED TO ORIENT Client to the unit. ADRY COOMBS
--- NOTE | 2019-12-10 21:01 | NUR ---
PATIENT RAPID COVID TEST NEGATIVE. NATHANIEL PARRA RN
[2019-12-10 21:10] VITALS: BP 126/58
--- NOTE | 2019-12-10 21:10 | NUR ---
LEIGH MADDEN a 68 year old F admitted via stretcher from the ADMITTING as a voluntary admission. Arrived on unit at 2010PM. ALLERGIES: SULFA ABX PER FACILITY. Vital signs are: 97.3-72-16 126/58. GUARDIAN GAVE VERBAL PERMISSION FOR ALL THE FOLLOWING forms with stated understanding: Authorization For The Release of Medical Information, Clothing List, Consent to Voluntary Admission and Hospitalization, Consent and Release Forms/Receipt of Rights, Acknowledgement of Advance Directive Information, Behavioral Health Consent Form, and Informed Consent of Medications. Admitted under the services of Dr. ASIA GRAY,[facility]. A search was conducted and hazardous articles were removed. ATTEMPTED TO ORIENT Client to the unit. ADRY COOMBS
--- NOTE | 2019-12-10 22:33 | NUR ---
DR Rosario CHANEL NOTIFIED OF ADMISSION
--- NOTE | 2019-12-10 22:35 | NUR ---
DR Rosario CHANEL NOTIFIED OF ADMISSION
--- NOTE | 2019-12-11 00:06 | NUR ---
DR Rosario CHANEL HERE TO SEE CLIENT
--- NOTE | 2019-12-11 00:06 | NUR ---
DR Rosario CHANEL HERE TO SEE CLIENT
--- NOTE | 2019-12-11 02:30 | NUR ---
MARYANNEFARHADA [id number] Please refer to the physician's history and physical for past medical history, comorbid conditions, and allergies. Diagnosis: SCHIZO AFFECTIVE DISORDER Roverto Score: 15,AT RISK WOUND DESCRIPTIONS: Wound Number: 1 Location of the wound: left 4th toe Type of wound: traumatic Thickness: Partial Size: 0.2cm x 4.0cm x <0.1cm Tunneling: none Undermining: none Sinus Tract: none Presence of Exudate: none Amount: None Color: Purple, red Odor: None Periwound Skin Appearance: Erythema Wound edges: approximated with 4 sutures Pain (associated with wound): none at time of assessment How does patient state this happened? she ran it over with wheelchair Wound Number: 2 Location of the wound: left 3rd toe Type of wound: traumatic Thickness: Partial Size: 0.3cm x 0.3cm x <0.1cm Tunneling: none Undermining: none Sinus Tract: none Presence of Exudate: none Amount: None Color: Purple, red Odor: None Periwound Skin Appearance: Erythema Wound edges: approximated Pain (associated with wound): none at time of assessment How does patient state this happened? she ran it over with wheelchair Surface the patient is resting on: Proform SKIN PREVENTION RECOMMENDATION: 1. Pressure redistribution support surface as appropriate 2. Elevate heels 3. Remove boots/TEDS every shift and reapply 4. Head of bed 30 degrees as tolerated 5. Assess nutrition and hydration 6. Manage moisture 7. Avoid the use of containment devices while in bed 8. Use absorptive products on surfaces limit layers of linens on bed 9. Turn and reposition every 1-2 hours in bed and every 1 hour in chair as tolerated 10. Weight shifts every 15 minutes while up in chair 11. Offloading with pillows or device to keep heels elevated off bed 12. Monitor skin at least every shift 13. Inspect under medical devices twice a day WOUND TREATMENT RECOMMENDATIONS: Remove sutures on 12/17/19 Cleanse left 3rd and 4th toe apply dsd daily and prn for soiling. Heel raiser pro boots to bilateral feet while in bed. Cleanse periarea and buttocks with soap and water and apply hydraguard every shift and prn for soiling Wheelchair cushion when oob.
--- NOTE | 2019-12-11 03:06 | NUR ---
24 HR chart check completed.
--- NOTE | 2019-12-11 05:59 | NUR ---
SLEPT FROM ADMISSION THRU NOW. ALOT OF "POSSUMN" SLEEPING. 7 HOURS BROKEN CURRENTLY SLEEPING IN CHAIR
--- NOTE | 2019-12-11 06:00 | NUR ---
SLEPT FROM ADMISSION THRU NOW. ALOT OF "POSSUMN" SLEEPING. 7 HOURS BROKEN CURRENTLY SLEEPING IN CHAIR
--- NOTE | 2019-12-11 06:10 | NUR ---
Dr. Quiñonez notified of wound care recommendations
[2019-12-11 07:49] LABS: BASO % 0.5 % (0.0-1.0); EOS # 0.2 10*3/uL (0.0-0.4); EOS % 2.9 % (1.0-4.0); HEMATOCRIT 46.5 % (37.0-47.0); LYMPH % 26.4 % (27.0-41.0); MEAN CELL VOLUME 95.1 fl (81.0-99.0); MEAN CORPUSCULAR HGB 30.3 pg (27.0-31.0); MEAN CORPUSCULAR HGB CONC 31.8 g/dl (33.0-37.0); MONO # 0.9 10*3/uL (0.1-1.0); NEUT # 4.4 10*3/uL (2.3-7.9); NEUT % 57.7 % (47.0-73.0); PLATELET COUNT AUTOMATED 145 10*3/uL (130-400); RED BLOOD COUNT 4.89 10*6/uL (4.10-5.10); RED CELL DISTRI WIDTH 13.8 % (0-14.5); WHITE BLOOD COUNT 7.6 10*3/uL (4.8-10.8)
[2019-12-11 07:59] LABS: ALBUMIN 3.2 gm/dl (3.1-4.5); CREATININE 1.12 mg/dL (0.55-1.02); POTASSIUM 3.7 mmol/L (3.5-5.1); TOTAL PROTEIN 6.8 gm/dL (6.4-8.2)
[2019-12-11 08:00] VITALS: BP 150/61
[2019-12-11 08:13] LABS: THYROID STIM HORMONE (HS) 1.3 uIU/ml (0.358-4.75)
--- NOTE | 2019-12-11 08:15 | NUR ---
Treatment Plan meeting was held via telephone with Dr. Baeza, FELA Pathak, RAGHU, DATA DELIVERABLES MANAGER-S and Cat Scan Technologist. Plan for discharge Late next week. Pt. [facility]. Will reach out to facility to discuss discharge planning.
[2019-12-11 08:38] LABS: VITAMIN D, 25-HYDROXY 53.6 ng/mL (30-100)
--- NOTE | 2019-12-11 11:25 | NUR ---
Call placed to [facility], spoke with Alee Alcocer. Discussed discharge plans for Late next week per Dr. Baeza. Clinical Updates faxed to facility. Pt. will return to [place] at discharge. They are working to get patient to their sister facility [facility] But there are currently no beds at facility.
--- NOTE | 2019-12-11 16:16 | NUR ---
P: AGGRESSIVE WITH HANDS ON CARE, ISOLATIVE/WITHDRAWN, REFUSED TO TAKE WITH NURSE, REMAINED MUTE. GRABBING AT GRISEL PAD DURING TRANSFER TO BED FOR TOILETING NEEDS. I: ONE ON ONE, REDIRECTION PROVIDED. R: INEFFECTIVE. PATIENT IS ALERT TO SELF. NO RESPONSE TO INTERNAL STIMULI OBSERVED. NO VOICED STATEMENTS OF HI/SI OR PAIN. MOOD IS IRRITABLE, ANGRY, AGGRESSIVE AND LABILE. MEDICATION COMPLAINT. Q 15 MINUTE SAFETY CHECKS MAINTAINED. 3-4 ASSIST WITH HANDS ON CARE D/T AGGRESSION WITH TRANSFERS-MECHANICA LIFT. INCONTINENT OF BOWEL AND BLADDER. SET UP FOR MEALS, ONE ASSIST WITH MEALS DUE TO BILATERAL UPPER TREMORS. INTAKES ARE GOOD WITH ADEQUATE FLUIDS. UP IN BARBARA CHAIR FOR COMFORT. ISOLATIVE TO SELF. P: CONTINUE TO MONITOR FOR AGGRESSION AND HALLUCINATIONS. PROVIDE ONE ON ONE, REDIRECTION, SPACE AND CHANGE OF ENVIRONMENT WITH LOW STIMULI NEEDED.
[2019-12-11 19:57] VITALS: BP 113/80
--- NOTE | 2019-12-11 19:58 | NUR ---
SITTING IN BARBARA CHAIR IN FRONT OF NURSES STATION. LAYING ON RIGHT SIDE WITH ARM HANGING OVER CHAIR. TRIED TO GET CLIENT TO SIT UP AND GET OFF AXILLARY MUSCLE TO PREVENT DAMAGE BUT SHE REFUSES. WILL CONTINUE TO TRY TO GET HER TO SIT UP.
--- NOTE | 2019-12-11 20:53 | NUR ---
ATTEMPTED TWICE TO GIVE PM MEDICATIONS. FIRST WHOLE WITH WATER AND SHE SPIT THEM OUT. THEN CRUSHED THEM IN PUDDING AND SHE SPIT THEM OUT. SHE THEN ATTEMPTED TO BITE AND HIT STAFF DURING REPOSITIONING. WILL CONTINUE TO MONITOR
--- NOTE | 2019-12-11 21:15 | NUR ---
REFUSES TO OPEN MOUTH FOR ORAL CLEANING
--- NOTE | 2019-12-11 21:52 | NUR ---
REFUSES TO OPEN MOUTH FOR ORAL CLEANING
--- NOTE | 2019-12-11 22:50 | NUR ---
CONCEPCIÓN AREA CLEANED WITH BETADINE. STRAIGHT CATHED PER POLICY. RETURN OF THICK SLUDGE TYPE SEDIMENT URINE. COLOR WHITE/YELLOW. SENT TO LAB FOR TESTING PT IN POSITION OF COMFORT IN BED.
[2019-12-11 23:27] LABS: BILIRUBIN NEGATIVE (NEGATIVE); BLOOD TRACE-LYSED (NEGATIVE); CLARITY TURBID (CLEAR); COLOR YELLOW (YELLOW); GLUCOSE NEGATIVE (NEGATIVE); KETONE NEGATIVE (NEGATIVE); LEUKO ESTERASE 3+ (NEGATIVE); NITRITE POSITIVE (NEGATIVE); PH 8.5 (5.0-9.0); SPECIFIC GRAVITY 1.005 (1.005-1.030); UROBILINOGEN 0.2 E.U./dl (0.2-1.0)
[2019-12-11 23:32] LABS: BACTERIA 3+; WBC TNTC wbc/hpf (0-5)
--- NOTE | 2019-12-12 03:05 | NUR ---
Upon discharge recommend patient to follow up for wound care in outpatient setting continue current wound care orders at discharging facility.
--- NOTE | 2019-12-12 03:08 | NUR ---
24 HR chart check completed.
--- NOTE | 2019-12-12 05:37 | NUR ---
SLEPT WELL PAST MIDNIGHT. REPOSITIONED FOR COMFORT
[2019-12-12 07:44] VITALS: BP 146/82
--- NOTE | 2019-12-12 08:15 | NUR ---
Treatment Plan meeting was held via telephone with Dr. Baeza RN, EXTENSION COURSE COORDINATOR-S and Veneer Department Manager. Plan for discharge Next week. Pt. will return to [facility].
--- NOTE | 2019-12-12 08:52 | NUR ---
SPOKE WITH DR. BAHENA RE: PT UA RESULTS IN FOR REVIEW.
--- NOTE | 2019-12-12 10:46 | NUR ---
DR STRATTON AND TEAM ON THE UNIT TO ASSESS PT, UPDATE PROVIDED.
--- NOTE | 2019-12-12 13:16 | NUR ---
P: PT REFUSED AM AND 1300 PO MEDS. PT ISOLATIVE TO SELF THROUGHOUT THE SHIFT, REMAINS SELECTIVELY MUTE AT TIMES. I: PROVIDE EMOTIONAL SUPPORT AND 1:1 FOR PT TO VOICE FEELINGS, ENCOURAGE MED COMPLIANCE AND PROVIDE MED EDUCATION, ENCOURAGE GROUP PARTICIPATION AND SOCIALIZATION. R: PT ALERT TO PERSON ONLY WILL LOOK AT STAFF WHEN SPOKEN TO, WILL NOT ANSWER ANY ADDITIONAL ORIENTATION QUESTIONS. PT CONTINUES TO REFUSE MEDS, MULTIPLE ATTEMPTS MADE. NO HALLUCINATIONS OR DELUSIONS NOTED. NO SUICIDAL THOUGHTS OR BEHAVIORS NOTED. PT REQUIRES A GRISEL LIFT INTO A GERICHAIR D/T INABILITY TO BEAR WEIGHT INDEPENDENTLY. PT INCONTINENT OF BOWEL AND BLADDER. P: MONITOR PT BEHAVIORS ON Q15 MIN SAFETY CHECKS, ENCOURAGE MED COMPLIANCE AND PROVIDE MED EDUCATION, ENCOURAGE GROUP PARTICIPATION AND SOCIALIZATION, PROVIDE EMOTIONAL SUPPORT AND 1:1 FOR PT TO VOICE FEELINGS.
--- NOTE | 2019-12-12 15:40 | NUR ---
Pt did not interact with this magnetic tape typewriter operator today. Pt would not make eye contact. Pt sat in jessica-chair and stared straight forward. Did not observe pt interacting with peers or other staff members.
[2019-12-12 20:00] VITALS: BP 131/80
--- NOTE | 2019-12-12 22:42 | NUR ---
Patient alert to person only. Will look at staff when her name is called but patient does not talk. Mood is calm at this time. No overt s/s of any responding to internal stimuli noted. Patient non-compliant with HS medications by refusing to open mouth and shoving nurse's hand away. Patient mute and unable to assess. Q 15 minute safety checks continued and maintained. Will continue to monitor moods/behavior. See [facility] flowsheet for further documentation.
--- NOTE | 2019-12-13 00:32 | NUR ---
24 HR chart check completed.
--- NOTE | 2019-12-13 05:52 | NUR ---
Patient slept approx. 6 hours throughout shift. Q 15 minute safety checks continued and maitained.
[2019-12-13 07:43] VITALS: BP 132/83
--- NOTE | 2019-12-13 08:07 | NUR ---
Patient eating breakfast in dining room with peers. Respirations easy and regular. Vital signs stable. No overt distress. CARLY Watkins, assessed pt via telehealth. Updates provided. BLANCA FIERRO
--- NOTE | 2019-12-13 08:15 | NUR ---
Treatment Plan meeting was held via telephone with Dr. Baeza, FELA Pathak, RAGHU, BEREAVEMENT PROGRAM COORDINATOR-S and Rolling Machine Operator Automatic. Plan for discharge Late Next Week. Pt. will return to [facility].
--- NOTE | 2019-12-13 09:30 | NUR ---
AM GROUP "CRAFTING". PT WAS PRESENT FOR AM GROUP, BUT DECLINED TO PARTICIPATE.
--- NOTE | 2019-12-13 10:48 | NUR ---
Spoke with Alee Kendrick at [facility]. Advised of Discharge Plans for next week. Pt. will return at this point to [place] due to no beds at sister facility [facility].
--- NOTE | 2019-12-13 10:55 | NUR ---
Clinical Updates faxed to [facility] [phone].
--- NOTE | 2019-12-13 13:47 | NUR ---
PM GROUP MOVIE TIME- PT PRESENT DURING GROUP
--- NOTE | 2019-12-13 17:20 | NUR ---
P: PT REFUSED 0900 AND EVENING COZAAR. PT MOOD IS DEPRESSED AND HOPELESS/HELPLESS. PT MUTE THROUGOUT THE DAY REFUSING TO SPEAK TO STAFF OR PEERS. I: ENCOURAGE MED COMPLIANCE AND PROVIDE MED EDUCATION, PROVIDE EMOTIONAL SUPPORT AND 1:1 FOR PT TO VOICE FEELINGS, ENCOURAGE GROUP PARTICIPATION AND SOCIALIZATION. R: PT ALERT TO PERSON ONLY, WILL LOOK WILL NAME IS CALLED, BUT OTHERWISE REFUSES TO SPEAK TO STAFF OR ANSWER ANY ORIENTATION QUESTIONS. PT MOOD REMAINS DEPRESSED. PT CONTINUES TO REFUSE 0900 AND EVENING MEDS, MULTIPLE ATTEMPTS MADE. PT [facility]. PT INCONTINENT OF BOWEL AND BLADDER, CARE PROVIDED NEEDED. P: ENCOURAGE MED COMPLIANCE AND PROVIDE MED EDUCATION, ENCOURAGE GROUP PARTICIPATION AND SOCIALIZAITON, PROVIDE EMOTIONAL SUPPORT AND 1:1 FOR PT TO VOICE FEELINGS.
[2019-12-13 20:00] VITALS: BP 130/82
--- NOTE | 2019-12-13 21:19 | NUR ---
Patient alert to person only. Will look at staff when her name is called but patient does not talk. Mood is calm at this time. No overt s/s of any responding to internal stimuli noted. Patient non-compliant with HS medications by refusing to open mouth and shoving nurse's hand away. Patient mute and unable to assess. Plan to continue to encourage patient to be compliant with medications. Q 15 minute safety checks continued and maintained. Will continue to monitor moods/behavior. See [facility] flowsheet for further documentation.
--- NOTE | 2019-12-14 00:17 | NUR ---
24 HR chart check completed.
--- NOTE | 2019-12-14 05:15 | NUR ---
Patient slept approx. 9 hours throughout shift. Q 15 minute safety checks continued and maintained.
[2019-12-14 07:50] VITALS: BP 125/89
[2019-12-14 19:47] VITALS: BP 101/68
--- NOTE | 2019-12-14 21:06 | NUR ---
24 HR chart check completed.
--- NOTE | 2019-12-14 23:03 | NUR ---
P-DEPRESSED I-ENCOURAGE VERBAL INTERACTION, ADMINISTER MEDS, MONITOR SLEEP R-PT ALERT TO PERSON ONLY. SELSECTIVELY MUTE. ANSWERS YES/NO. MOOD DEPRESSED. COMPLIANT TAKING MEDS WHOLE. COMPLIANT WITH MOUTH CHECKS. 2 STAFF ASSISTS. ATE SNACK. INCONTINENT OF URINE.
--- NOTE | 2019-12-15 00:52 | NUR ---
PT INCONTINENT OF URINE & ASKED TO BE CHANGED. 2 STAFF ASSIST PROVIDED. STAFF WAS WALKING OUT THE DOOR, PT STATED, "CAN YOU DO ME A FAVOR & HAND ME MY GRAND DAUGHTER. SHE'S RIGHT THERE" PT POINTED TO THE FLOOR. REORIENTED THAT HER GRAND DAUGHTER IS NOT THERE & SHE IS IN [facility]. PT MADE NO RESPONSE.
--- NOTE | 2019-12-15 06:22 | NUR ---
PT HAS REMAINED AWAKE THROUGHOUT THE ENTIRE SHIFT RESTING IN BED QUIETLY
[2019-12-15 07:52] VITALS: BP 126/88
--- NOTE | 2019-12-15 10:30 | NUR ---
on unit to see pt at this time.
[2019-12-15 18:03] VITALS: BP 98/60
--- NOTE | 2019-12-15 18:04 | NUR ---
NOTIFIED OF BP 98/60 MANUAL, HR 98. STATES OK TO HOLD COZAAR AT THIS TIME.
--- NOTE | 2019-12-15 18:46 | NUR ---
NO ADVERSE MOODS OR BEHAVIORS NOTED. MEDICATION COMPLIANT WITHOUT DIFFICULTY. SEE [facility] FLOWSHEET FOR SPECIFIC MONITORING
--- NOTE | 2019-12-15 19:55 | NUR ---
24 HR chart check completed.
--- NOTE | 2019-12-15 19:58 | NUR ---
24 HR chart check completed.
--- NOTE | 2019-12-15 20:15 | NUR ---
COMPLETE BED BATH DONE
--- NOTE | 2019-12-15 22:35 | NUR ---
P-DEPRESSED I-ENCOURAGE VERBAL INTERACTION, ADMINISTER MEDS, MONITOR SLEEP R-PT ALERT TO PERSON, MONTH & YEAR BUT NOT PLACE OR SITUATION. LIMITED VERBALLY. MOOD DEPRESSED. STATED SHE IS FEELING "PRETTY GOOD". COMPLIANT TAKING MEDS WHOLE. 2 STAFF ASSISTS. ATE SNACK. INCONTINENT OF URINE. P-CONTINUE TO MONITOR.
--- NOTE | 2019-12-16 05:45 | NUR ---
PT HAS SLEPT QUIETLY PAST 2229
[2019-12-16 07:48] VITALS: BP 112/81
--- NOTE | 2019-12-16 10:53 | NUR ---
DR STRATTON ON UNIT TO ASSESS PT, UPDATE PROVIDED.
--- NOTE | 2019-12-16 12:56 | NUR ---
NO ADVERSE MOODS OR BEHAVIORS NOTED. PT QUIETLY RESTING IN THE DINNINGROOM. MEDICATION COMPLIANT. WILL CONTINUE TO MONITOR BEHAVIORS WITH Q15 MINUTE SAFETY CHECKS.
[2019-12-16 20:00] VITALS: BP 115/62
--- NOTE | 2019-12-16 20:50 | NUR ---
P-MILDLY DEPPRESSED I-ENCOURAGE VERBAL INTERACTION, ADMINISTER MEDS, MONITOR SLEEP R-PT ALERT TO PERSON, PLACE, MONTH & YEAR BUT NOT SITUATION. LIMITED VERBALLY. MOOD MILDLY DEPRESSED. STATED SHE IS FEELING "PRETTY GOOD" & SHE IS "FEELING BETTER." COMPLIANT TAKING MEDS WHOLE. 2 STAFF ASSISTS. ATE SNACK. INCONTINENT OF URINE. P-CONTINUE TO MONITOR.
--- NOTE | 2019-12-16 21:03 | NUR ---
24 HR chart check completed.
--- NOTE | 2019-12-17 05:38 | NUR ---
PT HAS SLEPT PAST 2114 WITH 1 BRIEF AWAKENING.
[2019-12-17 07:34] VITALS: BP 115/82
--- NOTE | 2019-12-17 08:15 | NUR ---
Treatment Plan meeting was held via telephone with Dr. Baeza, FELA Pathak, RAGHU and Aquarium Specialist. Plan for discharge /Monday with return to [facility]. Clinical Updates faxed to Facility and Spoke with Alee Kendrick Admissions this a.m. to inform of discharge plans.
--- NOTE | 2019-12-17 10:23 | NUR ---
KATY AGRAWAL CNP ON UNIT TI ASSESS PATIENT.
--- NOTE | 2019-12-17 13:00 | NUR ---
SUTURES REMOVED FROM LEFT FOOT, 4TH DIGIT, WELL APPROXIMATED. NO COMPLAINTS OF PAIN NOTED. BANDAIDE APPLIED. PATIENT TOLERATED WELL.
--- NOTE | 2019-12-17 14:45 | NUR ---
P: RESPONDING TO INTERNAL STIMULI, STATING, "THERE IS SOMETHING MOVING IN MY STOMACH. MY SISTER AND BROTHER DO YARSANISM". C/O OF BEING CONSTIPATED AND ASKED FOR MOM. AFTER PROVIDING HANDS ON CARE. PATEINT ASKED CO-NURSE FOR "A [facility] CALL [facility] I: ONE ON ONE, REDIRECTION AND ORIENTATION PROVIDED. R: EFFECTIVE. PATIENT IS ALERT TO PERSON, PLACE AND TIME WITH CONFUSION. MEMORY GAPS NOTED. MOOD IS CALM, PLEASANT; STABLE. RESPONDING TO INTERNAL STIMULI. VOICING DELUSIONAL THOUGHTS. 2 PERSON ASSIST WITH ACTIVITIES OF DAILY LIVING, INCONTINENT OF BOWEL AND BLADDER. SET UP FOR MEALS, INTAKES ARE GOOD WITH ADEQUATE FLUIDS. MEDICATION COMPLIANTS. Q 15 MINUTE SAFETY CHECKS. P: CONTINUE TO MONITOR FOR HALLUCINATIONS, DELUSIONS, DEPRESSION, RESISTANCE WITH HANDS ON CARE. PROVIDE ONE ON ONE, REDIRECTION/ORIENTATION NEEDED.
--- NOTE | 2019-12-17 15:09 | NUR ---
Shift chart check completed.
--- NOTE | 2019-12-17 19:46 | NUR ---
24 HR chart check completed.
[2019-12-17 19:53] VITALS: BP 113/72
--- NOTE | 2019-12-17 21:04 | NUR ---
P-MILDLY DEPPRESSED I-ENCOURAGE VERBAL INTERACTION, ADMINISTER MEDS, MONITOR SLEEP R-PT ALERT TO PERSON, PLACE, MONTH & YEAR BUT NOT SITUATION. MOOD MILDLY DEPRESSED. STATED SHE IS "FEELING BETTER". COMPLIANT TAKING MEDS WHOLE. 2 STAFF ASSISTS. ATE SNACK. NO DELUSIONS VOICED THIS EVENING. SAT IN THE DINING ROOM WATCHING A MOVIE P-CONTINUE TO MONITOR.
--- NOTE | 2019-12-18 00:30 | NUR ---
PT INCONTINENT OF A VERY LARGE BM AT THIS TIME
--- NOTE | 2019-12-18 04:37 | NUR ---
PT HAS SLEPT PAST 2244
--- NOTE | 2019-12-18 06:28 | NUR ---
LEIGH MADDEN [id number] Please refer to the physician's history and physical for past medical history, comorbid conditions, and allergies. Diagnosis: SCHIZO AFFECTIVE DISORDER Roverto Score: 15,AT RISK WOUND DESCRIPTIONS: Wound Number: 1 Location of the wound: left 4th toe Type of wound: traumatic Thickness: Partial Size: 0.2cm x 2.7cm x <0.1cm Tunneling: none Undermining: none Sinus Tract: none Presence of Exudate: none Amount: None Color: Red Odor: None Periwound Skin Appearance; Normal Wound edges: approximated Pain (associated with wound): none at time of assessment How does patient state this happened? she ran it over with wheelchair Wound Number: 2 Location of the wound: left 3rd toe Type of wound: traumatic Thickness: Partial Size: 0.3cm x 0.3cm x <0.1cm Tunneling: none Undermining: none Sinus Tract: none Presence of Exudate: none Amount: None Color: Red Odor: None Periwound Skin Appearance: Normal Wound edges: approximated Pain (associated with wound): none at time of assessment How does patient state this happened? she ran it over with wheelchair Surface the patient is resting on: Proform SKIN PREVENTION RECOMMENDATION: 1. Pressure redistribution support surface as appropriate 2. Elevate heels 3. Remove boots/TEDS every shift and reapply 4. Head of bed 30 degrees as tolerated 5. Assess nutrition and hydration 6. Manage moisture 7. Avoid the use of containment devices while in bed 8. Use absorptive products on surfaces limit layers of linens on bed 9. Turn and reposition every 1-2 hours in bed and every 1 hour in chair as tolerated 10. Weight shifts every 15 minutes while up in chair 11. Offloading with pillows or device to keep heels elevated off bed 12. Monitor skin at least every shift 13. Inspect under medical devices twice a day WOUND TREATMENT RECOMMENDATIONS: Continue dressing change to left 3rd toe and left 4th toe Continue heel raiser pro boots to bilateral feet while in bed Continue hydraguard to periarea and buttocks every shift and prn Continue wheelchair cushion when oob.
[2019-12-18 07:42] VITALS: BP 107/60
--- NOTE | 2019-12-18 08:15 | NUR ---
Treatment Plan meeting was held via telephone with Dr. Baeza, FELA Pathak, RAGHU, TOOLMAKER GRADE THREE-S and Junk Removal Specialist. Plan for discharge with return to [facility].
--- NOTE | 2019-12-18 12:59 | NUR ---
No adverse moods or behaviors as of this time in the shift. Pt is alert and oriented to person, place, approx time and situation. Memory gaps noted. Resps easy and even on room air. Mood appears stable, affect flat. Speech is soft, coherent, able to make needs known without difficulty. Pt denies SI/HI, intent or plan. Pt denies hallucinations, no response to internal stimuli noted. No paranoia or delusions noted. Pt asking appropriate questions about her treatment and medications. Medication education provided and well recieved by pt. Pt is calm, pleasant and cooperative. No distress noted. Plan to continue current treatment, continue to monitor mood and behaviors, provide appropriate reorientation, redirection and 1:1 as needed. Continue to encourage medication compliance as well as group attendance and participation.
--- NOTE | 2019-12-18 16:04 | NUR ---
Attempted to reach Pt. via telephone to discuss discharge Plans for tommorow and transportation and crop picker time. Unable to leave a message.
[2019-12-18 19:57] VITALS: BP 125/87
--- NOTE | 2019-12-18 23:00 | NUR ---
Patient alert to person,place,approx. to time and situation. Mood slightly depressed. Patient able to make needs known and able to ask and answer questions appropriately. No overt s/s of any responding to internal stimuli noted. Patient compliant with HS medications without any difficulty. Provided 1:1 for emotional support and redirected/reoriented when needed. Plan to continue to encourage compliant with medications. Also continue to provide emotional support and continued to redirect/reorient when needed/appropriate. Q 15 minute safety checks continued and maintained. Will continue to monitor moods/behavior. See [facility] flowsheet for further documentation.
--- NOTE | 2019-12-19 00:25 | NUR ---
24 HR chart check completed.
--- NOTE | 2019-12-19 06:27 | NUR ---
Patient slept approx. 2 hours throughout shift. Q 15 minute safety checks continued and maintained.
[2019-12-19 08:00] VITALS: BP 145/67
--- NOTE | 2019-12-19 08:15 | NUR ---
Treatment Plan meeting was held via telephone with Dr. Baeza RN, OPERATIONS MANAGER STATION-S and aerospace project engineer. Plan for discharge today. Transportation has been arranged with [facility] to transport with pick remover time 12:30 p.m. Facility aware of discharge, Spoke with Alee Kendrick in admissions. Pt. LENORE her also aware of discharge. Psychiatric follow up at facility 1 x month or PRN, Primary care follow up at facility 1 x month or PRN.
--- NOTE | 2019-12-19 08:56 | NUR ---
rounded and updated on pt progress via telemedicine. Medication orders updated per .
[2019-12-19] MEDS ORDERED: NAMENDA-5 PO (09:13)
[2019-12-19] MEDS ORDERED: REMERON15 M2 PO (09:14)
--- NOTE | 2019-12-19 11:37 | NUR ---
Discharge Paperwork Faxed to [facility] Attn: Alee.
--- NOTE | 2019-12-19 11:41 | NUR ---
No adverse moods or behaviors this shift. Pt denies SI/HI, intent or plan. No voiced paranoia or delusions. Medication compliant without difficulty. No inappropriate behaviors displayed. Pt states she feels good and is ready for discharge. Pt is calm, pleasant and cooperative. Discharge wound photos taken. Plan to assist pt in preparing for hospital discharge this date.
--- NOTE | 2019-12-19 12:15 | NUR ---
[facility]urse [facility]
--- NOTE | 2019-12-19 12:40 | NUR ---
Pt discharged at this time to [facility] via [facility] ambulance service with 2 ROBOT TECHNICIAN. All personal belongings were sent with the pt including earl pad. Discharge packet provided for facility and packet will be sent to [facility]. Pt left the unit in stable condition at 1240.
--- NOTE | 2019-12-20 13:39 | NUR ---
No Discharge Summary has been completed for this patient. Calls received form [facility]. Advised that No Discharge Summary is available at this time. Notified Darling Babb Director of [facility] that Discharge Summary is requested and will require Fax to facility.
== END 2019-12-19 12:40 | DRG 885 ==
LOC: 3N 15:39
PROVIDERS: ADMIT Psychiatry & Neurology Psychiatry
DX: F33.3 Major depressive disorder, recurrent, severe with psychotic symptoms (principal); N39.0 Urinary tract infection, site not specified; I10 Essential (primary) hypertension; G20 Parkinson's disease; F03.90 Unspecified dementia, unspecified severity, without behavioral disturbance, psychotic disturbance, mood disturbance, and anxiety; E78.5 Hyperlipidemia, unspecified; J44.9 Chronic obstructive pulmonary disease, unspecified; G35 Multiple sclerosis; N32.81 Overactive bladder; R26.2 Difficulty in walking, not elsewhere classified; B96.4 Proteus (mirabilis) (morganii) as the cause of diseases classified elsewhere; F17.210 Nicotine dependence, cigarettes, uncomplicated; Z66 Do not resuscitate; Z51.5 Encounter for palliative care; Z86.73 Personal history of transient ischemic attack (TIA), and cerebral infarction without residual deficits; Z88.2 Allergy status to sulfonamides; Z88.1 Allergy status to other antibiotic agents; Z90.49 Acquired absence of other specified parts of digestive tract; Z82.49 Family history of ischemic heart disease and other diseases of the circulatory system; Z79.899 Other long term (current) drug therapy